=== PATIENT | male | born 1945 | race Caucasian/White ===

== ENCOUNTER 2020-04-06 08:40 | Outpatient (CLI) | payer MEDICARE, OTHER, SELFPAY ==
--- NOTE | 2020-04-06 08:48 | US_ITS ---
WS: [id number] RENAL ULTRASOUND HISTORY: CKD STAGE 3 COMPARISON: None available. TECHNIQUE: 2-D and color Doppler imaging of the kidney submitted. Right kidney: 10.1 cm x 4.0 cm x 4.9 cm. Normal echogenicity with no hydronephrosis or mass. Left kidney: 10.4 cm x 4.6 cm x 6.0 cm. Normal echogenicity with no hydronephrosis or mass. Cortical cyst lower pole measures 1.3 x 1.7 x 1.8 cm. No solid mass. Aorta: Normal. Urinary Bladder: Normal distention. US/US renal BI* [id number] IMPRESSION: 1. No hydronephrosis. 2. Simple cyst lower pole LEFT kidney.
== END 2020-04-06 08:41 | disposition home or self-care (01) ==
LOC: RAD 08:51 → CDL 08:53 → RAD 08:54
PROVIDERS: PCP Internal Medicine; Visit Provider Internal Medicine
DX: N28.1 Cyst of kidney, acquired (principal); N18.30 Chronic kidney disease, stage 3 unspecified
CPT/HCPCS: 76770

== ENCOUNTER 2023-09-14 08:05 | Outpatient (CLI) | payer MEDICARE, SELFPAY ==
--- NOTE | 2023-09-14 08:11 | US_ITS ---
WS: [id number] ULTRASOUND ABDOMEN CLINICAL INFORMATION: THROMBOCYTOPENIA COMPARISON: Ultrasound 2020 FINDINGS: Liver Size: Mild hepatomegaly. Craniocaudal length: 16.4 cm. Echogenicity: Coarse Surface nodularity: None. Mass (size and location): None. Bile ducts Intrahepatic ducts: Normal. Common bile duct diameter: 0.4 cm. Gallbladder Normal. Gallstones: None. Gallbladder sludge: None. Gallbladder wall thickening: None. Pericholecystic fluid: None. Sonographic Mayers sign: Absent. Pancreas Not well visualized Spleen Splenomegaly: None. Craniocaudal length: 9.9 cm. Right kidney: Normal. Hydronephrosis: None. Size: 9.5 cm x 4.3 cm x 4.5 cm Left kidney: Simple cyst described below. Hydronephrosis: None. Size: 10.9 cm x 3.6 cm x 4.1 cm. Abdominal aorta and IVC Visualized portions are normal. Ascites: None. IMPRESSION: 1. Mild hepatomegaly with coarse hepatic echogenicity compatible with fatty infiltration. 2. Normal gallbladder. Normal common bile duct. 3. Simple cyst LEFT kidney measuring 2.2 x 2.2 x 2.5 cm. Previously this measured 1.3 x 1.6 x 1.7 cm . No hydronephrosis.
== END 2023-09-14 08:06 | disposition home or self-care (01) ==
LOC: RAD 08:07
PROVIDERS: PCP Internal Medicine; Visit Provider Internal Medicine
DX: D69.6 Thrombocytopenia, unspecified (principal); R16.0 Hepatomegaly, not elsewhere classified; N28.1 Cyst of kidney, acquired
CPT/HCPCS: 76700

== ENCOUNTER → 2023-11-22 14:04 | Outpatient (BNVA) | payer MEDICARE, SELFPAY | PROVIDERS: PCP Internal Medicine; Visit Provider Dermatology | DX: D48.5 Neoplasm of uncertain behavior of skin (principal); L57.0 Actinic keratosis; L82.1 Other seborrheic keratosis; L57.8 Other skin changes due to chronic exposure to nonionizing radiation; Q80.0 Ichthyosis vulgaris; L81.4 Other melanin hyperpigmentation | CPT/HCPCS: 11102; 17000; 99204 ==

== ENCOUNTER → 2023-12-26 10:51 | Outpatient (BNVA) | payer MEDICARE, SELFPAY | PROVIDERS: PCP Internal Medicine; Visit Provider Dermatology | DX: C44.529 Squamous cell carcinoma of skin of other part of trunk (principal); L57.0 Actinic keratosis; L82.0 Inflamed seborrheic keratosis | CPT/HCPCS: 11602; 13101; 17000; 17110 ==

== ENCOUNTER 2024-05-06 07:45 | Outpatient (CLI) | payer MEDICARE, SELFPAY ==
--- NOTE | 2024-05-06 07:51 | XRR_ITS ---
PROCEDURE INFORMATION: Exam: XR Left Wrist Exam date and time: 05/06/2024 8:09 AM Age: 79 years old Clinical indication: Pain; Wrist; Left; Additional info: Pain in left wrist TECHNIQUE: Imaging protocol: Radiologic exam of the left wrist. Views: 3 or more views. Frontal Oblique Lateral COMPARISON: No relevant prior studies available. FINDINGS: Bones/joints: Moderate to severe generalized bony degenerative changes. Severe bony sclerosis, osteophytes and joint space narrowing between the distal radius ulna and proximal lunate. Moderate to severe degenerative changes identified within the 1st carpal metacarpal articulation. Moderate to severe lateral wrist sclerosis with osteophytes, joint space narrowing. Diffusely decreased bone density. No visualized evidence for acute bony fracture or dislocation. Soft tissues: The soft tissue appear unremarkable. Notes: If there is further concern, followup radiographs or MRI of the wrist may be performed for complete assessment. XR/XR wrist LT min 3V* [id number] IMPRESSION: 1. Moderate to severe chronic bony degenerative changes. 2. No acute bony fracture or dislocation.
== END 2024-05-06 07:46 | disposition home or self-care (01) ==
LOC: RAD 07:46
PROVIDERS: PCP Internal Medicine; Visit Provider Internal Medicine
DX: M19.032 Primary osteoarthritis, left wrist (principal); M25.732 Osteophyte, left wrist
CPT/HCPCS: 73110

== ENCOUNTER → 2024-05-12 14:16 | Outpatient (BNVA) | payer MEDICARE, SELFPAY | PROVIDERS: PCP Internal Medicine; Visit Provider Nurse Practitioner Family | DX: Q80.0 Ichthyosis vulgaris (principal); L82.1 Other seborrheic keratosis; L57.8 Other skin changes due to chronic exposure to nonionizing radiation; L81.4 Other melanin hyperpigmentation; Z85.828 Personal history of other malignant neoplasm of skin; L57.0 Actinic keratosis | CPT/HCPCS: 17000; 99214 ==

== ENCOUNTER → 2024-11-06 08:04 | Outpatient (BNVA) | payer MEDICARE, SELFPAY | PROVIDERS: PCP Internal Medicine; Visit Provider Nurse Practitioner Family | DX: Q80.0 Ichthyosis vulgaris (principal); L82.1 Other seborrheic keratosis; L57.8 Other skin changes due to chronic exposure to nonionizing radiation; L81.4 Other melanin hyperpigmentation; Z08 Encounter for follow-up examination after completed treatment for malignant neoplasm; Z85.828 Personal history of other malignant neoplasm of skin; L57.0 Actinic keratosis | CPT/HCPCS: 17000; 99214 ==

== ENCOUNTER → 2025-02-09 14:52 | Outpatient (BNVA) | payer MEDICARE, SELFPAY | PROVIDERS: PCP Internal Medicine; Visit Provider Nurse Practitioner Family | DX: L81.4 Other melanin hyperpigmentation (principal); L57.8 Other skin changes due to chronic exposure to nonionizing radiation; X32.XXXA Exposure to sunlight, initial encounter; L82.1 Other seborrheic keratosis; Z08 Encounter for follow-up examination after completed treatment for malignant neoplasm; Z85.828 Personal history of other malignant neoplasm of skin; S20.461A Insect bite (nonvenomous) of right back wall of thorax, initial encounter; X58.XXXA Exposure to other specified factors, initial encounter; L82.0 Inflamed seborrheic keratosis; L29.89 Other pruritus; R20.9 Unspecified disturbances of skin sensation; R20.8 Other disturbances of skin sensation; L53.8 Other specified erythematous conditions | CPT/HCPCS: 10120; 17110; 99213 ==

== ENCOUNTER → 2025-05-11 13:13 | Outpatient (BNVA) | payer MEDICARE, SELFPAY | PROVIDERS: PCP Internal Medicine; Visit Provider Nurse Practitioner Family | DX: L21.8 Other seborrheic dermatitis (principal); L82.1 Other seborrheic keratosis; L57.8 Other skin changes due to chronic exposure to nonionizing radiation; X32.XXXA Exposure to sunlight, initial encounter; L81.4 Other melanin hyperpigmentation; Z08 Encounter for follow-up examination after completed treatment for malignant neoplasm; Z85.828 Personal history of other malignant neoplasm of skin; L57.0 Actinic keratosis | CPT/HCPCS: 17000; 99214 ==

== ENCOUNTER 2025-05-19 13:06 | Outpatient (CLI) | payer MEDICARE, SELFPAY ==
--- NOTE | 2025-05-19 13:10 | XRR_ITS ---
PROCEDURE INFORMATION: Exam: XR Lumbosacral Spine Exam date and time: 05/19/2025 1:16 PM Age: 80 years old Clinical indication: Low back pain; PT states lower rib pain x few weeks. ; Additional info: Degenerative disc disease, lumbosacral spine w/ radiculopath TECHNIQUE: Imaging protocol: Radiologic exam of the lumbosacral spine. Views: 4 or 5 views. COMPARISON: No relevant prior studies available. FINDINGS: Bones/joints: Multilevel moderate to severe disc space narrowing and productive degenerative endplate changes throughout the spine most significant at L1-L2 and L5/S1. Soft tissues: Unremarkable. Vasculature: Scattered vascular calcifications. XR/XR lumbar spine min 4V [id number] IMPRESSION: 1. Multilevel moderate to severe disc space narrowing and productive degenerative endplate changes throughout the spine most significant at L1-L2 and L5/S1. 2. Scattered vascular calcifications.
--- NOTE | 2025-05-19 13:10 | XRR_ITS ---
PROCEDURE INFORMATION: Exam: XR Right Ribs Exam date and time: 05/19/2025 1:16 PM Age: 80 years old Clinical indication: Chest wall pain; Right; Additional info: Right sided rib pain TECHNIQUE: Imaging protocol: Radiologic exam of the right ribs. Views: 2 views. COMPARISON: No relevant prior studies available. FINDINGS: Bones/joints: Normal. Soft tissues: Normal. XR/XR ribs RT 2V* [id number] IMPRESSION: No acute findings.
== END 2025-05-19 13:07 | disposition home or self-care (01) ==
LOC: RAD 13:08
PROVIDERS: PCP Internal Medicine; Visit Provider Internal Medicine
DX: R07.81 Pleurodynia (principal); M51.17 Intervertebral disc disorders with radiculopathy, lumbosacral region; M51.369 Other intervertebral disc degeneration, lumbar region without mention of lumbar back pain or lower extremity pain; M51.379 Other intervertebral disc degeneration, lumbosacral region without mention of lumbar back pain or lower extremity pain; R93.7 Abnormal findings on diagnostic imaging of other parts of musculoskeletal system
CPT/HCPCS: 71100; 72110

== ENCOUNTER 2025-05-22 15:36 | Emergency (ER) | payer MEDICARE, SELFPAY ==
[2025-05-22 15:40] VITALS: BP 182/105; PULSE 128; RESP 18; TEMP 36.9; O2SAT 96; BMI 25.1
--- NOTE | 2025-05-22 15:40 | XRR_ITS ---
PROCEDURE INFORMATION: Exam: XR Abdomen Exam date and time: 05/22/2025 5:00 PM Age: 80 years old Clinical indication: Constipation TECHNIQUE: Imaging protocol: Radiologic exam of the abdomen. Views: Frontal supine view of the abdomen. 1 View. COMPARISON: CR XR lumbar spine min 4V [id number] 05/19/2025 1:16 PM FINDINGS: Gastrointestinal tract: Perhaps moderate colonic stool burden.Nonobstructive bowel gas pattern. Bones/joints: Lumbar spondylosis. XR/XR KUB [id number] IMPRESSION: Nonobstructive bowel gas pattern.
--- OUTSIDE RECORDS SUMMARY | 2025-05-22 15:42 | XMS_ITS | Encounter Summary ---
Author Organization [facility] Address [address] [place] [address] Care Team Providers Care Shredder Tender Name Role Phone Unavailable Primary Care Provider Unavailabl e Encounter Details Date Type Department Care Team (Latest Contact Info) Description 04/30/1998 Outpatient Historical [facility] Dermatology- [facility] [address] [place] [id number] Jarred Isaacs MD NO ADDRESS ON FILE Actinic keratosis (Primary Dx); Other seborrheic keratosis Social History Tobacco Use Types Packs/Day Years Used Date Smoking Tobacco: Never Assessed Sex and Gender Information Value Date Recorded Sex Assigned at Not on file 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
--- OUTSIDE RECORDS SUMMARY | 2025-05-22 15:42 | XMS_ITS | Encounter Summary ---
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
--- OUTSIDE RECORDS SUMMARY | 2025-05-22 15:42 | XMS_ITS | Encounter Summary ---
Author Organization [facility] Address [address] [place] [address] Care Team Providers Care Cardiology Fellow Name Role Phone Unavailable Primary Care Provider Unavailabl e Encounter Details Date Type Department Care Team (Late st Contact Info) Description 05/21/2002 Outpatient Historical [facility] Dermatology- [facility] [place] [address] [place] [phone] Social History Tobacco Use Types Packs/Day Years Used Date Smoking Tobacco: Never Assessed Sex and Gender Information Value Date Recorded Sex Assigned at Not on file 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
--- OUTSIDE RECORDS SUMMARY | 2025-05-22 15:42 | XMS_ITS | Encounter Summary ---
Author Organization [facility] Address [address] [facility] Attn: [place] [address] Care Team Providers Care House Cleaner Supervisor Name Role Phone Unavailable Primary Care Provider Unavailabl e Encounter Details Date Type Department Care Team (Late st Contact Info) Description 03/17/2002 Outpatient Historical Jarred Isaacs MD NO ADDRESS ON FILE Social History Tobacco Use Types Packs/Day Years Used Date Smoking Tobacco: Never Assessed Sex and Gender Information Value Date Recorded Sex Assigned at Not on file 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
--- OUTSIDE RECORDS SUMMARY | 2025-05-22 15:42 | XMS_ITS | Clinical Summary ---
Author Organization [facility] Address [address] [place] [address] Care Team Providers Care Cosmetic Sales Name Role Phone Unavailable Primary Care Provider Unavailabl e Medications No known medications Active Problems Problem Noted Date Diagnosed Date Fibromyalgia 05/13/2012 Family History Medical History Relation Name Comments Healthy Brother Stroke Father Heart Disease Mother Healthy Sister Healthy Son 1 Healthy Son 2 Relation Name Status Comments Brother Alive Father Mother Sister Alive Son 1 Alive Son 2 Alive Social History Tobacco Use Types Packs/Day Years Used Date Smoking Tobacco: Never Alcohol Use Standard Drinks/Week Comments Yes 0 (1 standard drink = 0.6 oz pur e alcohol) 1 12 oz. 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 Gender Identity Not on file Sexual Orientation Not on file Last Filed Vital Signs Vital Sign Reading Time Taken Comments Blood Pressure 154/92 05/13/2012 10:28 AM BARGE ENGINEER Pulse 64 05/13/2012 10:28 AM BARGE ENGINEER Temperature - - Respiratory Rate - - Oxygen Saturation - - Inhaled Oxygen Concentration - - Weight 85.3 kg (188 lb) 05/13/2012 10:28 AM BARGE ENGINEER Height 175.3 cm (5' 9 ) 05/13/2012 10:28 AM BARGE ENGINEER Body Mass Index 27.76 05/13/2012 10:28 AM BARGE ENGINEER Plan of Treatment Health Maintenance Due Date Last Done Comments DTAP/TDAP/TD VACCINES (1 - Tdap) 1962 PNEUMOCOCCAL VACCINE 50+ YEARS (1 of 1 - PCV) 02/08/19 93 ZOSTER VACCINE (1 of 2) 1993 RSV VACCINE (60+ or ) (1 - 1-dose 75+ series) 2018 INFLUENZA VACCINE (#1) 2025 Insurance MEDICARE PART A AND B [facility]
--- OUTSIDE RECORDS SUMMARY | 2025-05-22 15:42 | XMS_ITS | Encounter Summary ---
Author Organization [facility] Address [address] [place] [address] Care Team Providers Care Bun Machine Operator Name Role Phone Unavailable Primary Care Provider Unavailabl e Encounter Details Date Type Department Care Team (Latest Contact Info) Description 03/13/2002 Outpatient Historical [facility] Dermatology- [facility] [place] [address] [place] [phone] Jarred Isaacs MD NO ADDRESS ON FILE ACTINIC KERATOSIS (Primary Dx); Benign arabella scalp/skin neck; [place] arabella skin arm; MALIG NEOPLASM SKIN FACE NEC Social History Tobacco Use Types Packs/Day Years Used Date Smoking Tobacco: Never Assessed Sex and Gender Information Value Date Recorded Sex Assigned at Not on file 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
--- OUTSIDE RECORDS SUMMARY | 2025-05-22 15:42 | XMS_ITS | Encounter Summary ---
Author Organization [facility] Address [address] [place] [address] Care Team Providers Care Service Administrator Name Role Phone Unavailable Primary Care Provider Unavailabl e Encounter Details Date Type Department Care Team (Latest Contact Info) Description 06/01/2000 Outpatient Historical [facility] Dermatology- [facility] [address] [place] [phone] Jarred Isaacs MD NO ADDRESS ON FILE Actinic keratosis (Primary Dx); Ichthyosis congenita; Other seborrheic keratosis Social History Tobacco Use Types Packs/Day Years Used Date Smoking Tobacco: Never Assessed Sex and Gender Information Value Date Recorded Sex Assigned at Not on file 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
--- OUTSIDE RECORDS SUMMARY | 2025-05-22 15:42 | XMS_ITS ---
Author Organization Unknown [facility] Start Date Provider Encounter for Check-up [id number] [facility]
[2025-05-22 17:30] VITALS: BP 199/112; PULSE 104; O2SAT 92
[2025-05-22 17:30] LABS: Hematocrit 39.1 % (37-53); Hemoglobin 12.90 g/dL (11.27-16.99); Mean Corpuscular HGB Conc 33.0 g/dL (30-55); Mean Corpuscular Hemoglobin 29.1 pg (27-33); Mean Corpuscular Volume 88.3 fl (82-101); Nucleated Red Blood Cells % 0 %; Platelet Count 261 10^3/cmm (157-399); Red Blood Count 4.43 10^6/uL (3.85-5.65); White Blood Count 13.22 10^3/uL (3.29-11.43)
--- NOTE | 2025-05-22 17:31 | ED_ITS ---
HPI - Abdominal Pain 2 General: Chief Complaint: Abdominal Pain Stated Complaint: No BM X3 Time Seen by Provider: 05/22/25 17:04 History of Present Illness: Patient is a 80-year-old gentleman presents to the emergency room with some abdominal discomfort, however mainly complaining of constipation. He states his last bowel movement was 3 days ago. He took a suppository, Dulcolax, and started per rectum, however when he had the urge to go to the bathroom, the suppository came out. Denies any nausea, vomiting. Patient was seen by primary care 05/19, and did not have constipation symptoms at that time. He cannot remember his last colonoscopy, possibly between 10-20 years ago. Associated Symptoms: Reports bloating, change in bowel habits, change in stool character and constipation; Denies belching, chills, fever(s), heartburn, nausea and vomiting Related Data Previous Rx's ?Medication ?Instructions ?Recorded lactulose 10 gram/15 mL oral 30 g (45 mL) PO Q2H 48 ho urs #473 05/22/25 solution mL Allergies Allergy/AdvReac Type Severity Reaction Status Date / Time No Known Allergies Allergy Unverified 08/20/20 07:48 Review of Systems 2 General: Reports: 10 or more systems reviewed and unremarkable except in HPI and below Const: Denies: fever(s) or chills Eyes: Denies: change in vision or blurry vision ENMT: Denies: throat pain or mouth pain Card: Denies: chest pain or palpitations GI: Reports: abdominal pain, constipation, bloating, change in bowel habits and change in stool character; Denies: nausea, vomiting, dysphagia, heartburn, belching, pain on defecation or rectal pain : Denies: flank pain or difficulty urinating Musc: Denies: neck pain, back pain or extremity pain Skin/Breast: Denies: rash or pruritus Neuro: Denies: headache(s) or numbness in extremities Psych: Denies: anxiety or depression PFSH ED 2 PFSH: Social History Smoking and tobacco/nicotine status: former use of tobacco/nicotine Physical Exam 2 Const: COMMON NORMALS: no acute distress, average body habitus, patient oriented x3, no limitations, healthy appearing, alert and well nourished HENMT: COMMON NORMALS: normocephalic, atraumatic and hearing grossly normal bilaterally HEAD & SCALP: normocephalic and atraumatic Eye: COMMON NORMALS: Equal, round and reactive pupils present, EOMs intact bilaterally, conjunctivae normal, no scleral icterus and no papilledema C ONJUNCTIVA: Yes conjunctivae normal PUPIL: Yes Equal, round and reactive pupils present DIRECT OPHTHALMOSCOPY: Yes no papilledema Neck/C-Spine: COMMON NORMALS: full ROM, no lymphadenopathy, supple and no meningeal signs Lymph: LYMPHATIC: no lymphadenopathy noted Chest: COMMONS NORMALS: normal inspection of the chest and normal palpation of entire chest wall Resp: COMMON NORMALS: normal respiratory effort, No retractions, No use of accessory muscles and clear to auscultation bilaterally AUSCULTATION: clear to auscultation bilaterally Cardio: COMMON NORMALS: regular rate, regular rhythm, S1 normal heart sound present and S2 normal heart sound present RATE: regular rate RHYTHM: r egular rhythm HEART SOUNDS: S1 normal heart sound present and S2 normal heart sound present GI: COMMON NORMALS: Soft to palpation and No hepatosplenomegaly present A USCULTATION: Yes Hypoactive bowel sounds present PALPATION: Yes Soft to palpation, Yes Tenderness to palpation present (GI) Details: RUQ and Yes No hepatosplenomegaly present : COMMON NORMALS: Yes no CVA tenderness BLADDER/KIDNEY EXAM: Yes no CVA tenderness Back/Pelvis: COMMON NORMALS: no CVA tenderness Extremity: COMMON NORMALS: normal to inspection, full ROM and capillary refill normal Neuro: COMMON NORMALS: patient oriented x3 SENSORIUM/ORIENTATION: Yes alert MENINGEAL SIGNS: Yes no meningeal signs Course 2 Reevaluation(s): Reevaluation #1: Patient states he has attempted to have a BM on 4 occasions since admission here. He states just air. Will repeat lactulose. Awaiting ultrasound of right upper quadrant Reevaluation #2: Patient had BM x 2. Pain improved. Vital Signs: Vital signs: Vital Signs Temperature 98.4 F 05/22/25 15:40 Pulse Rate 128 H 05/22/25 18:30 Respiratory Rate 18 05/22/25 15:40 Blood Pressure 149/94 05/22/25 18:30 Pulse Oximetry 94 05/22/25 18:30 Oxygen Delivery Me thod Room Air 05/22/25 18:30 MDM - Abdominal Pain Medical Decision Making Patient is a 80-year-old gentleman that reports to the emergency room with no bowel movement, and abdominal pain. Lipase is elevated at 492. Will obtain ultrasound of right upper quadrant. Medical Records I reviewed the patient's medical records. Lab Data I reviewed the patient's lab results. 05/22/25 17:23 05/22/25 17:23 Labs/Radiology: Radiology Impressions KUB X-Ray 05/22/25 15:40 IMPRESSION: Nonobstructive bowel gas pattern. Abdomen Ultrasound 05/22/25 18:40 IMPRESSION: 1. Fatty liver. 2. Additional findings, as above. Laboratory Results WBC 13.22 10^3/uL (3.29-11.43) H 05/22/25 17:23 RBC 4.43 10^6/uL (3.85-5.65) 05/22/25 17:23 Hgb 12.90 g/dL (11.27-16.99) 05/22/25 17:23 Hct 39.1 % (37-53) 05/22/25 17:23 MCV 88.3 fl (82-101) 05/22/25 17:23 MCH 29.1 pg (27-33) 05/22/25 17:23 MCHC 33.0 g/dL (30-55) 05/22/25 17:23 RDW 13.0 % (12.1-15.1) 05/22/25 17:23 Plt Count 261 10^3/cmm (157-399) 05/22/25 17:23 MPV 9.9 fL (7.4-10.4) 05/22/25 17:23 Neut % (Auto) 79.6 % 05/22/25 17:23 Lymph % (Auto) 9.7 % 05/22/25 17:23 Taliaferro % (Auto) 9.5 % 05/22/25 17:23 Eos % (Auto) 0.3 % 05/22/25 17:23 Baso % (Auto) 0.3 % 05/22/25 17:23 Neut # (Auto) 10.52 10^3/uL (1.8-7.7) H 05/22/25 17:23 Lymph # (Auto) 1.3 10^3/uL (0.8-4.8) 05/22/25 17:23 Taliaferro # (Auto) 1.3 10^3/uL (0.2-0.9) H 05/22/25 17:23 Eos # (Auto) 0.0 10^3/uL (0.0-0.8) 05/22/25 17:23 Baso # (Auto) 0.0 10^3/uL (0.0-0.1) 05/22/25 17:23 Nucleated RBC % (auto) 0 % 05/22/25 17:23 Nucleated RBCs # 0.0 /100WBC 05/22/25 17:23 Sodium 133 mmol/L (136-145) L 05/22/25 17:23 Potassium 4.1 mmol/L (3.5-5.1) 05/22/25 17:23 Chloride 96 mmol/L (98-107) L 05/22/25 17:23 Carbon Dioxide 26 mmol/L (22-29) 05/22/25 17:23 Anion Gap 15.1 (5-19) 05/22/25 17:23 BUN 25 mg/dL (8-23) H 05/22/25 17:23 Creatinine 1.0 mg/dL (0.7-1.2) 05/22/25 17:23 GFR Calculation Not Reportable 05/22/25 17:23 Glucose 112 mg/dL (65-115) 05/22/25 17:23 Calculated Osmolality 281 mOsm/kg (285-295) L 05/22/25 17:23 Calcium 9.3 mg/dL (8.5-10.5) 05/22/25 17:23 Total Bilirubin 0.5 mg/dL (0.15-1.2) 05/22/25 17:23 AST 29 U/L (0-40) 05/22/25 17:23 ALT 30 U/L (0-41) 05/22/25 17:23 Alkaline Phosphatase 116 U/L (40-130) 05/22/25 17:23 Total Protein 7.4 g/dL (6.6-8.7) 05/22/25 17:23 Albumin 3.7 g/dL (3.5-5.2) 05/22/25 17:23 Globulin 3.7 g/dL (1.3-4.6) 05/22/25 17:23 Lipase 482 U/L (13-60) H 05/22/25 17:23 All radiology interpretation(s) finalized by discharge ED provider radiology interpretation(s): Large fecal content with nonobstructive pattern on my view. Discharge Plan Discharge Patient Disposition: Home Clinical Impression: Constipation Qualifiers: Constipation type: slow transit constipation Qualified Code(s): K59.01 - Slow transit constipation Condition: Stable Prescriptions: New lactulose 10 gram/15 mL solution 30 g PO Q2H 2 Days Qty: 473 0RF Rx Instructions: until desired laxative effect Discharge Orders: Discharge ED (Routine); Ordered 05/22/25 Ordered By: Samra Mazariegos Referrals: Rusty Allen MD [Physician, General Surgery] - 7-10 days Referral Note: Needs Colonoscopy Ally Taylor MD [Primary Care Provider, Internal Medicine] Patient Instructions: Abdominal Pain (ED), Patient Portal & Smith Instructions Activity Restrictions/Additional Instructions: - You need a colonoscopy. Referral has been made to Dr. Allen. If you do not get a call from their office, contact Dr. Allen's office to make a appointment. - Clear liquid diet only until all the symptoms resolve - Avoid narcotics - At the pharmacy: Lactulose. Use as directed. - To help with daily bowel movements: Obtain a probiotic [id number]. Thank you for choosing [facility] for your healthcare needs today. You have been screened and evaluated and felt safe for discharge. Health conditions do change or evolve sometimes and as such it is important that you follow up with your Primary Doctor to be re checked, 3-5 days is a general good time frame for follow up. You are always welcome to return to the ED for re assessment if your symptoms are worsening or you have new concerns Print Language: Mosotho Coding Level of Care Code ED Bit Sander for Sarabjit Browne
[2025-05-22] MEDS: lactulose oral liq 20 gm/30 mL UDC 30 GM PO ×2 (17:33→19:09)
[2025-05-22 17:51] LABS: Alanine Aminotransferase 30 U/L (0-41); Albumin Level 3.7 g/dL (3.5-5.2); Alkaline Phosphatase 116 U/L (40-130); Anion Gap 15.1 (5-19); Aspartate Amino Transferase 29 U/L (0-40); Blood Urea Nitrogen 25 mg/dL (8-23); Calcium 9.3 mg/dL (8.5-10.5); Carbon Dioxide 26 mmol/L (22-29); Chloride 96 mmol/L (98-107); Creatinine Clr Calc Pharmacy 59.0185; Globulin 3.7 g/dL (1.3-4.6); Glucose 112 mg/dL (65-115); Osmolality Calculated 281 mOsm/kg (285-295); Potassium 4.1 mmol/L (3.5-5.1); Sodium 133 mmol/L (136-145); Total Protein 7.4 g/dL (6.6-8.7)
[2025-05-22 18:02] LABS: Lipase 482 U/L (13-60)
[2025-05-22 18:30] VITALS: BP 149/94; PULSE 128; O2SAT 94
--- NOTE | 2025-05-22 18:40 | USR_ITS ---
PROCEDURE INFORMATION: Exam: US Abdomen, Limited; Right Upper Quadrant Exam date and time: 05/22/2025 7:28 PM Age: 80 years old Clinical indication: Abdominal pain; Other: Back pain; Additional info: Elevated lipase, abdominal pain TECHNIQUE: Imaging protocol: Real time ultrasound of the abdomen with image documentation. Limited exam focused on the right upper quadrant. COMPARISON: US abdomen complete* [id number] 09/14/2023 8:24 AM FINDINGS: Liver: Mildly echogenic, suggesting fatty infiltration. Questionable 9 mm low-density hepatic lesion, nonspecific in appearance. Gallbladder: No gallstones. No gallbladder wall thickening or pericholecystic fluid. Negative sonographic Mayers's sign, as per the performing authorization representative. Biliary ducts: No stones. No ductal dilatation. Pancreas: Suboptimally visualized. Right kidney: No mass. No definite stones. No hydronephrosis. US/US abdomen limited [id number] IMPRESSION: 1. Fatty liver. 2. Additional findings, as above.
--- NOTE | 2025-05-22 19:05 | PC.NURSE ---
PT is not compliant with continuous monitoring at this time. PT states he is needing to get up and down too much. Pt education provided we can place him on monitors when returning. Pt states he is fine.
--- NOTE | 2025-05-25 07:39 | DCPLANNER ---
messaged gen surg for er f/u
== END 2025-05-22 20:40 | disposition home or self-care (01) ==
PROVIDERS: Emergency Medicine; Emergency Provider Physician Assistant; PCP Internal Medicine
DX: K59.01 Slow transit constipation (principal); Z87.891 Personal history of nicotine dependence
CPT/HCPCS: 36415; 74018; 76705; 80053; 83690; 85025; 99284; J9999

== ENCOUNTER 2025-05-28 12:48 | Outpatient (CLI) | payer MEDICARE, SELFPAY ==
--- NOTE | 2025-05-28 12:52 | CT_ITS ---
WS: [id number] CT CHEST, ABDOMEN AND PELVIS WITH CONTRAST HISTORY: CHRONIC COUGH, WEIGHT LOSS, ABD PAIN TECHNIQUE: Contiguous 5 mm axial imaging performed through the chest, abdomen and pelvis with IV contrast, oral contrast has not been provided. Coronal and sagittal reformats chest. Coronal and sagittal reformats through the abdomen and pelvis. All CT scans at [facility] use at least one of these dose optimization techniques: automated exposure control; mA and/or kV adjustment per patient size (includes targeted exams where dose is matched to clinical indication); or iterative reconstruction. CONTRAST: Omnipaque 350; 100 mL IV. DLP: 728.09 mGy.cm COMPARISON: 11/03/2011, ultrasound abdomen is 05/22/[address]: Lungs are clear. No pulmonary nodule or mass. Normal size aorta. Normal size pulmonary artery. Normal size heart. No pericardial or pleural effusions. There are a few axillary, mediastinal and hilar lymph nodes but they are not significantly enlarged. The largest lymph node is RIGHT hilar at 9 mm. No hiatal hernia. Enhancing destructive expansile lesion involving the body of the RIGHT scapula. Mass measures 2.9 x 3.8 cm. Additional expansile destructive bone lesion involving the RIGHT anterolateral sixth rib. Additional destructive bone lesion with soft tissue involving the posterior medial LEFT 11th rib.. There is also lytic change in the anterior T11 vertebral body. Abdomen CT: Liver is normal size. There are several low-attenuation nonenhancing masses suggestive of metastatic disease. These lesions are in the RIGHT lobe of the liver with the largest measuring 1.8 cm towards the diaphragm. Additional subcentimeter lesion in the LEFT lobe of the liver highly suspicious for metastatic site. Portal vein is patent. No intrahepatic duct dilatation. Gallbladder is present and slightly contracted. Normal size spleen. There are a few irregular tubular structures within the spleen which do not enhance. No enhancing lesions. No adrenal mass. Abnormal pancreas. The pancreas is atrophic with extensive calcifications from chronic pancreatitis. Pancreatic duct is dilated throughout. Common bile duct is normal at the pancreatic head. No obvious pancreatic head mass identified. Mild perinephric stranding around the RIGHT kidney. There are a few too small to characterize hypodensities. Nonobstructing central calcification. Ureter is not dilated. Normal size LEFT kidney with no obstruction. Nonobstructing central calcification. Mild perinephric stranding. 2.8 x 2.4 cm cyst in the lower pole. LEFT ureter is not obstructed. Stomach is not distended. There is mild asymmetric wall thickening of the stomach. Greater curvature the stomach measures 1.7 cm. Mild asymmetric wall thickening within the second portion of the duodenum. No small bowel obstruction. The appendix is identified and normal. Constipation. No colitis. No significant diverticulitis. There is several abnormal lymph nodes in the upper abdomen at the gastrohepatic ligament and the celiac axis. The largest is mildly hypervascular measuring 1.5 cm. No retroperitoneal or inguinal enlarged lymph nodes. Pelvic CT: No free fluid in the pelvis. Urinary bladder is minimally distended. Patent bilateral inguinal canals containing fat only. Mild muscle atrophy surrounding the RIGHT hip. Large destructive bone lesion involving the RIGHT ilium. Enhancing soft tissue mass and destructive bone measures 3.2 x 4.3 cm. There is a moth-eaten appearance to the RIGHT ilium with pathological fracture likely. Additional lytic area in the LEFT ischium. There are a few additional subtle areas of low- attenuation within the bones of the pelvis. Additional metastatic disease in the RIGHT ischial tuberosity. Suspected additional mass in the LEFT iliac bone. CT/CT chest abdpel w/*[id number] IMPRESSION: 1. Hepatic metastasis. Several sites in the liver with the largest measuring 1 .8 cm. 2. Lymphadenopathy in the gastrohepatic ligament and celiac axis. Largest lymp h node 1.5 cm. 3. Pancreas is abnormal. Pancreas is atrophic with a dilated pancreatic duct a nd extensive calcifications. The common bile duct at the pancreatic head is nor mal. These findings could all be seen with chronic pancreatitis or neoplasm. No identifiable pancreatic mass seen. 4. No adrenal mass. 5. Stomach is not distended. There is mild diffuse gastric wall thickening. Th ere is also mild asymmetric thickening of the second portion of the duodenum. C onsider upper endoscopy to evaluate the stomach for possible infiltrating gastr ic carcinoma. 6. No GI tract obstruction. Normal appendix. 7. Numerous sites of bony metastasis with expansile lesions and soft tissue en hancing components. The most concerning lesion involves the RIGHT ilium as ther e is a pathological fracture. The lesion extends through the entire ilium. 8. Additional metastatic sites include the RIGHT anterolateral sixth rib, body of the RIGHT scapula, anterior T11 vertebral body and the posterior medial LEF T rib. 9. Extensive metastatic sites in the RIGHT ilium and bilaterally in the ischiu m. Favor there are additional metastatic sites also. 10. No evidence for pulmonary metastasis or adenopathy. Notified Ally Taylor MD at 05/29/2025 11:10 AM.
[2025-05-28] MEDS: iohexol 350 mg/mL 500 mL Btl (per mL) IV (13:35)
== END 2025-05-28 12:49 | disposition home or self-care (01) ==
LOC: RAD 12:50
PROVIDERS: PCP Internal Medicine; Visit Provider Internal Medicine
DX: R63.4 Abnormal weight loss (principal); R35.89 Other polyuria; D69.6 Thrombocytopenia, unspecified; R05.3 Chronic cough
CPT/HCPCS: 71260; 74177

== ENCOUNTER 2025-06-02 07:51 | Oncology outpatient (recurring) (ONCR) | payer MEDICARE, SELFPAY | END 2025-06-24 23:59 | disposition home or self-care (01) | PROVIDERS: PCP Internal Medicine; Visit Provider Internal Medicine Medical Oncology | DX: K76.89 Other specified diseases of liver (principal); M89.8X8 Other specified disorders of bone, other site; R52 Pain, unspecified; Z79.899 Other long term (current) drug therapy | CPT/HCPCS: 99205 ==

== ENCOUNTER → 2025-06-04 10:09 | Outpatient (BNVA) | payer MEDICARE, SELFPAY | PROVIDERS: PCP Internal Medicine; Visit Provider Student in an Organized Health Care Education/Training Program | DX: C79.52 Secondary malignant neoplasm of bone marrow (principal); C78.7 Secondary malignant neoplasm of liver and intrahepatic bile duct; R03.0 Elevated blood-pressure reading, without diagnosis of hypertension; C79.9 Secondary malignant neoplasm of unspecified site | CPT/HCPCS: 99204 ==

== ENCOUNTER 2025-06-06 05:13 | Inpatient (IN) | payer MEDICARE, SELFPAY ==
[2025-06-06] VITALS (13 sets, daily range): BP systolic 98–133; BP diastolic 58–82; PULSE 74–129; RESP 16–23; TEMP 36.4–36.9; O2SAT 91–98; BMI 23.9
--- OUTSIDE RECORDS SUMMARY | 2025-06-06 05:19 | XMS_ITS | Encounter Summary ---
Author Organization [facility] Address [address] [place] [address] Care Team Providers Care Director Of Alumni Relations Name Role Phone Unavailable Primary Care Provider Unavailabl e Encounter Details Date Type Department Care Team (Latest Contact Info) Description 06/01/2000 Outpatient Historical [facility] Dermatology- [facility] [place] [address] [place] [id number] Jarred Isaacs MD NO ADDRESS ON FILE Actinic keratosis (Primary Dx); Ichthyosis congenita; Other seborrheic keratosis Social History Tobacco Use Types Packs/Day Years Used Date Smoking Tobacco: Never Assessed Sex and Gender Information Value Date Recorded Sex Assigned at Not on file 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
--- OUTSIDE RECORDS SUMMARY | 2025-06-06 05:19 | XMS_ITS | Encounter Summary ---
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
--- OUTSIDE RECORDS SUMMARY | 2025-06-06 05:19 | XMS_ITS | Encounter Summary ---
Author Organization [facility] Address [address] [place] [address] Care Team Providers Care Cellophane Bag Machine Operator Name Role Phone Unavailable Primary Care Provider Unavailabl e Encounter Details Date Type Department Care Team (Late st Contact Info) Description 05/21/2002 Outpatient Historical [facility] Dermatology- [facility] [place] [address] [place] [phone] Social History Tobacco Use Types Packs/Day Years Used Date Smoking Tobacco: Never Assessed Sex and Gender Information Value Date Recorded Sex Assigned at Not on file 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
--- OUTSIDE RECORDS SUMMARY | 2025-06-06 05:19 | XMS_ITS | Encounter Summary ---
Author Organization [facility] Address [address] [place] [address] Care Team Providers Care Security Technician Name Role Phone Unavailable Primary Care Provider Unavailabl e Encounter Details Date Type Department Care Team (Latest Contact Info) Description 03/13/2002 Outpatient Historical [facility] Dermatology- [facility] [place] [address] [place] [phone] Jarred Isaacs MD NO ADDRESS ON FILE ACTINIC KERATOSIS (Primary Dx); Benign arabella scalp/skin neck; Malig arabella skin arm; MALIG NEOPLASM SKIN FACE NEC Social History Tobacco Use Types Packs/Day Years Used Date Smoking Tobacco: Never Assessed Sex and Gender Information Value Date Recorded Sex Assigned at Not on file 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
--- OUTSIDE RECORDS SUMMARY | 2025-06-06 05:19 | XMS_ITS | Clinical Summary ---
Author Organization [facility] Address [address] 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 Gender Identity Not on file Sexual Orientation Not on file Last Filed Vital Signs Vital Sign Reading Time Taken Comments Blood Pressure 154/92 05/13/2012 10:28 AM AIR PRESS OPERATOR Pulse 64 05/13/2012 10:28 AM AIR PRESS OPERATOR Temperature - - Respiratory Rate - - Oxygen Saturation - - Inhaled Oxygen Concentration - - Weight 85.3 kg (188 lb) 05/13/2012 10:28 AM AIR PRESS OPERATOR Height 175.3 cm (5' 9 ) 05/13/2012 10:28 AM AIR PRESS OPERATOR Body Mass Index 27.76 05/13/2012 10:28 AM AIR PRESS OPERATOR Plan of Treatment Health Maintenance Due Date Last Done Comments DTAP/TDAP/TD VACCINES (1 - Tdap) 1962 PNEUMOCOCCAL VACCINE 50+ YEARS (1 of 1 - PCV) 02/08/19 93 ZOSTER VACCINE (1 of 2) 1993 RSV VACCINE (60+ or ) (1 - 1-dose 75+ series) 2018 INFLUENZA VACCINE (#1) 2025 Insurance MEDICARE PART A AND B [facility]
--- OUTSIDE RECORDS SUMMARY | 2025-06-06 05:19 | XMS_ITS | Encounter Summary ---
Author Organization 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
--- OUTSIDE RECORDS SUMMARY | 2025-06-06 05:19 | XMS_ITS | Encounter Summary ---
Author Organization [facility] Address [address] [place] [address] Care Team Providers Care Radiologic Technology Instructor Name Role Phone Unavailable Primary Care Provider Unavailabl e Encounter Details Date Type Department Care Team (Latest Contact Info) Description 04/30/1998 Outpatient Historical [facility] Dermatology- 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
--- NOTE | 2025-06-06 05:35 | ECG_ITS ---
[facility] 2025[facility]06[facility]06 Pat Name: Kennedy Yao Department: Room: Gender: Male Delinquent Account Clerk: : 1945 Requested By: Gino Brown Order Number: [id number] Audrey MD: Isaac Senior M.D. Measurements Intervals [place] Rate: 142 P: 0 RI: 0 QRS: 18 QRSD: 78 T: 82 QT: 247 QTc: 380 Interpretive Statements ATRIAL FIBRILLATION WITH RAPID VENTRICULAR RESPONSE ABNORMAL RHYTHM ECG No previous ECG available for comparison Electronically Signed On 06-06-2025 19:44:32 STEEL RULE INSPECTOR by Isaac Senior M.D. [email or web address]
[2025-06-06] MEDS: dilTIAZem 5 mg/mL SDV 5 mL 20 MG IVP (05:47)
--- NOTE | 2025-06-06 05:49 | ED_ITS ---
Documented by User: Gino Padilla DO 06/07/25 01:43 HPI - Abdominal Pain 2 General: Chief Complaint: Abdominal Pain Stated Complaint: still constipated, pain weak Time Seen by Provider: 06/06/25 05:32 History of Present Illness: Patient is a 80yo male presenting with constipation that has been ongoing for at least several days. He was seen last Sunday and was prescribed a bowel preparation medication . He reports that the preparation successfully cleared his bowels initially, but despite subsequent treatment with franki;alLax, he continues to have difficulty with bowel movements. He describes feeling the urge to defecate but being unable to squeeze anything out and requiring significant straining when he is able to pass stool. The patient also reports concerns about his urinary system being affected, stating it is hard for me to go and that his urinary symptoms seem to correlate with his bowel issues. He reports abdominal pain on palpation that has worsened recently, which he attributes possibly to pain medications and laxatives. The patient mentions a rapid decline in his health over the past month, having been quite active until then. He has a colonoscopy scheduled for Sunday and an endoscopy for Sunday, reportedly related to cancer concerns. His primary care physician, Dr. Ally Martins, ordered a CAT scan which revealed bone lesions. The patient also reports recent changes in vital signs, with lower blood pressure readings and elevated heart rate on his home monitoring device. He denies chest pain but acknowledges weakness and some swelling in his feet. Related Data Home Medications ?Medication ?Instructions ?Recorded ?Confirmed lisinopril 20 mg tablet 20 mg PO DAILY 06/02/2505/25 polyethylene glycol 3350 17 17 g PO DAILY 06/06/25 gram/dose oral powder (Miralax) Previous Rx's ?Medication ?Instructions ?Recorded hydrocodone 10 mg-acetaminophen 1 tab PO Q6H PRN pain 30 days #90 06/02/25 325 mg tablet tabs Allergies Allergy/AdvReac Type Severity Reaction Status Date / Time No Known Allergies Allergy Unverified 06/04/25 10:10 PFSH ED 2 PFSH: Social History Smoking and tobacco/nicotine status: former use of tobacco/nicotine Physical Exam 2 Const: GENERAL APPEARANCE: cooperative, ill appearing and frail appearing O RIENTATION/CONSCIOUSNESS: Yes awake, Yes oriented to person, Yes oriented to place and Yes oriented to time HENMT: COMMON NORMALS: normocephalic, atraumatic and Normal external nose present HEAD & SCALP: normocephalic and atraumatic FACE & SINUS: normal facial exam and face symmetric NOSE: Normal external nose present Eye: COMMON NORMALS: Equal, round and reactive pupils present and EOMs intact bilaterally PUPIL: Yes Equal, round and reactive pupils present Neck/C-Spine: GENERAL: Yes trachea midline Chest: CHEST: Yes Symmetrical chest wall rise Resp: COMMON NORMALS: normal respiratory effort and clear to auscultation bilaterally EFFORT & INSPECTION: Yes symmetric chest movement A USCULTATION: clear to auscultation bilaterally and diminished lung sounds Cardio: RATE: tachycardic RHYTHM: abnormal rhythm irregularly irregular GI: COMMON NORMALS: Normal to inspection, nondistended, normoactive bowel sounds present and Soft to palpation PALPATION: Yes Soft to palpation and Yes Tenderness to palpation present (GI) (diffuse) Extremity: GENERAL: Yes edema Neuro: NEGRITA COMA SCALE: document GCS findings Negr[place] coma scale eye opening: Spontaneous Negrita coma scale verbal response: Orientated Negrita coma scale motor response: Obey commands Negrita coma scale total score: 15 S ENSORIUM/ORIENTATION: Yes oriented to person, Yes oriented to place and Yes oriented to time SENSORY EXAM: Yes extremities (intact) Psych: COMMON NORMALS: speech normal SPEECH: Yes normal speech Skin: COMMON NORMALS: no rashes or lesions noted GENERAL SKIN EXAM: no rashes or lesions noted Course 2 Vital Signs: Vital signs: Vital Signs Temperature 97.5 F L 06/06/25 21:00 Pulse Rate 84 06/07/25 00:26 Respiratory Rate 23 H 06/07/25 00:26 Blood Pressure 137/63 06/07/25 00:26 Pulse Oximetry 94 06/07/25 00:26 Oxygen Delivery Me thod Room Air 06/06/25 16:00 MDM - Abdominal Pain Medical Decision Making 80-year-old male patient with a history of recently diagnosed likely colon cancer. He complains of generalized weakness, fast heart rate, and constipation. His heart rate has been as high as 170 here. Irregular in atrial fibrillation no chest pain. No significant ST wave changes on EKG. Given a bolus of diltiazem, and started on a drip. Bolus seem to help with heart rate reduction to 100 from 160-170. Laboratories pending in this patient. Imaging is as well. He will be checked out to the oncoming physician at shift change. Lab Data 06/06/25 05:37 06/06/25 11:30 Labs/Radiology: Radiology Impressions Chest X-Ray 06/06/25 05:54 IMPRESSION: No acute findings. KUB X-Ray 06/06/25 05:54 IMPRESSION: No acute findings. Chest/Abdomen/Pelvis CT 06/06/25 07:27 IMPRESSION: Metastatic disease probably central lymph nodes and bone. No finding to explain the patient's sepsis. IMPRESSION: 1. Extensive metastatic disease. Several metastases appear to have slightly progressed since the recent prior study. 2. No findings to explain sepsis. COMMENTS: Consistent with the [employer]'s Incidental Findings Committee white paper (J Am Quan Radiol 2018): Any incidental renal lesion less than 1 cm or classified as too small to characterize, or any incidental cystic renal lesion characterized as simple-appearing, is likely benign. No follow-up imaging is recommended for these lesions per consensus recommendations based on imaging criteria. Laboratory Results WBC 21.49 10^3/uL (3.29-11.43) H 06/06/25 05:37 RBC 4.45 10^6/uL (3.85-5.65) 06/06/25 05:37 Hgb 12.80 g/dL (11.27-16.99) 06/06/25 05:37 Hct 38.5 % (37-53) 06/06/25 05:37 MCV 86.5 fl (82-101) 06/06/25 05:37 MCH 28.8 pg (27-33) 06/06/25 05:37 MCHC 33.2 g/dL (30-55) 06/06/25 05:37 RDW 13.4 % (12.1-15.1) 06/06/25 05:37 Plt Count 277 10^3/cmm (157-399) 06/06/25 05:37 MPV 10.0 fL (7.4-10.4) 06/06/25 05:37 Neut % (Auto) 83.7 % 06/06/25 05:37 Lymph % (Auto) 7.1 % 06/06/25 05:37 Chaves % (Auto) 7.9 % 06/06/25 05:37 Eos % (Auto) 0.1 % 06/06/25 05:37 Baso % (Auto) 0.3 % 06/06/25 05:37 Neut # (Auto) 17.99 10^3/uL (1.8-7.7) H 06/06/25 05:37 Lymph # (Auto) 1.5 10^3/uL (0.8-4.8) 06/06/25 05:37 [place]aves # (Auto) 1.7 10^3/uL (0.2-0.9) H 06/06/25 05:37 Eos # (Auto) 0.0 10^3/uL (0.0-0.8) 06/06/25 05:37 Baso # (Auto) 0.1 10^3/uL (0.0-0.1) 06/06/25 05:37 Nucleated RBC % (auto) 0 % 06/06/25 05:37 Nucleated RBCs # 0.0 /100WBC 06/06/25 05:37 Sodium 129 mmol/L (136-145) L 06/06/25 05:37 Potassium 4.7 mmol/L (3.5-5.1) 06/06/25 05:37 Chloride 90 mmol/L (98-107) L 06/06/25 05:37 Carbon Dioxide 27 mmol/L (22-29) 06/06/25 05:37 Anion Gap 16.7 (5-19) 06/06/25 05:37 BUN 22 mg/dL (8-23) 06/06/25 05:37 Creatinine 1.2 mg/dL (0.7-1.2) 06/06/25 05:37 GFR Calculation Not Reportable 06/06/25 05:37 Glucose 137 mg/dL (65-115) H 06/06/25 05:37 Calculated Osmolality 273 mOsm/kg (285-295) L 06/06/25 05:37 Lactic Acid 3.2 mmol/L (0.5-2.2) H 06/06/25 05:37 Lactic Acid (Sepsis) 2.1 mmol/L (0.5-2.2) 06/06/25 08:26 Calcium 8.9 mg/dL (8.5-10.5) 06/06/25 05:37 Magnesium 2.7 mg/dL (1.7-2.3) H 06/06/25 05:37 Total Bilirubin 0.8 mg/dL (0.15-1.2) 06/06/25 05:37 AST 21 U/L (0-40) 06/06/25 05:37 ALT 21 U/L (0-41) 06/06/25 05:37 Alkaline Phosphatase 128 U/L (40-130) 06/06/25 05:37 Troponin T Baseline 40 ng/L (0-15) H 06/06/25 05:37 Troponin T 60 Minute 32.82 ng/L (0-15) H 06/06/25 06:27 Delta Troponin T -7.18 ABS# (0-10) L 06/06/25 06:27 C-Reactive Protein 227.3 mg/L (0.0-4.9) H 06/06/25 05:37 NT-Pro-B Natriuret Pep 2645 pg/mL (0-450) H 06/06/25 05:37 Total Protein 6.0 g/dL (6.6-8.7) L 06/06/25 05:37 Albumin 3.1 g/dL (3.5-5.2) L 06/06/25 05:37 Globulin 2.9 g/dL (1.3-4.6) 06/06/25 05:37 Lipase 78 U/L (13-60) H 06/06/25 05:37 TSH 4.44 uIU/mL (0.27-4.20) H 06/06/25 05:37 Urine Color [place] (Yellow) A 06/06/25 06:38 Urine Appearance Clear (CLEAR) 06/06/25 06:38 Urine pH 5.5 (5-7) 06/06/25 06:38 Ur Specific [place] 1.022 (1.005-1.030) 06/06/25 06:38 Urine Protein Trace (Negative) A 06/06/25 06:38 Urine Glucose (UA) Negative (Normal) 06/06/25 06:38 Urine Ketones Trace (Negative) 06/06/25 06:38 Urine Blood Trace (Negative) A 06/06/25 06:38 Urine Nitrate Negative (Negative) 06/06/25 06:38 Urine Bilirubin Negative (Negative) 06/06/25 06:38 Urine Urobilinogen 0.2 mg/dL (Negative) 06/06/25 06:38 Ur Leukocyte Esterase Negative (Negative) 06/06/25 06:38 Urine RBC 0-2 /hpf (0-2) 06/06/25 06:38 Urine WBC 0-5 /hpf (0-5) 06/06/25 06:38 Ur Squamous Epith Cells 0-5 /hpf (0-5) 06/06/25 06:38 Amorphous Sediment Not Reportable 06/06/25 06:38 Urine Bacteria None seen /hpf (NONE) 06/06/25 06:38 Hyaline Casts 4.11 /lpf 06/06/25 06:38 Serum Ketones Negative (Negative) 06/06/25 05:37 All radiology interpretation(s) finalized by discharge EKG Data EKG 1: Interpretation: EKG time 05 read 05 shows atrial fibrillation with rapid ventricular rate. Rate is 140. [place] is normal. QTc is 329. No significant ST wave changes. Discharge Plan Discharge Patient Disposition: Admitted As Inpatient Admit Provider: Edwardo Conde Clinical Impression: Atrial fibrillation with RVR, Elevated lactic acid level, Hyponatremia, Dehydration Constipation Qualifiers: Constipation type: unspecified constipation type Qualified Code(s): K59.00 - Constipation, unspecified Leukocytosis Qualifiers: Leukocytosis type: unspecified Qualified Code(s): D72.829 - Elevated white blood cell count, unspecified Condition: Stable Coding Level of Care Code ED Compliance Professional for Chg Fwd Documented by User: Cathie Aguirre MD 06/06/25 17:58 HPI - Abdominal Pain 2 General: Chief Complaint: Abdominal Pain Stated Complaint: still constipated, pain weak Time Seen by Provider: 06/06/25 05:32 Related Data Home Medications ?Medication ?Instructions ?Recorded ?Confirmed lisinopril 20 mg tablet 20 mg PO DAILY 06/02/2505/25 polyethylene glycol 3350 17 17 g PO DAILY 06/06/25 gram/dose oral powder (Miralax) Previous Rx's ?Medication ?Instructions ?Recorded hydrocodone 10 mg-acetaminophen 1 tab PO Q6H PRN pain 30 days #90 06/02/25 325 mg tablet tabs Allergies Allergy/AdvReac Type Severity Reaction Status Date / Time No Known Allergies Allergy Unverified 06/04/25 10:10 PFSH ED 2 PFSH: Social History Smoking and tobacco/nicotine status: former use of tobacco/nicotine Physical Exam 2 Neuro: NEGRITA COMA SCALE: document GCS findings [place] coma scale total score: 15 Course 2 Vital Signs: Vital signs: Vital Signs Temperature 97.5 F L 06/06/25 21:00 Pulse Rate 84 06/07/25 00:26 Respiratory Rate 23 H 06/07/25 00:26 Blood Pressure 137/63 06/07/25 00:26 Pulse Oximetry 94 06/07/25 00:26 Oxygen Delivery Me thod Room Air 06/06/25 16:00 MDM - Abdominal Pain Medical Decision Making 80-year-old male patient with a history of recently diagnosed likely colon cancer. He complains of generalized weakness, fast heart rate, and constipation. His heart rate has been as high as 170 here. Irregular in atrial fibrillation no chest pain. No significant ST wave changes on EKG. Given a bolus of diltiazem, and started on a drip. Bolus seem to help with heart rate reduction to 100 from 160-170. Laboratories pending in this patient. Imaging is as well. He will be checked out to the oncoming physician at shift change. Patient care transitioned to [place] at shift change. Patient's reason for coming to the emergency room: Abdominal pain, constipation, trouble urinating, weakness Social determinants: Patient is retired. . I reviewed the patient's medical record. Patient has been seen in oncology clinic and by general surgery this month. Also was seen at the end of April here in the emergency room for constipation CT of the abdomen pelvis from earlier this month 1. Hepatic metastasis. Several sites in the liver with the largest measuring 1.8 cm. 2. Lymphadenopathy in the gastrohepatic ligament and celiac axis. Largest lymph node 1.5 cm. 3. Pancreas is abnormal. Pancreas is atrophic with a dilated pancreatic duct and extensive calcifications. The common bile duct at the pancreatic head is normal. These findings could all be seen with chronic pancreatitis or neoplasm. No identifiable pancreatic mass seen. 4. No adrenal mass. 5. Stomach is not distended. There is mild diffuse gastric wall thickening. There is also mild asymmetric thickening of the second portion of the duodenum. Consider upper endoscopy to evaluate the stomach for possible infiltrating gastric carcinoma. 6. No GI tract obstruction. Normal appendix. 7. Numerous sites of bony metastasis with expansile lesions and soft tissue enhancing components. The most concerning lesion involves the RIGHT ilium as there is a pathological fracture. The lesion extends through the entire ilium. 8. Additional metastatic sites include the RIGHT anterolateral sixth rib, body of the RIGHT scapula, anterior T11 vertebral body and the posterior medial LEFT rib. 9. Extensive metastatic sites in the RIGHT ilium and bilaterally in the ischium. Favor there are additional metastatic sites also. 10. No evidence for pulmonary metastasis or adenopathy. I reviewed the patient's current home meds OPHTHALMOLOGIST: No last 3 weeks patient has received several pain medication prescriptions. None prior to that this year Alternate historians: None Differential diagnosis for patient presenting with generalized weakness including but not limited to and based on the above HPI, review of systems and physical exam: Sepsis. Dehydration. Renal failure. Electrolyte abnormalities. Anemia. Congestive heart failure. Hypotension. Coronary syndrome. Hepatitis. Cirrhosis. Infections such as pneumonia, urinary tract infection, [place] illness, Cellulitis, Viral infections including influenza and Covid-19. Workup: labwork and lab/exam driven imaging ordered to evaluate, rule in and rule out above pathologies. Differential diagnosis including but not limited to and based on the above HPI, review of systems and physical exam: - patient with complaint of constipation: Small bowel obstruction. Gastroparesis. Constipation. Also evaluation for urinary retention, liver disease, renal failure. Orders placed to evaluate differential diagnosis based on the above differential, HPI and physical exam Lab Review: Laboratory results were reviewed and interpreted by myself the emergency room physician. Leukocytosis with a white count of 21,000. Lactic acid is elevated at 3.2. Initial troponin is slightly elevated at 40. No anemia. Troponin initially was elevated and decreased some but was not a significant delta. Urinalysis negative for infection. Sodium is a little low at 129. EKG: Time 6:51 AM. Rate 120. Atrial fibrillation with rapid ventricular response, No ST-T changes, no ectopy, This was reviewed and interpreted by myself the ER physician at 6:[address] of the chest abdomen pelvis: Metastatic disease but no obvious source of sepsis. This was reviewed and interpreted by myself the emergency room physician. I also reviewed the radiology report. Assessment of risk: Level of risk: Moderate risk patient newly diagnosed metastatic disease Hospitalization considerations: Patient is being admitted Reexamination: Patient heart rate has improved quite a bit to around 100. No altered mental status. No increased work of breathing. No oxygen requirements. Assessment and plan: Atrial fibrillation with rapid ventricular response Abdominal pain Dehydration Constipation Hyponatremia Leukocytosis ?Diltiazem and diltiazem drip: Some improvement. Rate is down to just above 100. ?Leukocytosis and elevated lactic acid but no specific source. He has not had any fever. He leukostasis may just be related to metastatic disease. Treated empirically for sepsis though -2 L normal saline bolus. 30 mL/kg ideal body weight -Broad-spectrum antibiotics were administered. Zyvox and meropenem -Sepsis quality measures. -Lactic acid with a reflex was ordered. -Blood cultures were ordered. ?I reevaluated the patient's volume status after sepsis fluids were given. Blood pressure stable. Heart rate is down -I discussed the patient with the hospitalist on-call who is admitting the patient. - Discussed findings and plan with patient. Answered any questions. - All laboratory values were reviewed and interpreted personally by myself, the ER physician - All imaging was reviewed and interpreted personally by myself, the ER physician. - Evaluation and treatment of this problem were appropriate in the emergency setting Critical Care: -I spent a total of 68 minutes of critical care time managing the patient, independent of any other practitioner. -The time involved in the performance of separately reportable procedures was not counted towards critical care time. Lab Data 06/06/25 05:37 06/06/25 11:30 Labs/Radiology: Radiology Impressions Chest X-Ray 06/06/25 05:54 IMPRESSION: No acute findings. KUB X-Ray 06/06/25 05:54 IMPRESSION: No acute findings. Chest/Abdomen/Pelvis CT 06/06/25 07:27 IMPRESSION: Metastatic disease probably central lymph nodes and bone. No finding to explain the patient's sepsis. IMPRESSION: 1. Extensive metastatic disease. Several metastases appear to have slightly progressed since the recent prior study. 2. No findings to explain sepsis. COMMENTS: Consistent with the [employer]'s Incidental Findings Committee white paper (J Am Quan Radiol 2018): Any incidental renal lesion less than 1 cm or classified as too small to characterize, or any incidental cystic renal lesion characterized as simple-appearing, is likely benign. No follow-up imaging is recommended for these lesions per consensus recommendations based on imaging criteria. Laboratory Results WBC 21.49 10^3/uL (3.29-11.43) H 06/06/25 05:37 RBC 4.45 10^6/uL (3.85-5.65) 06/06/25 05:37 Hgb 12.80 g/dL (11.27-16.99) 06/06/25 05:37 Hct 38.5 % (37-53) 06/06/25 05:37 MCV 86.5 fl (82-101) 06/06/25 05:37 MCH 28.8 pg (27-33) 06/06/25 05:37 MCHC 33.2 g/dL (30-55) 06/06/25 05:37 RDW 13.4 % (12.1-15.1) 06/06/25 05:37 Plt Count 277 10^3/cmm (157-399) 06/06/25 05:37 MPV 10.0 fL (7.4-10.4) 06/06/25 05:37 Neut % (Auto) 83.7 % 06/06/25 05:37 Lymph % (Auto) 7.1 % 06/06/25 05:37 Chaves % (Auto) 7.9 % 06/06/25 05:37 Eos % (Auto) 0.1 % 06/06/25 05:37 Baso % (Auto) 0.3 % 06/06/25 05:37 Neut # (Auto) 17.99 10^3/uL (1.8-7.7) H 06/06/25 05:37 Lymph # (Auto) 1.5 10^3/uL (0.8-4.8) 06/06/25 05:37 [place] # (Auto) 1.7 10^3/uL (0.2-0.9) H 06/06/25 05:37 Eos # (Auto) 0.0 10^3/uL (0.0-0.8) 06/06/25 05:37 Baso # (Auto) 0.1 10^3/uL (0.0-0.1) 06/06/25 05:37 Nucleated RBC % (auto) 0 % 06/06/25 05:37 Nucleated RBCs # 0.0 /100WBC 06/06/25 05:37 Sodium 129 mmol/L (136-145) L 06/06/25 05:37 Potassium 4.7 mmol/L (3.5-5.1) 06/06/25 05:37 Chloride 90 mmol/L (98-107) L 06/06/25 05:37 Carbon Dioxide 27 mmol/L (22-29) 06/06/25 05:37 Anion Gap 16.7 (5-19) 06/06/25 05:37 BUN 22 mg/dL (8-23) 06/06/25 05:37 Creatinine 1.2 mg/dL (0.7-1.2) 06/06/25 05:37 GFR Calculation Not Reportable 06/06/25 05:37 Glucose 137 mg/dL (65-115) H 06/06/25 05:37 Calculated Osmolality 273 mOsm/kg (285-295) L 06/06/25 05:37 Lactic Acid 3.2 mmol/L (0.5-2.2) H 06/06/25 05:37 Lactic Acid (Sepsis) 2.1 mmol/L (0.5-2.2) 06/06/25 08:26 Calcium 8.9 mg/dL (8.5-10.5) 06/06/25 05:37 Magnesium 2.7 mg/dL (1.7-2.3) H 06/06/25 05:37 Total Bilirubin 0.8 mg/dL (0.15-1.2) 06/06/25 05:37 AST 21 U/L (0-40) 06/06/25 05:37 ALT 21 U/L (0-41) 06/06/25 05:37 Alkaline Phosphatase 128 U/L (40-130) 06/06/25 05:37 Troponin T Baseline 40 ng/L (0-15) H 06/06/25 05:37 Troponin T 60 Minute 32.82 ng/L (0-15) H 06/06/25 06:27 Delta Troponin T -7.18 ABS# (0-10) L 06/06/25 06:27 C-Reactive Protein 227.3 mg/L (0.0-4.9) H 06/06/25 05:37 NT-Pro-B Natriuret Pep 2645 pg/mL (0-450) H 06/06/25 05:37 Total Protein 6.0 g/dL (6.6-8.7) L 06/06/25 05:37 Albumin 3.1 g/dL (3.5-5.2) L 06/06/25 05:37 Globulin 2.9 g/dL (1.3-4.6) 06/06/25 05:37 Lipase 78 U/L (13-60) H 06/06/25 05:37 TSH 4.44 uIU/mL (0.27-4.20) H 06/06/25 05:37 Urine Color [place] (Yellow) A 06/06/25 06:38 Urine Appearance Clear (CLEAR) 06/06/25 06:38 Urine pH 5.5 (5-7) 06/06/25 06:38 Ur Specific [place] 1.022 (1.005-1.030) 06/06/25 06:38 Urine Protein Trace (Negative) A 06/06/25 06:38 Urine Glucose (UA) Negative (Normal) 06/06/25 06:38 Urine Ketones Trace (Negative) 06/06/25 06:38 Urine Blood Trace (Negative) A 06/06/25 06:38 Urine Nitrate Negative (Negative) 06/06/25 06:38 Urine Bilirubin Negative (Negative) 06/06/25 06:38 Urine Urobilinogen 0.2 mg/dL (Negative) 06/06/25 06:38 Ur Leukocyte Esterase Negative (Negative) 06/06/25 06:38 Urine RBC 0-2 /hpf (0-2) 06/06/25 06:38 Urine WBC 0-5 /hpf (0-5) 06/06/25 06:38 Ur Squamous Epith Cells 0-5 /hpf (0-5) 06/06/25 06:38 Amorphous Sediment Not Reportable 06/06/25 06:38 Urine Bacteria None seen /hpf (NONE) 06/06/25 06:38 Hyaline Casts 4.11 /lpf 06/06/25 06:38 Serum Ketones Negative (Negative) 06/06/25 05:37 Discharge Plan Discharge Patient Disposition: Admitted As Inpatient Admit Provider: Edwardo Conde Clinical Impression: Atrial fibrillation with RVR, Elevated lactic acid level, Hyponatremia, Dehydration Constipation Qualifiers: Constipation type: unspecified constipation type Qualified Code(s): K59.00 - Constipation, unspecified Leukocytosis Qualifiers: Leukocytosis type: unspecified Qualified Code(s): D72.829 - Elevated white blood cell count, unspecified Condition: Stable Coding Level of Care Code ED Compliance Professional for Sarabjit Browne
--- NOTE | 2025-06-06 05:54 | XRR_ITS ---
PROCEDURE INFORMATION: Exam: XR Chest Exam date and time: 06/06/2025 6:05 AM Age: 80 years old Clinical indication: Other: General weakness/tachycardia; General weakness with tachycardia. ; Additional info: Weakness tachycardia TECHNIQUE: Imaging protocol: Radiologic exam of the chest. Views: 1 view. COMPARISON: CT chest abdpel w/*[id number] 05/28/2025 1:25 PM FINDINGS: Lungs: Unremarkable. No consolidation. Pleural spaces: Unremarkable. No pleural effusion. No pneumothorax. Heart/Mediastinum: Unremarkable. No cardiomegaly. Bones/joints: Unremarkable. XR/XR chest 1V portable [id number] IMPRESSION: No acute findings.
--- NOTE | 2025-06-06 05:54 | XRR_ITS ---
PROCEDURE INFORMATION: Exam: XR Abdomen Exam date and time: 06/06/2025 6:05 AM Age: 80 years old Clinical indication: C/O constipation TECHNIQUE: Imaging protocol: Radiologic exam of the abdomen. Views: Frontal supine view of the abdomen. 1 View. COMPARISON: CT chest abdpel w/*[id number] 05/28/2025 1:25 PM FINDINGS: Gastrointestinal tract: Normal. No bowel dilation. Bones/joints: Unremarkable. XR/XR KUB portable [id number] IMPRESSION: No acute findings.
[2025-06-06] MEDS: DILTIAZEM HCL/D5W 125 MG/125 ML BAG IV (05:56)
[2025-06-06 05:57] LABS: Hematocrit 38.5 % (37-53); Hemoglobin 12.80 g/dL (11.27-16.99); Mean Corpuscular HGB Conc 33.2 g/dL (30-55); Mean Corpuscular Hemoglobin 28.8 pg (27-33); Mean Corpuscular Volume 86.5 fl (82-101); Nucleated Red Blood Cells % 0 %; Platelet Count 277 10^3/cmm (157-399); Red Blood Count 4.45 10^6/uL (3.85-5.65); White Blood Count 21.49 10^3/uL (3.29-11.43)
[2025-06-06 05:58] LABS: Ketone (Acetest) Serum Negative (Negative)
[2025-06-06 06:13] LABS: Lactic Sepsis W/Reflex 3.2 mmol/L (0.5-2.2)
[2025-06-06 06:14] LABS: Reflex Lactate Order REFLEX LACTIC ORDERD
[2025-06-06 06:16] LABS: Troponin(5th) Baseline 40 ng/L (0-15)
[2025-06-06 06:23] LABS: Alanine Aminotransferase 21 U/L (0-41); Albumin Level 3.1 g/dL (3.5-5.2); Alkaline Phosphatase 128 U/L (40-130); Anion Gap 16.7 (5-19); Aspartate Amino Transferase 21 U/L (0-40); Blood Urea Nitrogen 22 mg/dL (8-23); Calcium 8.9 mg/dL (8.5-10.5); Carbon Dioxide 27 mmol/L (22-29); Chloride 90 mmol/L (98-107); Globulin 2.9 g/dL (1.3-4.6); Glucose 137 mg/dL (65-115); Lipase 78 U/L (13-60); Magnesium 2.7 mg/dL (1.7-2.3); NT Pro B Type Natriuretic Pept 2645 pg/mL (0-450); Osmolality Calculated 273 mOsm/kg (285-295); Potassium 4.7 mmol/L (3.5-5.1); Sodium 129 mmol/L (136-145); Thyroid Stimulating Hormone 4.44 uIU/mL (0.27-4.20); Total Protein 6.0 g/dL (6.6-8.7)
--- NOTE | 2025-06-06 06:51 | ECG_ITS ---
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 Measurements Intervals [place] Rate: 120 P: 0 SC: 0 QRS: 7 QRSD: 89 T: 52 QT: 290 QTc: 410 Interpretive Statements ATRIAL FIBRILLATION WITH RAPID VENTRICULAR RESPONSE ABNORMAL RHYTHM ECG Compared to ECG 06/06/2025 05:25:32 NO SIGNIFICANT CHANGE Electronically Signed On 06-06-2025 20:03:32 GARAGE ATTENDANT by Isaac Senior M.D. [email or web address]
[2025-06-06 07:16] LABS: Glucose Urine UA Negative (Normal); Nitrate Urine Negative (Negative); Specific Gravity, Urine 1.022 (1.005-1.030)
[2025-06-06] MEDS: ondansetron 2 mg/ML SDV 2 mL 4 MG IVP (07:16)
[2025-06-06] MEDS: HYDROmorphone 0.5 MG/0.5 ML INJ 1 MG IVP (07:16)
[2025-06-06 07:19] LABS: Add Urine Microscopic? YES
--- NOTE | 2025-06-06 07:27 | CTR_ITS ---
PROCEDURE INFORMATION: Exam: CT Chest With Contrast; Diagnostic Exam date and time: 06/06/2025 7:54 AM Age: 80 years old Clinical indication: Other: Sepsis TECHNIQUE: Imaging protocol: Diagnostic computed tomography of the chest with contrast. Radiation optimization: All CT scans at this facility use at least one of these dose optimization techniques: automated exposure control; mA and/or kV adjustment per patient size (includes targeted exams where dose is matched to clinical indication); or iterative reconstruction. Contrast material: OMNI 350; Contrast volume: 100 ml; Contrast route: INTRAVENOUS (IV); COMPARISON: CT chest abdpel w/*[id number] 05/28/2025 1:25 PM RADIATION DOSE METRICS: Total DLP (mGy-cm): 864.88 FINDINGS: Lungs: Mild hypoventilatory changes at the lung bases. Pleural spaces: Unremarkable. No pneumothorax. No pleural effusion. Heart: Unremarkable. No cardiomegaly. No pericardial effusion. Lymph nodes: Visible central lymph nodes are borderline, the largest is anterior to the right mainstem bronchus and measures 17 mm in short axis dimension. Mild left hilar adenopathy is present as well. Vasculature: Unremarkable. No aortic aneurysm. Bones/joints: Osseous metastasis with extraosseous components in the axial and appendicular skeleton, unchanged from before. This includes several ribs, vertebral bodies, and the right scapula. Soft tissues: Unremarkable. PROCEDURE INFORMATION: Exam: CT Abdomen And Pelvis With Contrast Exam date and time: 06/06/2025 7:54 AM Age: 80 years old Clinical indication: Other: Sepsis TECHNIQUE: Imaging protocol: Computed tomography of the abdomen and pelvis with contrast. Radiation optimization: All CT scans at this facility use at least one of these dose optimization techniques: automated exposure control; mA and/or kV adjustment per patient size (includes targeted exams where dose is matched to clinical indication); or iterative reconstruction. Contrast material: OMNI 350; Contrast volume: 100 ml; Contrast route: INTRAVENOUS (IV); COMPARISON: CT chest abdpel w/*[id number] 05/28/2025 1:25 PM RADIATION DOSE METRICS: Total DLP (mGy-cm): 864.88 FINDINGS: Liver: At least 2 hepatic masses, the largest in the subdiaphragmatic right lobe and measuring approximately 3.4 cm in size. This appears larger than before. Gallbladder and biliary ducts: Mildly distended gallbladder. Pancreas: Chronic calcific pancreatitis. Pancreas is atrophic and contains numerous coarse calcifications. Spleen: Normal. No splenomegaly. Adrenal glands: Normal. No mass. Kidneys and ureters: Punctate nonobstructing renal calculi. Left lower pole renal cyst. Stomach and bowel: Unremarkable. No obstruction. No mucosal thickening. Appendix: No evidence of appendicitis. Intraperitoneal space: Unremarkable. No free air. No significant fluid collection. Vasculature: Unremarkable. No abdominal aortic aneurysm. Lymph nodes: Para-aortic, retroperitoneal, and mesenteric adenopathy is present. Urinary bladder: Unremarkable as visualized. Reproductive: Unremarkable as visualized. Bones/joints: Osseous metastasis with extraosseous component arises from anterior right 6th rib. Scattered lytic metastasis, 1 in the mid right iliac bone with a large extraosseous component and an associated pathologic fracture.. This appears slightly larger than on 05/28 2025. Soft tissues: Unremarkable. CT/CT chest abdpel w/*[id number] IMPRESSION: Metastatic disease probably central lymph nodes and bone. No finding to explain the patient's sepsis. IMPRESSION: 1. Extensive metastatic disease. Several metastases appear to have slightly progressed since the recent prior study. 2. No findings to explain sepsis. COMMENTS: Consistent with the [employer]'s Incidental Findings Committee white paper (J Am Quan Radiol 2018): Any incidental renal lesion less than 1 cm or classified as too small to characterize, or any incidental cystic renal lesion characterized as simple-appearing, is likely benign. No follow-up imaging is recommended for these lesions per consensus recommendations based on imaging criteria.
[2025-06-06] MEDS: linezolid premix 600 MG/300 ML PREMIX 300 MG IV (07:40)
[2025-06-06] MEDS: iohexol 350 mg/mL 500 mL Btl (per mL) IV (07:57)
[2025-06-06 08:48] LABS: Lactic Acid level (Lactate) 2.1 mmol/L (0.5-2.2)
--- NOTE | 2025-06-06 09:14 | PM.HP ---
Providers/Chief Complaint Admitting Physician: Edwardo Conde Primary Care Provider: Ally Taylor MD Chief Complaint: still constipated, pain weak History of Present Illness Kennedy Yao is a 80 year old male w/ pmhx of HLD, HTN, and was recently found to have metastatic cancer in the process of staging w/ scheduled outpatient EGD, and colonsoscopy with Dr. Allen on 06/09/25. Patient presents to ED today with c/o increased heart rate, and generalized weakness. Associated signs and symptoms of fever about a week(103 ?F ), shortness of breath with exertion, hypotension, difficulty urinating, and constipation. He was found to have have cardiac rhythm of atrial fibrillation with RVR. Patient was then started on Cardizem drip and sent to cardiac stepdown unit. He denies headache, syncope, chest pain, N/V/D, and recent medication changes. Patient reports attempting to alleviate constipation with lactulose 10gm/15mL he received after emergency department visit on 05/22/25, in which he was being seen for ABD pain and constipation. He states it made him go too often at that time and began to use Dulcolax again but reports both fail to alleviate constipation as he still has to continue to strain for liquid bowel movements. Patient to be admitted to hospitalist services for further medical management and care. While in ED a CBC, CMP, Troponin series, TSH, Lipase, Lactic acid was collected, reviewed, and results as follows: WBC 21.49, Neut 17.99, [place] 1.7, Hgb 12.8, Hct 38.5, Plt 277. Na 129, Cholride 90, K 4.7, Mag 2.7, Osmo 273, glucose 137, Trop baseline 40, 2hr Trop 32.82, Delta Trop -7.18, BNP 2645. CRP 227.3, Albumin 3.1, Lipase 78, TSH 4.44, Lactic acid 3.2. A UA was obtained as well and negative for UTI. While in ED patient received the following medications: Meropenem 500 mg IVP, Linezolid 600 mg IV, 2L NS bolus, Cardizem 20mg IVP bolus, then placed on Cardizem drip, Dilaudid 1 mg IVP, Zofran 4 mg IVP. -05/28/24: Chest/Abd/Pelvis CT: 1. Hepatic metastasis. Several sites in the liver with the largest measuring 1.8 cm. 2. Lymphadenopathy in the gastrohepatic ligament and celiac axis. Largest lymph node 1.5 cm. 3. Pancreas is abnormal. Pancreas is atrophic with a dilated pancreatic duct and extensive calcifications. The common bile duct at the pancreatic head is normal. These findings could all be seen with chronic pancreatitis or neoplasm. No identifiable pancreatic mass seen. 4. No adrenal mass. 5. Stomach is not distended. There is mild diffuse gastric wall thickening. There is also mild asymmetric thickening of the second portion of the duodenum. Consider upper endoscopy to evaluate the stomach for possible infiltrating gastric carcinoma. 6. No GI tract obstruction. Normal appendix. 7. Numerous sites of bony metastasis with expansile lesions and soft tissue enhancing components. The most concerning lesion involves the RIGHT ilium as there is a pathological fracture. The lesion extends through the entire ilium. 8. Additional metastatic sites include the RIGHT anterolateral sixth rib, body of the RIGHT scapula, anterior T11 vertebral body and the posterior medial LEFT rib. 9. Extensive metastatic sites in the RIGHT ilium and bilaterally in the ischium. Favor there are additional metastatic sites also. 10. No evidence for pulmonary metastasis or adenopathy. Review of Systems Const: Reports: fever(s), change in appetite and fatigue; Denies: chills or body aches Eyes: Denies: change in vision or eye discomfort ENMT: Reports: dry mouth; Denies: throat pain, mouth pain or nasal congestion Card: Reports: irregular heart rhythm and dyspnea on exertion; Denies: chest pain, palpitations, edema, lightheadedness or syncope Resp: Reports: dyspnea; Denies: wheezing, stridor or chest congestion GI: Reports: abdominal pain and constipation; Denies: nausea, vomiting or diarrhea : Reports: difficulty urinating; Denies: urinary incontinence Skin/Breast: Denies: rash or erythema Neuro: Denies: headache(s), numbness in extremities or dizziness Medications/Allergies Home Medications ?Medication ?Instructions ?Recorded ?Confirmed ?Last Taken ?Type hydrocodone 10 mg-acetaminophen 1 tab PO Q6H PRN pain 30 days #90 06/02/25 06/06/25 06/05/25 Rx 325 mg tablet tabs lisinopril 20 mg tablet 20 mg PO DAILY 06/02/25 06/06/25 06/05/25 History polyethylene glycol 3350 17 17 g PO DAILY 06/06/25 06/06/25 06/05/25 History gram/dose oral powder (Miralax) Allergies Allergy/AdvReac Type Severity Reaction Status Date / Time No Known Allergies Allergy Unverified 06/04/25 10:10 PFSH Acute PFSH: Social History Smoking and tobacco/nicotine status: former use of tobacco/nicotine Vitals/I&O/Wt Last Vital Signs Temp 97.6 F 06/06/25 05:16 Pulse 103 H 06/06/25 08:49 Resp 19 H 06/06/25 08:49 BP 113/60 06/06/25 08:49 Pulse Ox 93 06/06/25 08:49 O2 Del Method Room Air 06/06/25 05:16 06/05/25 06/06/25 06/06/25 22:59 06:59 14:59 Intake Total 3.583 / 3.583 1316.125 / 1316.125 Balance 3.583 / 3.583 1316.125 / 1316.125 Weight last 48 hrs Weight 73.539 kg Physical Exam Narrative: General: A&Ox4, no apparent distress, resting in bed on room air. Denies chest pain. HEENT: Normo-cephalic, atraumatic, grossly unremarkable exam Cardio: A-fib RVR, normal S1-S2 w/o any murmurs, rubs, or gallops and JVD normal Respiratory: Clear to bilateral upper and lower lobes on auscultation w/o any wheezes, rhonchi GI: Constipation, abd soft, tender, non-distended, normo-active bowel sounds present. Neuro: Moves all extremities, no sensory deficits, Normal speech Behavior: Appropriate and cooperative Extremities: Adequate palpable pulses. No clubbing, cyanosis or edema, Full ROM Quick SOFA Score: Respiratory Rate: 18 Blood Pressure: 104/66 [place] Coma Scale: 15 qSOFA Score: 0 If qSOFA score 2 or greater, continue: Blood Pressure Mean: 78 Bilirubin (mg/dl): 0.8 Platelets (x10?/ml): 277 Creatinine (mg/dl): 1.2 Evaluation: Current stage of sepsis: ruled out/differential diagnosis (Likely A-fib RVR) Sepsis stage criteria used: Sepsis-3 Focused Exam: Vital signs: Temp Pulse Resp BP Pulse Ox O2 Del Method 06/06/25 09:45 Room Air 06/06/25 09:45 97.6 F 101 H 18 104/66 93 Room Air 06/06/25 09:32 94 115/82 98 06/06/25 08:49 103 H 19 H 113/60 93 06/06/25 08:24 121 H 20 H 110/60 92 06/06/25 07:17 104 H 18 114/60 94 06/06/25 06:40 113 H 133/77 91 06/06/25 06:14 124 H 133/77 93 06/06/25 05:57 112 H 133/77 93 06/06/25 05:16 97.6 F 129 H 16 133/77 97 Room Air Respiratory exam: no crakcles, no rales, no rhonchi, no wheezes and no stridor Cardiovascular exam: irregular rate (Afib RVR), no murmurs, no gallops and no rubs Peripheral pulse strength: 3+ Normal Peripheral pulse location: Radial Skin exam: pallor not present, not diaphoretic and no mottling Date exam was performed: 06/06/25 Time exam was performed: 11:44 Sepsis Screen No Definite Risk Today, 08:49 Respiratory Rate, (12 - 18) 18 breaths/min Today, 09:45 Blood Pressure 104/66 mmHg Today, 09:45 [place] Coma Scale Score 15 Today, 09:45 Quick SOFA Score 0 Today, 08:49 SOFA Score: [place] Coma Scale Score 15 Today, 09:45 Blood Pressure Mean 78 mmHg Today, 09:45 Total Bilirubin, (0.15-1.2) 0.8 mg/dL Today, 05:37 Platelet Count, (157-399) 277 10^3/cmm Today, 05:37 Creatinine, (0.7-1.2) 1.2 mg/dL Today, 05:37 Data 06/06/25 05:37 06/06/25 05:37 Other Labs: 06/06: Chest/abd/pelvis CT : reviewed and results as follows: Extensive metastatic disease. Several metastases appear to have slightly progressed since the recent prior study. No findings to explain sepsis. 06/06: KUB XR: reviewed and results as follows: No acute findings. 06/06: CXR: reviewed and results as follows: No acute findings 06/06: EKG 0535: Afib RVR, no significant ST changes, QRS 89, QTc 410, HR 120 06/06: EKG 0535: Afib RVR, no significant ST changes, QRS 78, QTc 380, HR 142 Micro: Microbiology 06/06/25 05:45 Blood Culture - Preliminary Blood SPECIMEN COLLECTED 06/06/25 05:44 Blood Culture - Preliminary Blood SPECIMEN COLLECTED A&P Assessment and plan 1. Atrial fibrillation with RVR: 2. Hyponatremia: 3. Dehydration: 4. Leukocytosis, unspecified type: 5. Elevated lactic acid level: 6. Constipation, unspecified constipation type: 7. Secondary malignancy of bone marrow: 8. Secondary malignancy of liver: Plan: New Onset Afib RVR ? Patient presents asymptomatic ? CHADS VASc score: 3 points, 4.6% risk of stroke/TIA/systemic embolism. Would benefit from anticoagulation although with planned EGD and colonoscopy for next week will hold off on anticoagulation. Patient to follow-up with PCP post scheduled procedures with Dr. Allen to be initiated on anticoagulation. ? 06/06: EKG 0535: Afib RVR, no significant ST changes, QRS 89, QTc 410, HR 120 ? 06/06: EKG 0535: Afib RVR, no significant ST changes, QRS 78, QTc 380, HR 142 ? Cardiac enzymes: Trop baseline 40, 2hr Trop 32.82, Delta Trop -7.18 ? Echo ordered, pending ? K 4.7, Mag 2.7, replace as indicated ? TSH 4.44 ? Anemia workup- negative. ? Continuous cardiac monitoring ? IV bolus of Cardizem, and IV drip initiated in ED, continue Elevated Lactic Acid level Leukocytosis ? CRP 227.3, Lactic acid 3.2 ? WBC 21.49, Neut 17.99 ? 06/06: Chest/abd/pelvis CT: Extensive metastatic disease. Several metastases appear to have slightly progressed since the recent prior study. No findings to explain sepsis. ? 06/06: KUB XR: No acute findings. ? 06/06: CXR:: No acute findings ? Blood cultures ordered, pending ? UA collected, negative. ? IV piperacillin-tazobactam 3.375gm IV q8hr ? Continue IVF of NS at 75 ml/hr Dehydration Constipation Hyponatremia, likely secondary ? Na 129, recheck Na level this afternoon. ? Received 2L NS bolus in ED ? Continue IVF NS @ 75ml/hr ? On home pain medication hydrocodone 10-325 PO q6hr- likely contributing to constipation ? Dulcolax 10 mg PO PRN, MiraLAX 17GM PO dly, Colace 100mg PO BID. ? Fall precautions ? Monitor CMP dly. HTN ? Patient presents with hypotension ? V/S q4h, monitor ? Hold home medication lisinopril 20 mg PO dly HLD ? Lipid panel ordered for a.m., pending ? Home medication atorvastatin recently discontinued to r/o possible GI upset. Patient states it helped for only 3 to 4 days then GI issues returned. Malignancy of liver and bone marrow ? See imaging as per above ? Follows oncologist, Dr. Jacobson outpatient ? Metastatic cancer in the process of staging w/ scheduled outpatient EGD, and colonsoscopy with Dr. Allen on 06/09/25 TSH minimally elevated ? TSH 4.44 ? Patient to follow-up with PCP outpatient CODE STATUS: AND VTE prophylaxis: SCDs, Patient would benefit from anticoagulation although with planned EGD and colonoscopy for 06/09/25- will hold off on anticoagulation. Patient to follow-up with PCP post scheduled procedures with Dr. Allen. PDMP PDMP Reviewed: Not Reviewed Attestations Medical Necessity Statement*: Admitted under inpatient status. Given complexity of patient's presentation, new onset Afib RVR, co-morbid conditions, and required intensity of treatment, a hospitalization exceeding two midnights is anticipated. and High Time for a total of 77 minutes, includes reviewing past or interval history, examining/interviewing patient, placing orders, counseling patient/family/other support, updating patient/family/other support, discussing plan of care with staff, communicating with other healthcare providers, documenting encounter and coordinating care Diagnoses Atrial fibrillation with RVR I48.91 Hyponatremia E87.1 Dehydration E86.0 Leukocytosis, unspecified type D72.829 Leukocytosis type: unspecified Elevated lactic acid level R79.89 Constipation, unspecified constipation type K59.00 Constipation type: unspecified constipation type Secondary malignancy of bone marrow C79.52 Secondary malignancy of liver C78.7
--- NOTE | 2025-06-06 09:43 | PC.NURSE ---
Patient transferred from ED to CSU via a bed at 0945. Patient was able to walk from the ED bed to the CSU bed. He has CoAxia drip currently running.
--- NOTE | 2025-06-06 11:11 | USCV_ITS ---
Estevandiana Kennedy Age: 80 Gender: M : 1945 Exam Date: 06/06/2025 15:19 Ordering Phys: Prisca Boston NP Technologist: Nelson Russell Exam Location: [facility] [place] Indication: New onset afib rvr BP: 98 / 58 HR: 90 Rhythm: Atrial fibrillation Technical Quality: Adequate MEASUREMENTS (Male / Female) Normal Values 2D ECHO LV Diastolic Diameter PLAX 4.3 cm 4.2 - 5.9 / 3.9 - 5.3 cm IVS Diastolic Thickness 0.9 cm 0.6 - 1.0 / 0.6 - 0.9 cm IVS Systolic Thickness 1.0 cm LVPW Diastolic Thickness 0.7 cm 0.6 - 1.0 / 0.6 - 0.9 cm LVPW Systolic Thickness 1.6 cm LVOT Diameter 2.0 cm LV Ejection Fraction 2D Teich 67.3 % LV Ejection Fraction MOD 4C 65.1 % LV Ejection Fraction MOD 2C 60.0 % LV Ejection Fraction 2C AL 60.5 % RA Systolic Volume 4C AL 36.3 ml RA Systolic Volume 4C MOD 35.3 ml LA Sys Volume AL 90.0 cm cubed LA Sys Volume Index AL 46.7 cm cubed/m squared Aorta at Sinotubular Diameter 2.5 cm M-MODE LA Ao Ratio MM 1.8 AV Cusp Separation MM 1.7 cm DOPPLER AV Peak Velocity 118.0 cm/s LVOT Peak Velocity 75.0 cm/s AV Area Cont Eq vti 2.3 cm squared AV Area Cont Eq pk 2.0 cm squared MV Peak Velocity 103.0 cm/s MV Area PHT 5.7 cm squared Mitral E to A Ratio 101.0 PV Peak Velocity 170.7 cm/s RV Ejection Time 0.2 s FINDINGS Left Ventricle Normal left ventricular size, systolic function and wall thickness with no regional wall motion abnormality. Left ventricular ejection fraction is 60%. Indeterminate diastolic function due to atrial fibrillation Right Ventricle Normal right ventricular size and systolic function. RVSP could not be calculated due to incomplete tricuspid regurgitation velocity profile. Right Atrium Normal right atrial size. Left Atrium Moderately increased left atrial size. IA Septum Normal appearance of the interatrial septum. Mitral Valve Normal mitral valve structure. Mild mitral valve regurgitation. Aortic Valve Normal aortic valve structure. No aortic valve stenosis or regurgitation. Tricuspid Valve Normal tricuspid valve structure. No tricuspid valve stenosis or regurgitation. Normal pulmonary pressure. Pulmonic Valve Normal pulmonic valve structure. No pulmonic valve stenosis or regurgitation. Pericardium No pericardial effusion. Aorta Normal diameter of the aortic root and ascending thoracic aorta. IVC Inferior vena cava not visualized. CONCLUSIONS Normal left ventricular size, systolic function and wall thickness with ejection fraction of 60%. Normal right ventricular size and systolic function. Mild mitral valve regurgitation Moderate left atrial enlargement Isaac Senior MD, FACC (Electronically Signed) Final Date: 06 June 2025 19:07 S
--- NOTE | 2025-06-06 11:57 | ECG_ITS ---
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 Measurements Intervals Shanks Rate: 82 P: 0 HI: 0 QRS: 28 QRSD: 79 T: 55 QT: 346 QTc: 404 Interpretive Statements ATRIAL FIBRILLATION NONSPECIFIC T WAVE ABNORMALITY ABNORMAL RHYTHM ECG Compared to ECG 06/06/2025 06:51:46 NO SIGNIFICANT CHANGE Electronically Signed On 06-06-2025 20:01:43 RECEIVING CHECKER by Isaac Senior M.D. [email or web address]
[2025-06-06 12:02] LABS: Troponin 5 6HR 24.92 ng/L (0-15)
[2025-06-06 12:25] LABS: Sodium 125 mmol/L (136-145)
--- NOTE | 2025-06-06 15:59 | PC.NURSE ---
Provider okay'd to start cardizem 30mg PO once now.
[2025-06-06] MEDS: piperacillin-tazobactam 3.375 GM in sodium chloride 0.9% (plus) 50 ML IV (16:41)
[2025-06-07] MEDS: piperacillin-tazobactam 3.375 GM in sodium chloride 0.9% (plus) 50 ML IV ×3 (00:23→16:25)
[2025-06-07 00:26] VITALS: BP 137/63; PULSE 84; RESP 23; O2SAT 94
[2025-06-07 03:03] LABS: Hematocrit 34.6 % (37-53); Hemoglobin 11.40 g/dL (11.27-16.99); Mean Corpuscular HGB Conc 32.9 g/dL (30-55); Mean Corpuscular Hemoglobin 28.6 pg (27-33); Mean Corpuscular Volume 86.7 fl (82-101); Nucleated Red Blood Cells % 0 %; Platelet Count 213 10^3/cmm (157-399); Red Blood Count 3.99 10^6/uL (3.85-5.65); White Blood Count 18.73 10^3/uL (3.29-11.43)
[2025-06-07 03:20] LABS: Cholesterol 65 mg/dL (0-200); HDL Cholesterol 12 mg/dL (60-100); Triglycerides 169 mg/dL (0-150)
[2025-06-07 03:21] LABS: Alanine Aminotransferase 15 U/L (0-41); Albumin Level 2.4 g/dL (3.5-5.2); Alkaline Phosphatase 165 U/L (40-130); Anion Gap 16.6 (5-19); Aspartate Amino Transferase 18 U/L (0-40); Blood Urea Nitrogen 21 mg/dL (8-23); Calcium 8.0 mg/dL (8.5-10.5); Carbon Dioxide 24 mmol/L (22-29); Chloride 91 mmol/L (98-107); Globulin 2.2 g/dL (1.3-4.6); Glucose 113 mg/dL (65-115); Magnesium 2.4 mg/dL (1.7-2.3); Osmolality Calculated 268 mOsm/kg (285-295); Potassium 4.6 mmol/L (3.5-5.1); Sodium 127 mmol/L (136-145); Total Protein 4.6 g/dL (6.6-8.7)
[2025-06-07 04:00] VITALS: BP 147/64; PULSE 85; RESP 15; TEMP 36.8; O2SAT 93
[2025-06-07] MEDS: polyethylene glycol 3350 Pkt 17 gm PO (05:25)
[2025-06-07 06:00] VITALS: BMI 24.9
[2025-06-07 07:50] VITALS: BP 134/76; PULSE 78; RESP 22; TEMP 36.8; O2SAT 94
--- NOTE | 2025-06-07 08:16 | PM.PN ---
Subjective Subjective: Kennedy Yao is a 80 year old male w/ pmhx of HLD, HTN, and was recently found to have metastatic cancer in the process of staging w/ scheduled outpatient EGD, and colonsoscopy with Dr. Allen on 06/09/25. Patient presents to ED today with c/o increased heart rate, and generalized weakness This morning, patient states he feels improved Vitals/I&O/Wt Last Vital Signs Temp 98.2 F 06/07/25 07:50 Pulse 78 06/07/25 07:50 Resp 22 H 06/07/25 07:50 BP 134/76 06/07/25 07:50 Pulse Ox 94 06/07/25 07:50 O2 Del Method Room Air 06/07/25 04:00 06/06/25 06/07/25 06/07/25 22:59 06:59 14:59 Intake Total 301.875 / 2800.167 290 / 3090.167 Output Total 250 / 550 250 / 800 Balance 51.875 / 2250.167 40 / 2290.167 Weight last 48 hrs Weight 76.6 kg Weight 76.6 kg Weight 76 kg Weight 73.539 kg Physical Exam Narrative: Alert and oriented, no acute distress Const: COMMON NORMALS: alert ORIENTATION/CONSCIOUSNESS: Yes oriented to person, Yes oriented to place and Yes oriented to time HENMT: COMMON NORMALS: normocephalic and atraumatic HEAD & SCALP: normocephalic and atraumatic Neck/C-Spine: COMMON NORMALS: no meningeal signs GENERAL: Yes trachea midline and No JVD Resp: AUSCULTATION: diminished lung sounds Cardio: OTHER: irregularly, irregular GI: OTHER: soft, mild distension and tenderness Extremity: OTHER: no edema Neuro: SENSORIUM/ORIENTATION: Yes alert, Yes oriented to person, Yes oriented to place and Yes oriented to time MENINGEAL SIGNS: Yes no meningeal signs SPEECH: speech normal MOTOR EXAM: 5/5 motor strength present throughout Data 06/07/25 02:18 06/07/25 02:18 Micro: Microbiology 06/06/25 05:45 Blood Culture - Preliminary Blood NEGATIVE TO DATE 06/06/25 05:44 Blood Culture - Preliminary Blood NEGATIVE TO DATE CT Abd/Pel: Radiologist's impression: 05/28/24: Chest/Abd/Pelvis CT: 1. Hepatic metastasis. Several sites in the liver with the largest measuring 1.8 cm. 2. Lymphadenopathy in the gastrohepatic ligament and celiac axis. Largest lymph node 1.5 cm. 3. Pancreas is abnormal. Pancreas is atrophic with a dilated pancreatic duct and extensive calcifications. The common bile duct at the pancreatic head is normal. These findings could all be seen with chronic pancreatitis or neoplasm. No identifiable pancreatic mass seen. 4. No adrenal mass. 5. Stomach is not distended. There is mild diffuse gastric wall thickening. There is also mild asymmetric thickening of the second portion of the duodenum. Consider upper endoscopy to evaluate the stomach for possible infiltrating gastric carcinoma. 6. No GI tract obstruction. Normal appendix. 7. Numerous sites of bony metastasis with expansile lesions and soft tissue enhancing components. The most concerning lesion involves the RIGHT ilium as there is a pathological fracture. The lesion extends through the entire ilium. 8. Additional metastatic sites include the RIGHT anterolateral sixth rib, body of the RIGHT scapula, anterior T11 vertebral body and the posterior medial LEFT rib. 9. Extensive metastatic sites in the RIGHT ilium and bilaterally in the ischium. Favor there are additional metastatic sites also. 10. No evidence for pulmonary metastasis or adenopathy. 06/06: KUB XR: reviewed and results as follows: No acute findings. 06/06: CXR: reviewed and results as follows: No acute findings EKG 1: Physician Coding Specialist Interpretation: 06/06: EKG 0535: Afib RVR, no significant ST changes, QRS 89, QTc 410, HR 120 A&P Assessment and plan 1. Atrial fibrillation with RVR: Patient asymptomatic on presentation, noted to be in a fib RVR. Patient started on cardizem infusion after bolus given CHADS VASc score: 3 points, 4.6% risk of stroke/TIA/systemic embolism. Would benefit from anticoagulation although with planned EGD and colonoscopy for next week will hold off on anticoagulation. Patient to follow-up with PCP post scheduled procedures with Dr. Allen to be initiated on anticoagulation. Cardiac enzymes: Trop baseline 40, 2hr Trop 32.82, Delta Trop -7.18 ? Echo obtained- EF 60 percent Continue to monitor Consult cardiology- Dr Senior informed 2. Hyponatremia: Serum sodium 125 on arrival, 127 this AM Received 2L NS bolus in ED ? Continue IVF NS @ 75ml/hr Hyponatremia may be related to malignancy. Workup with urine and serum osmolality and urine sodium Monitor closely 3. Dehydration: Received fluids, improved 4. Leukocytosis, unspecified type: WBC 21.49 on arrival. Has declined to 18.73 this AM CRP 227.3, Lactic acid 3.2 06/06: Chest/abd/pelvis CT: Extensive metastatic disease. Several metastases appear to have slightly progressed since the recent prior study. No infectious etiology 06/06- kub AND cxr- no acute findings UA negative Blood cultures obtained- follow ? IV piperacillin-tazobactam 3.375gm IV q8hr, continue 5. Constipation, unspecified constipation type: Bowel regimen for constipation 6. Secondary malignancy of liver: See imaging as per above ? Follows oncologist, Dr. Jacobson outpatient ? Metastatic cancer in the process of staging w/ scheduled outpatient EGD, and colonsoscopy with Dr. Allen on 06/09/25 7. Secondary malignancy of bone marrow: 8. HTN (hypertension): Patient presents with hypotension ? V/S q4h, monitor ? Hold home medication lisinopril 20 mg PO dly Plan: TSH minimally elevated ? TSH 4.44 ? Patient to follow-up with PCP outpatient CODE STATUS: AND VTE prophylaxis: SCDs, Patient would benefit from anticoagulation although with planned EGD and colonoscopy for 06/09/25- will hold off on anticoagulation. Patient to follow-up with PCP post scheduled procedures with Dr. Allen. PDMP PDMP Reviewed: Not Reviewed Attestations Medical Necessity Statement*: Admitted under inpatient status. Given complexity of patient's presentation, new onset Afib RVR, co-morbid conditions, and required intensity of treatment, a hospitalization exceeding two midnights is anticipated. Coding Level of Care Code 54612 Diagnoses Atrial fibrillation with RVR I48.91 Hyponatremia E87.1 Dehydration E86.0 Leukocytosis, unspecified type D72.829 Leukocytosis type: unspecified Constipation, unspecified constipation type K59.00 Constipation type: unspecified constipation type Secondary malignancy of liver C78.7 Secondary malignancy of bone marrow C79.52 HTN (hypertension) I10
[2025-06-07 11:43] VITALS: BP 156/82; PULSE 81; RESP 19; O2SAT 95
--- NOTE | 2025-06-07 14:57 | PM.CONSULT ---
Providers/Reason For Consult Consulting Physician/Specialty*: Isaac Senior MD Reason for Consult*: Atrial fibrillation with rapid ventricular response Requesting Physician: Sylvia Yates MD Attending Physician: Sylvia Yates MD Primary Care Provider: Ally Taylor MD History of Present Illness History of Present Illness Kennedy Yao is a 80 year old male with a h/o HTN and newly diagnosed metastatic cancer to the liver and bone with unknown primary, possibly GI who presented to the ER with constipation, diarrhea and found to be in new afib with RVR. Patient reports some PORRAS as an outpatient. Patient had 3 separate EKGs on 06/06/2025?all showed atrial fibrillation with normal intervals. The first 2 EKG showed rapid ventricular response with heart rates of 142 and subsequently 120 bpm. The last EKG showed controlled ventricular response of 82 bpm. Telemetry today revealed normal sinus rhythm with heart rates in the 80s. Echo 06/06/25: Normal left ventricular size, systolic function and wall thickness with ejection fraction of 60%. Normal right ventricular size and systolic function. Mild mitral valve regurgitation Moderate left atrial enlargement Medications/Allergies Home Medications ?Medication ?Instructions ?Recorded ?Confirmed ?Last Taken ?Type hydrocodone 10 mg-acetaminophen 1 tab PO Q6H PRN pain 30 days #90 06/02/25 06/06/25 06/05/25 Rx 325 mg tablet tabs lisinopril 20 mg tablet 20 mg PO DAILY 06/02/25 06/06/25 06/05/25 History polyethylene glycol 3350 17 17 g PO DAILY 06/06/25 06/06/25 06/05/25 History gram/dose oral powder (Miralax) Allergies Allergy/AdvReac Type Severity Reaction Status Date / Time No Known Allergies Allergy Unverified 06/04/25 10:10 Current Medications Generic Name Dose Route Start Last Admin Trade Name Freq PRN Reason Stop Dose Admin Acetaminophen 650 mg 06/06/25 11:05 06/07/25 02:29 Acetaminophen 325 Mg Tablet PO 650 mg Q6H PRN Administration Mild/Mod Pain Or Temp >/= 101 Diltiazem HCl 30 mg 06/06/25 21:00 06/07/25 13:10 Diltiazem 30 Mg Tablet PO 30 mg TID GITA Administration Docusate Sodium 100 mg 06/06/25 17:00 06/07/25 05:25 Docusate Sodium 100 Mg Capsule PO 100 mg BID GITA Administration DILTIAZEM HCL/D5W 125 mg in 125 mls @ 0 mls/hr 06/06/25 05:45 06/06/25 18:30 Cardizem IV 0 mg/hr .Q0M GITA 0 mls/hr Protocol Titration Per Protocol Piperacillin Sod/Tazobactam 50 mls @ 12.5 mls/hr 06/06/25 16:00 06/07/25 12:27 Sod 3.375 gm/ Sodium Chloride IV Infused Q8H GITA Infusion Protocol Polyethylene Glycol 17 gm 06/07/25 05:00 06/07/25 05:25 Polyethylene Glycol 3350 Pkt 17 Gm PO 17 gm DAILY GITA Administration PFSH Acute PFSH: Social History Smoking and tobacco/nicotine status: former use of tobacco/nicotine Vitals/I&O/Wt Last Vital Signs Temp 98.2 F 06/07/25 07:50 Pulse 81 06/07/25 11:43 Resp 19 H 06/07/25 11:43 BP 156/82 06/07/25 11:43 Pulse Ox 95 06/07/25 11:43 O2 Del Method Room Air 06/07/25 04:00 06/06/25 06/07/25 06/07/25 22:59 06:59 14:59 Intake Total 301.875 / 2800.167 290 / 3090.167 290 / 290 Output Total 250 / 550 250 / 800 150 / 150 Balance 51.875 / 2250.167 40 / 2290.167 140 / 140 Weight last 48 hrs Weight 168 lb 13.985 oz Weight 168 lb 13.985 oz Weight 167 lb 8.821 oz Weight 162 lb 2 oz Physical Exam Narrative: General: In no acute distress Neck: No jugular venous distention or carotid bruits Heart: Normal S1 and S2 with a regular rate and rhythm, no cardiac murmurs Lungs: Normal respiratory effort with no use of intercostal muscles, clear lungs sounds to auscultation Extremities: No lower extremity edema Neuro: Alert and oriented x 3 Data 06/07/25 02:18 06/07/25 02:18 Micro: Microbiology 06/06/25 05:45 Blood Culture - Preliminary Blood NEGATIVE TO DATE 06/06/25 05:44 Blood Culture - Preliminary Blood NEGATIVE TO DATE A&P Assessment and plan 1. Atrial fibrillation with RVR: 2. Hyponatremia: 3. HTN (hypertension): Plan: - new afib with rvr on admission possibly triggered by hyponatremia. Spontaneously converted to NSR after IV Cardizem. Due to some PORRAS as an outpatient, I cannot rule out underlying ischemia. Lexiscan nuclear stress test in am. - correct hyponatremia with NS IVF - echo with normal LV systolic function - elevated ntprobnp due to afib with rvr on admission. Repeat in am - CHADS VASC2 score is 3. Agree with holding anticoagulation until after his EGD and colonoscopy early this week. Then would use Eliquis 5mg po bid - can change dilt 30mg tid to dilt 24 hours release 120mg once daily PDMP PDMP Reviewed: Not Reviewed Coding Level of Care Code Acute Code for [facility] Fwd Diagnoses Atrial fibrillation with RVR I48.91 Hyponatremia E87.1 HTN (hypertension) I10
--- NOTE | 2025-06-07 15:20 | ECG_ITS ---
[facility] Test Date: 2025-06-08 Pat Name: Kennedy Yao Department: Room: 112 Gender: Male [employer]: : 1945 Requested By: Isaac Senior Order Number: [id number] Audrey MD: TEA FERRARA Interpretive Statements Lung unchanged pre/post procedure; Intraprocedure shortess of breath; Symptoms resoled by discharge NOTE: Please note that this is the electrocardiogram portion of the Lexiscan/Sestamibi stress test. The perfusion scan will be documented separately. DATA: Baseline heart rate was 105 beats per minute. Baseline blood pressure was 128/71 millimeters of mercury. Target heart rate was 138. Maximum heart rate achieved was 131. which was 94 % of the predicted target heart rate. Maximum blood pressure was 154/81 millimeters of mercury. The reason for ending the test was completion of the protocol. The patient did not experience any symptoms. ELECTROCARDIOGRAM: BASELINE: Sinus rhythm. Normal axis. Otherwise, no ST-T changes suggestive of ischemia noted. No arrhythmia noted. EXERCISE: After Lexiscan injection, no ST-T changes suggestive of ischemic noted. No arrhythmia noted. CONCLUSION: Please note due to baseline abnormality of the EKG specificity and sensitivity of the EKG portion of LexiScan MIBI stress test will be low 1. EKG not suggestive of ischemia 2. Lexiscan injection unremarkable. 3. Perfusion scan will be documented separately. Electronically Signed On 06-08-2025 12:37:39 VEHICLE REFINISHER by TEA FERRARA [email or web address]
[2025-06-07 16:00] VITALS: BP 186/88; PULSE 100; RESP 25; O2SAT 96
[2025-06-07 20:00] VITALS: BP 153/82; PULSE 96; RESP 20; TEMP 36.5
[2025-06-08] VITALS (11 sets, daily range): BP systolic 109–150; BP diastolic 57–94; PULSE 71–142; RESP 12–27; TEMP 36.3–36.7; O2SAT 91–93
[2025-06-08] MEDS: oxyCODONE-APAP 5-325 mg Tablet 1 TAB PO ×2 (00:29→17:45)
[2025-06-08] MEDS: piperacillin-tazobactam 3.375 GM in sodium chloride 0.9% (plus) 50 ML IV ×3 (00:30→16:17)
[2025-06-08 03:41] LABS: Hematocrit 35.2 % (37-53); Hemoglobin 12.00 g/dL (11.27-16.99); Mean Corpuscular HGB Conc 34.1 g/dL (30-55); Mean Corpuscular Hemoglobin 29.1 pg (27-33); Mean Corpuscular Volume 85.2 fl (82-101); Nucleated Red Blood Cells % 0 %; Platelet Count 223 10^3/cmm (157-399); Red Blood Count 4.13 10^6/uL (3.85-5.65); White Blood Count 24.11 10^3/uL (3.29-11.43)
[2025-06-08] MEDS: dilTIAZem ER (24HR) 120 mg Capsule PO (04:24)
[2025-06-08] MEDS: polyethylene glycol 3350 Pkt 17 gm PO (04:25)
[2025-06-08 04:30] LABS: NT Pro B Type Natriuretic Pept 2183 pg/mL (0-450)
[2025-06-08 04:31] LABS: Alanine Aminotransferase 16 U/L (0-41); Albumin Level 2.4 g/dL (3.5-5.2); Alkaline Phosphatase 150 U/L (40-130); Anion Gap 19.0 (5-19); Aspartate Amino Transferase 21 U/L (0-40); Blood Urea Nitrogen 21 mg/dL (8-23); Calcium 8.0 mg/dL (8.5-10.5); Carbon Dioxide 22 mmol/L (22-29); Chloride 93 mmol/L (98-107); Globulin 2.2 g/dL (1.3-4.6); Glucose 116 mg/dL (65-115); Magnesium 2.3 mg/dL (1.7-2.3); Osmolality Calculated 272 mOsm/kg (285-295); Potassium 5.0 mmol/L (3.5-5.1); Sodium 129 mmol/L (136-145); Total Protein 4.6 g/dL (6.6-8.7)
--- NOTE | 2025-06-08 07:12 | PC.NURSE ---
2239- Patient complaining of abdominal soreness and stating 'm constipated. Its in the colon not the rectum. Patient is requesting an enema at this time. Dr. Hendrix notified and received orders to give oxy 5 mg PRN Q4hrs. Patient given PRN dulcolax and oxy.
--- NOTE | 2025-06-08 08:44 | PC.CHAP ---
Pastoral Care Encounter/Spiritual Assessment Type of Contact [] Declined occupational health and safety manager visit [] Patient/Family/Request visit [] Outpatient visit [] Follow-up visit [] Physician referral [] Code/Alert [x] Routine visit [] Staff referral [] Actively dying [] Patient sleeping [] Family support [] [x] Out of room [] Palliative care [] [] Receiving care in room [] Pre-surgical visit [] Trauma [] Long length of stay [] ICU visit [] Other: Relational/Emotional Strength [] Patient feels connected with others/family/visitors/staff [] Distress [] Loneliness/isolation [] Abandonment Spirituality of Patient [] Person of Yuli [] Attends Baptism of their Yuli [] Believes in Prayer [] Reads Bible or Sabianism materials [] There are Spiritual issues to be addressed Analyst Competitive Intelligence Interventions [] Prayer [] Active listening [] Non-anxious presence [] Spiritual/emotional support [] Crisis/trauma care [] Spiritual counseling [] Bereavement support [] Provided bereavement packet [] Provided Bible/devotional materials [] Provided toy/stuffed animal, coloring book to patient or family member [] Provided Communion [] Anointing/[place] [] Salvation [] Completed spiritual assessment [] Other: Impact on Illness or Injury [] Angry [] Fearful [] Anxious [] Often cries [] Exhaustion [] Unable to work [] Unable to attend taoism [] Unable to walk/stand [] Unable to read [] Unable to drive [] Unable to eat/drink [] Unable to sleep [] Unable to be with family [] Patient intubated [] Other: Summary Time spent with patient
--- NOTE | 2025-06-08 10:49 | ECG_ITS ---
[facility] Test Date: 2025-06-08 Pat Name: Kennedy Yao Department: Room: 112 Gender: Male [employer]or [employer] D[employer]: : 1945 Requested By: Krysta Vargas Order Number: [id number] Audrey MD: Jenifer Wooten M.D. Measurements Intervals [place] Rate: 100 P: 36 ND: 158 QRS: -3 QRSD: 75 T: 42 QT: 305 QTc: 395 Interpretive Statements SINUS TACHYCARDIA SEPTAL MYOCARDIAL INFARCTION , PROBABLY OLD [40+ ms Q WAVE IN V1/V2] Compared to ECG 06/06/2025 11:57:17 Myocardial infarct finding now present Atrial fibrillation no longer present T-wave abnormality no longer present Electronically Signed On 06-09-2025 21:54:55 BUTTON BRADDER by Jenifer Wooten M.D. [id number]
--- NOTE | 2025-06-08 11:06 | PC.SOCIAL ---
IMM Updated Updated pt on IMM. No questions voiced. Provided pt a copy. Initialed, dated, & timed a copy & placed in chart.
--- NOTE | 2025-06-08 13:00 | P.PN_ITS ---
<Statement entered by Isaac Senior MD - 06/08/25 17:27> Patient was evaluated and cared for in conjunction with an advanced practice practitioner. I personally saw the patient and reviewed the chart and all pertinent data. I discussed the patient in detail with the advanced practice practitioner. Please see their note for complete assessment and agreed upon plan of care for the patient. Since afib rate hard to control and going in and out of afib with RVR, will start antiarrythmia to control rhythm Start sotalol 80mg x 1 tonight hold diltiazem increase sotalol to 120mg bid starting tomorrow EKG 2 hours after each sotalol dose, hold sotalol if QTc > 500msec. Of note, if patient in afib computer often inaccurate in measuring the QTc EGD and colonoscopy cancelled by Gen surgery For now, to prevent stroke, start lovenox 1 mg/kg sc bid Dr. Solorzano to take over care in am Subjective 2 Subjective: Patient doing well this morning with no complaints. He just had a stress test. He was seen this morning and going in and out of A-fib with RVR and sinus tach with PACs. EKG was taken that showed sinus tachycardia. Vitals/I&O/Wt Last Vital Signs Temp 97.4 F L 06/08/25 04:00 Pulse 88 06/08/25 11:34 Resp 17 06/08/25 11:34 BP 119/80 06/08/25 11:34 Pulse Ox 93 06/08/25 11:34 O2 Del Method Room Air 06/08/25 04:00 06/07/25 06/08/25 06/08/25 22:59 06:59 14:59 Intake Total 50 / 340 49.375 / 389.375 0 / 0 Output Total 350 / 500 25 / 525 Balance -300 / -160 24.375 / -135.625 0 / 0 Weight last 48 hrs Weight 169 lb 1.513 oz Weight 169 lb 1.513 oz Weight 168 lb 13.985 oz Weight 168 lb 13.985 oz Physical Exam 2 Narrative: General: No apparent distress HENMT: normoceophalic Muskuloskeletal: Full ROM Respiratory: Normal respiratory effort, clear to auscultation bilaterally throughout all lung malhotra, no use of accessory muscles Cardio: No JVD, irregularly irregular rate and rhythm, S1 S2 normal, no murmurs, peripheral pulses 2+ radial palpated bilaterally GI: Normal to inspection, nondistended Extremities: Full ROM, normal, normal capillary refill, no cyanosis or edema Neuro: Alert and oriented x4, no focal motor deficits Psych: Affect normal, denies suicidal ideation, mental status grossly normal Skin: No rashes or lesions noted, no wounds Data 06/08/25 02:50 06/08/25 02:50 A&P Assessment and plan 1. Atrial fibrillation with RVR: 2. Hyponatremia: 3. Primary hypertension: Plan: Patient was given extra IR Cardizem 30 mg on top of the 120 ER they were given early this AM. Rates initially improved but patient went back into afib rvr. discussed with Dr. Senior recommended hold Cardizem for tonight. sotolol 80 mg now. reasses in the am. Stress test showed medium sized area of fixed perfusion defect in the basal to distal inferior septal wall on both rest and stress images suggestive of old FL versus artifact without ischemia noted. continue medical management. patient asymptomatic. PDMP PDMP Reviewed: Not Reviewed Attestations 2 Medical Necessity Statement*: Deferred to primary Coding Level of Care Code Acute Code for [facility] Fwd Diagnoses Atrial fibrillation with RVR I48.91 Hyponatremia E87.1 Primary hypertension I10 Hypertension type: primary hypertension
--- NOTE | 2025-06-08 14:31 | PM.CONSULT ---
Providers/Reason For Consult Consulting Physician/Specialty*: Dr. Allen general surgery Reason for Consult*: Metastatic cancer of unknown primary Attending Physician: Misha Villegas MD Primary Care Provider: Ally Taylor MD History of Present Illness History of Present Illness Kennedy Yao is a 80 year old male whom surgery was consulted to discuss elective EGD and colonoscopy as part of his workup for possible metastatic cancer of unknown primary. Patient is admitted with A-fib with RVR. Medications/Allergies Home Medications ?Medication ?Instructions ?Recorded ?Confirmed ?Last Taken ?Type hydrocodone 10 mg-acetaminophen 1 tab PO Q6H PRN pain 30 days #90 06/02/25 06/06/25 06/05/25 Rx 325 mg tablet tabs lisinopril 20 mg tablet 20 mg PO DAILY 06/02/25 06/06/25 06/05/25 History polyethylene glycol 3350 17 17 g PO DAILY 06/06/25 06/06/25 06/05/25 History gram/dose oral powder (Miralax) Allergies Allergy/AdvReac Type Severity Reaction Status Date / Time No Known Allergies Allergy Unverified 06/04/25 10:10 Current Medications Generic Name Dose Route Start Last Admin Trade Name Freq PRN Reason Stop Dose Admin Acetaminophen 650 mg 06/06/25 11:05 06/07/25 02:29 Acetaminophen 325 Mg Tablet PO 650 mg Q6H PRN Administration Mild/Mod Pain Or Temp >/= 101 Bisacodyl 10 mg 06/06/25 11:05 06/08/25 00:29 Bisacodyl 5 Mg Tablet PO 10 mg DAILY PRN Administration Constipation (see protocol) Protocol Docusate Sodium 100 mg 06/06/25 17:00 06/08/25 04:25 Docusate Sodium 100 Mg Capsule PO 100 mg BID IGTA Administration DILTIAZEM HCL/D5W 125 mg in 125 mls @ 0 mls/hr 06/06/25 05:45 06/06/25 18:30 Cardizem IV 0 mg/hr .Q0M GITA 0 mls/hr Protocol Titration Per Protocol Piperacillin Sod/Tazobactam 50 mls @ 12.5 mls/hr 06/06/25 16:00 06/08/25 13:49 Sod 3.375 gm/ Sodium Chloride IV Infused Q8H GITA Infusion Protocol Oxycodone/Acetaminophen 1 tab 06/08/25 00:12 06/08/25 00:29 Oxycodone-Apap 5-325 Mg Tablet PO 1 tab Q4H PRN Administration MODERATE PAIN Polyethylene Glycol 17 gm 06/07/25 05:00 06/08/25 04:25 Polyethylene Glycol 3350 Pkt 17 Gm PO 17 gm DAILY GITA Administration PFSH Acute PFSH: Social History Smoking and tobacco/nicotine status: former use of tobacco/nicotine Vitals/I&O/Wt Last Vital Signs Temp 97.4 F L 06/08/25 04:00 Pulse 88 06/08/25 11:34 Resp 17 06/08/25 11:34 BP 119/80 06/08/25 11:34 Pulse Ox 93 06/08/25 11:34 O2 Del Method Room Air 06/08/25 04:00 06/07/25 06/08/25 06/08/25 22:59 06:59 14:59 Intake Total 50 / 340 49.375 / 389.375 50 / 50 Output Total 350 / 500 25 / 525 Balance -300 / -160 24.375 / -135.625 50 / 50 Weight last 48 hrs Weight 169 lb 1.513 oz Weight 169 lb 1.513 oz Weight 168 lb 13.985 oz Weight 168 lb 13.985 oz Physical Exam Narrative: Chest: Unlabored breathing room air. Heart: A-fib Abdomen: Soft, nontender, nondistended. Data 06/09/25 07:41 06/09/25 07:41 A&P Assessment and plan 1. Metastatic malignant neoplasm of unknown primary site: Plan: 80-year-old male whom surgery was consulted to discuss elective EGD and colonoscopy as part of his workup for suspected metastatic cancer of unknown primary. In my view it is not safe to proceed with endoscopy at this time since he is admitted with A-fib with RVR. Will postpone endoscopy at this point. PDMP PDMP Reviewed: Not Reviewed Coding Level of Care Code 61258 Diagnoses Metastatic malignant neoplasm of unknown primary site C79.9; C80.1
--- NOTE | 2025-06-08 15:20 | NMCV_ITS ---
NM david perf SPECT r/s* [id number] Kennedy Yao Age: 80 Gender: M : 1945 Exam Date: 06/08/2025 07:34 Ordering Phys: Isaac Senior MD ([email or web address]) Technologist: SARAH Ng Exam Location: [facility] Indications: cp STRESS TEST Please see separate stress test report in [facility] for full findings IMAGE PROTOCOL Rest/Stress 1 Lexiscan Day Radiopharmaceutical Dose (mCi) Administration Site Administered by Rest: Tc-99m 10.9 IV SARAH Ng Sestamibi Stress:Tc-99m 32.9 IV SARAH Ross Sestamibi Rest: 08-Jun-2025 60 Discovery 630 Stress: 08-Jun-2025 30 Discovery 630 0.4mg Lexiscan. Supine position only as patient was unable to lay prone. SPECT RESULTS Technical Quality: Good Raw Data Analysis: Normal Image Corrections: No attenuation or motion correction applied Summed Stress Score: 1 Summed Rest Score: 2 Summed Difference Score: 0 PERFUSION FINDINGS Medium size area of fixed perfusion defect noted in basal to distal inferoseptal wall on both rest and stress images in the absence of wall motion normality it could be an artifact. No ischemia noted. FUNCTIONAL RESULTS (calculated via Gated SPECT) Stress Image LV EF (%): 69 Stress EDV (mL):70 TID: 0.76 Stress ESV (mL):22 FUNCTIONAL FINDINGS: There is normal left ventricular systolic function. IMPRESSIONS Medium sized area of fixed perfusion defect noted in basal to distal inferoseptal wall on both rest and stress images suggestive of old myocardial infarction versus artifact. No ischemia noted on this study. Jason Hartmann MD (Electronically Signed) Final Date: 08 June 2025 11:19 S
--- NOTE | 2025-06-08 18:46 | ECG_ITS ---
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 Measurements Intervals [place] Rate: 78 P: 29 AR: 152 QRS: 4 QRSD: 86 T: 42 QT: 376 QTc: 429 Interpretive Statements SINUS RHYTHM SEPTAL MYOCARDIAL INFARCTION , OF INDETERMINATE AGE [40+ ms Q WAVE IN V1/V2] Compared to ECG 06/08/2025 10:49:44 Sinus tachycardia no longer present Myocardial infarct finding still present Electronically Signed On 06-09-2025 21:26:58 OCCUPATIONAL THERAPIST by Jenifer Wooten M.D. [email or web address]
--- NOTE | 2025-06-08 18:51 | PC.NURSE ---
Provider is called to come and talk with patient's family and patient about his condition. Nursing has spent over 30 minutes in talking with family about his health issues. They are requesting to talk with family and patient so he knows the seriousness of his health.
--- NOTE | 2025-06-08 20:54 | PM.PN ---
Subjective Subjective: Patient doing well this morning with no complaints. he had the stress test and was wondering about his EGD that was supposedly for tomorrow but cancelled since he is admitted as inpatient He was seen this morning and going in and out of A-fib with RVR and sinus tach with PACs. EKG was taken that showed sinus tachycardia. Vitals/I&O/Wt Last Vital Signs Temp 97.6 F 06/08/25 19:52 Pulse 75 06/08/25 19:52 Resp 26 H 06/08/25 19:52 BP 109/66 06/08/25 19:52 Pulse Ox 92 06/08/25 19:52 O2 Del Method Room Air 06/08/25 19:52 06/08/25 06/08/25 06/08/25 06:59 14:59 22:59 Intake Total 49.375 / 389.375 50 / 50 Output Total 25 / 525 75 / 75 Balance 24.375 / -135.625 50 / 50 -75 / -25 Weight last 48 hrs Weight 76.7 kg Weight 76.7 kg Weight 76.6 kg Weight 76.6 kg Physical Exam Narrative: General: Alert and oriented, lying comfortably without any distress HEENT: Normocephalic, atraumatic, grossly unremarkable exam Cardio: normal rate rhythm with irregular rhythm, normal S1-S2 without any murmurs, rubs, or gallops and JVD normal Respiratory: normal vascular breathing on auscultation without any wheezes, stridor, rhonchi GI: Abdomen soft, nontender, nondistended, normoactive bowel sounds present all 4 quadrants, Neuro: intact cranial nerves motor and sensory and cerebellar/coordination function without any focal neurological deficit Behavior: Appropriate and cooperative Extremities: Adequate palpable pulses, patient having lichenification of the both arms and the legs since the patient has underlying condition of xerosis cutis Data 06/08/25 02:50 06/08/25 02:50 A&P Assessment and plan 1. Atrial fibrillation with RVR: Patient asymptomatic on presentation, noted to be in a fib RVR. Patient was initially started on Cardizem and also received intermittent boluses of Cardizem since he was getting in and out of atrial fibrillation with RVR Cardiology on board, started on sotalol 80 mg and to be seen in the morning. Myocardial perfusion scan reported fixed perfusion defect without any acute reversible ischemia. CHADS VASc score: 3 points, 4.6% risk of stroke/TIA/systemic embolism and will benefit from anticoagulation however it was held since the patient was planned for EGD, however currently not planned since patient is high risk at the moment. Enoxaparin 80 mg twice daily as per cardiology plan to continue Telemetry monitoring EKGs reviewed, if the patient goes into atrial fibrillation or having any symptoms then to repeat windows software developer vitals and hemodynamics 2. 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 Hyponatremia improved with gentle hydration. Continue to monitor sodium Hyponatremia workup with urine studies has been sent. If worsening sodium levels then consider nephrology on board 3. Dehydration: Received fluids, improved Adequate intake and output monitoring 4. Leukocytosis, unspecified type: Patient having worsening leukocytosis, however blood cultures till date is negative Imaging studies showed features of metastatic disease but no active infectious source. Inflammatory markers are raised that could also be due to malignancy. The patient is not having any septic shock or sepsis features on clinical exam However based on the patient immunocompromise status and given the benefit of doubt, continue on antibiotics. Repeat blood cultures requested If the patient repeat blood cultures are negative, then consider de-escalating antibiotics or discontinuation after clinical assessment. 5. Constipation, unspecified constipation type: Bowel regimen for constipation 6. Secondary malignancy of liver: See imaging as per above ? Follows oncologist, Dr. Jacobson outpatient ? Metastatic cancer in the process of staging w/ scheduled outpatient EGD, and colonsoscopy with Dr. Allen on 06/09/25 and was not proceeded send the patient is having atrial fibrillation with RVR and is unstable to proceed with that -Surgery consulted and to follow the recommendations 7. Secondary malignancy of bone marrow: As mentioned above 8. Primary hypertension: Patient presents with hypotension ? V/S q4h, monitor Hold any antihypertensive medications, currently blood pressure stable Plan: TSH minimally elevated ? TSH 4.44, send for T3 and T4 ? Patient to follow-up with PCP outpatient CODE STATUS: AND VTE/full dose anticoagulation: enoxaparin 80 mg twice daily PDMP PDMP Reviewed: Not Reviewed Attestations Medical Necessity Statement*: Patient will stay more than 2 midnights for further management of his atrial fibrillation with RVR and unstable parameters Time Spent in Patient Care: 16 - 35 minutes (>than 50% of time spent in counselling and/or direct pt care on unit). Other Attestations: Patient condition has been discussed at length with the patient/family, I have independently reviewed the chart labs imaging/diagnostics/EKG. the goals of care and code status with the patient/family/NOK/legal pest control service representative, and documented accordingly. I have reconciled the medications after confirmation/comorbidities/current clinical condition. The management has been done according to the current clinical condition with respect to patient goals of care and based on recommendations/guidelines. The patient/family has been informed about the current condition and further plan of care. Agreed with the plan of care and understood without any language barrier. Every effort was made to ensure accuracy of access registrar. Any obvious errors or omissions should be clarified with the author of the document. Coding Level of Care Code 65948 Diagnoses Atrial fibrillation with RVR I48.91 Hyponatremia E87.1 Dehydration E86.0 Leukocytosis, unspecified type D72.829 Leukocytosis type: unspecified Constipation, unspecified constipation type K59.00 Constipation type: unspecified constipation type Secondary malignancy of liver C78.7 Secondary malignancy of bone marrow C79.52 Primary hypertension I10 Hypertension type: primary hypertension
[2025-06-08 22:16] LABS: Free T4 Free Thyroxine 0.83 ng/dL (0.82-1.77)
[2025-06-09] VITALS (9 sets, daily range): BP systolic 109–170; BP diastolic 59–83; PULSE 71–87; RESP 18–24; TEMP 36.4–36.7; O2SAT 90–97
[2025-06-09 00:10] LABS: Creatinine Urine, Random 140 mg/dL (39-259); Microalbum Creatinine Ratio Ur 7 mg/dL (0-20)
[2025-06-09 00:11] LABS: Potassium, Radom Urine 77 mmol/L
[2025-06-09 00:25] LABS: Urine Random Chloride < 10 mmol/L; Urine Random Sodium < 10 mmol/L
[2025-06-09] MEDS: piperacillin-tazobactam 3.375 GM in sodium chloride 0.9% (plus) 50 ML IV ×2 (00:51→09:15)
[2025-06-09] MEDS: oxyCODONE-APAP 5-325 mg Tablet 1 TAB PO ×2 (02:57→20:59)
[2025-06-09] MEDS: polyethylene glycol 3350 Pkt 17 gm PO (05:25)
[2025-06-09 08:13] LABS: Hematocrit 35.2 % (37-53); Hemoglobin 11.80 g/dL (11.27-16.99); Mean Corpuscular HGB Conc 33.5 g/dL (30-55); Mean Corpuscular Hemoglobin 28.6 pg (27-33); Mean Corpuscular Volume 85.4 fl (82-101); Nucleated Red Blood Cells % 0 %; Platelet Count 216 10^3/cmm (157-399); Red Blood Count 4.12 10^6/uL (3.85-5.65); White Blood Count 22.95 10^3/uL (3.29-11.43)
[2025-06-09 08:36] LABS: Alanine Aminotransferase 16 U/L (0-41); Albumin Level 2.2 g/dL (3.5-5.2); Alkaline Phosphatase 132 U/L (40-130); Anion Gap 18.7 (5-19); Aspartate Amino Transferase 23 U/L (0-40); Blood Urea Nitrogen 30 mg/dL (8-23); Calcium 7.5 mg/dL (8.5-10.5); Carbon Dioxide 23 mmol/L (22-29); Chloride 92 mmol/L (98-107); Globulin 1.9 g/dL (1.3-4.6); Glucose 120 mg/dL (65-115); Osmolality Calculated 275 mOsm/kg (285-295); Potassium 4.7 mmol/L (3.5-5.1); Sodium 129 mmol/L (136-145); Total Protein 4.1 g/dL (6.6-8.7)
[2025-06-09 09:12] LABS: Magnesium 2.2 mg/dL (1.7-2.3)
--- NOTE | 2025-06-09 09:55 | ECG_ITS ---
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 Measurements Intervals [place] Rate: 68 P: 11 GA: 153 QRS: 7 QRSD: 93 T: 41 QT: 384 QTc: 409 Interpretive Statements SINUS RHYTHM Compared to ECG 06/08/2025 18:50:19 Myocardial infarct finding no longer present Electronically Signed On 06-09-2025 21:46:43 WEBSITE PROGRAMMER by Jenifer Wooten M.D. [id number] [id number]
--- NOTE | 2025-06-09 10:12 | P.PN_ITS ---
Subjective 2 Subjective: NAEON Vitals/I&O/Wt Last Vital Signs Temp 98.0 F 06/09/25 07:39 Pulse 73 06/09/25 07:39 Resp 24 H 06/09/25 07:39 BP 132/69 06/09/25 07:39 Pulse Ox 91 06/09/25 07:39 O2 Del Method Room Air 06/09/25 03:55 06/08/25 06/09/25 06/09/25 22:59 06:59 14:59 Intake Total 50 / 100 50 / 150 820 / 820 Output Total 100 / 100 30 / 30 Balance -50 / 0 50 / 50 790 / 790 Weight last 48 hrs Weight 168 lb 13.985 oz Weight 168 lb 13.985 oz Weight 169 lb 1.513 oz Weight 169 lb 1.513 oz Physical Exam 2 Narrative: in afib unlabored breathing ra abdomen soft, nt, nd Data 06/09/25 07:41 06/09/25 07:41 Micro: Microbiology 06/08/25 22:22 Blood Culture - Preliminary Blood SPECIMEN COLLECTED 06/08/25 21:13 Blood Culture - Preliminary Blood SPECIMEN COLLECTED A&P Assessment and plan 1. Metastatic malignant neoplasm of unknown primary site: Plan: 80-year-old male whom surgery was consulted to discuss elective EGD and colonoscopy as part of his workup for possible metastatic cancer with unknown primary. Discussed with son and patient the fact that it is not safe to proceed with endoscopy this time. They both expressed understanding. Once he is cleared from a cardiology standpoint he can return to clinic and discuss if he would like to proceed with endoscopy. Discussed with hospitalist PDMP PDMP Reviewed: Not Reviewed Attestations 2 Medical Necessity Statement*: N/A Coding Level of Care Code 59558 Diagnoses Metastatic malignant neoplasm of unknown primary site C79.9; C80.1
--- NOTE | 2025-06-09 11:04 | P.PN_ITS ---
<Statement entered by Pablo Solorzano M.D - 06/18/25 10:41> Patient was cared for in conjunction with an advanced practice practitioner.? I reviewed the chart and all pertinent data including imaging, telemetry, and laboratory results.? I discussed the patient in detail with the advanced practice practitioner.? Please see? their documentation for progress note, testing results and agreed upon plan of care for the patient. Subjective 2 Subjective: Patient has converted back to sinus rhythm. He had some heart rates in the 40s and 50s when he converted around 3 AM this morning. He ran in the 50s until about 6 this morning and then has steadily ran in the 70s. Heart rate has been controlled. Blood pressure well-controlled. Vitals/I&O/Wt Last Vital Signs Temp 98.0 F 06/09/25 07:39 Pulse 73 06/09/25 07:39 Resp 24 H 06/09/25 07:39 BP 132/69 06/09/25 07:39 Pulse Ox 91 06/09/25 07:39 O2 Del Method Room Air 06/09/25 03:55 06/08/25 06/09/25 06/09/25 22:59 06:59 14:59 Intake Total 50 / 100 50 / 150 820 / 820 Output Total 100 / 100 30 / 30 Balance -50 / 0 50 / 50 790 / 790 Weight last 48 hrs Weight 168 lb 13.985 oz Weight 168 lb 13.985 oz Weight 169 lb 1.513 oz Weight 169 lb 1.513 oz Physical Exam 2 Narrative: General: No apparent distress HENMT: normoceophalic Muskuloskeletal: Full ROM Respiratory: Normal respiratory effort, clear to auscultation bilaterally throughout all lung malhotra, no use of accessory muscles Cardio: No JVD, regular rate and rhythm, S1 S2 normal, no murmurs, peripheral pulses 2+ radial palpated bilaterally GI: Normal to inspection, nondistended Extremities: Full ROM, normal, normal capillary refill, no cyanosis or edema Neuro: Alert and oriented x4, no focal motor deficits Psych: Affect normal, denies suicidal ideation, mental status grossly normal Skin: No rashes or lesions noted, no wounds Data 06/09/25 07:41 06/09/25 07:41 Micro: Microbiology 06/08/25 22:22 Blood Culture - Preliminary Blood SPECIMEN COLLECTED 06/08/25 21:13 Blood Culture - Preliminary Blood SPECIMEN COLLECTED A&P Assessment and plan 1. Atrial fibrillation with RVR: 2. Hyponatremia: 3. Primary hypertension: Plan: Patient has been given 1 dose of sotalol 80 mg. Creatinine clearance is 55.8. QTc normal at 429. Patient has had some slight bradycardia with this therefore we will put patient on sotalol 80 mg p.o. twice daily. EKG 2 hours after each dose and if patient's QTc is 500 or greater dose should be held. Electrolytes including mag and potassium as well as renal function will be looked at in the AM. Patient is not getting the colonoscopy so we will transition to oral a apixaban 5 mg twice daily for stroke coverage. PDMP PDMP Reviewed: Not Reviewed Attestations 2 Medical Necessity Statement*: Defer to primary. Coding Level of Care Code Acute Code for [facility] Fwd Diagnoses Atrial fibrillation with RVR I48.91 Hyponatremia E87.1 Primary hypertension I10 Hypertension type: primary hypertension
--- NOTE | 2025-06-09 14:18 | ECG_ITS ---
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 Measurements Intervals [place] Rate: 72 P: 22 [place]: 165 QRS: 7 QRSD: 86 T: 40 QT: 404 QTc: 445 Interpretive Statements SINUS RHYTHM Compared to ECG 06/09/2025 10:08:52 No significant changes Electronically Signed On 06-09-2025 21:43:09 DEPARTMENT CLERK by Jenifer Wooten M.D. [email or web address] [id number]
--- NOTE | 2025-06-09 16:18 | PC.NURSE ---
patient's son expressed concern about the patient being discharged too soon and the alf not being able to properly take care of the patient. Son also concerned because [place] the [place] two days and doesn't want to burden his with the discharge. Dr Villegas notified about son's wishes for patient to remain inpatient.
--- NOTE | 2025-06-09 17:05 | PC.NURSE ---
patient refusing all meds, Dr Villegas notified.
--- NOTE | 2025-06-09 17:06 | PC.NURSE ---
Patient states he does not want to be hooked up to anything. Patient stated I just want to lay here and as fast as I can. Dr Villegas notified.
--- NOTE | 2025-06-09 17:22 | P.PN_ITS ---
Subjective 2 Subjective: Patient was seen in the morning and he was feeling a little bit tired and overwhelmed because of him staying in the hospital and still not improving. His vitals and further diagnostics were reviewed. Cardiology on board. Patient has converted back to sinus rhythm. He had some heart rates in the 40s and 50s when he converted around 3 AM this morning. He ran in the 50s until about 6 this morning and then has steadily ran in the 70s. Heart rate has been controlled. Blood pressure well-controlled. Vitals/I&O/Wt Last Vital Signs Temp 98.0 F 06/09/25 07:39 Pulse 72 06/09/25 15:43 Resp 21 H 06/09/25 15:43 BP 170/83 06/09/25 15:43 Pulse Ox 97 06/09/25 15:43 O2 Del Method Room Air 06/09/25 12:00 06/09/25 06/09/25 06/09/25 06:59 14:59 22:59 Intake Total 50 / 150 1490 / 1490 Output Total 30 / 30 Balance 50 / 50 1460 / 1460 Weight last 48 hrs Weight 76.6 kg Weight 76.6 kg Weight 76.7 kg Weight 76.7 kg Physical Exam 2 Narrative: General: Alert and oriented, lying comfortably without any distress HEENT: Normocephalic, atraumatic, grossly unremarkable exam Cardio: normal rate rhythm, normal S1-S2 without any murmurs, rubs, or gallops and JVD normal Respiratory: normal vascular breathing on auscultation without any wheezes, stridor, rhonchi GI: Abdomen soft, nontender, nondistended, normoactive bowel sounds present all 4 quadrants, Neuro: intact cranial nerves motor and sensory and cerebellar/coordination function without any focal neurological deficit Behavior: Appropriate and cooperative Extremities: Adequate palpable pulses, patient having lichenification of the both arms and the legs since the patient has underlying condition of xerosis cutis Data 06/09/25 07:41 06/09/25 07:41 Micro: Microbiology 06/08/25 22:22 Blood Culture - Preliminary Blood SPECIMEN COLLECTED 06/08/25 21:13 Blood Culture - Preliminary Blood SPECIMEN COLLECTED A&P Assessment and plan 1. Atrial fibrillation with RVR: Cardiology consulted and on board patient asymptomatic on presentation, noted to be in a fib RVR. Patient was initially started on Cardizem and also received intermittent boluses of Cardizem since he was getting in and out of atrial fibrillation with RVR Myocardial perfusion scan reported fixed perfusion defect without any acute reversible ischemia. CHADS VASc score: 3 points, 4.6% risk of stroke/TIA/systemic embolism and will benefit from anticoagulation however it was held since the patient was planned for EGD, however currently not planned since patient is high risk at the moment. Sotalol 80 mg p.o. twice daily, EKG 2 hours after each dose and if QTc is 500 or greater then to hold the dose Monitor electrolytes especially potassium as well as with renal functions Enoxaparin 80 mg twice daily as per cardiology plan to continue Telemetry monitoring EKGs reviewed, if the patient goes into atrial fibrillation or having any symptoms then to repeat child care group leader vitals and hemodynamics 2. 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 Continue to monitor sodium Hyponatremia workup with urine studies reviewed, awaiting urine osmolarity If worsening sodium levels then consider nephrology on board 3. Dehydration: Received fluids, improved Adequate intake and output monitoring 4. Leukocytosis, unspecified type: Patient having worsening leukocytosis, however blood cultures till date is negative Imaging studies showed features of metastatic disease but no active infectious source. Inflammatory markers are raised that could also be due to malignancy. The patient is not having any septic shock or sepsis features on clinical exam However based on the patient immunocompromise status and given the benefit of doubt, continue on antibiotics. Repeat blood cultures requested If the patient repeat blood cultures are negative, then consider de-escalating antibiotics or discontinuation after clinical assessment. 5. Constipation, unspecified constipation type: Bowel regimen for constipation 6. Secondary malignancy of liver: See imaging as per above ? Follows oncologist, Dr. Jacobson outpatient ? Metastatic cancer in the process of staging w/ scheduled outpatient EGD, and colonsoscopy with Dr. Allen on 06/09/25 and was not proceeded send the patient is having atrial fibrillation with RVR and is unstable to proceed with that -Surgery consulted and advised to delay EGD since the patient is having atrial fibrillation which is uncontrolled and is at risk of the procedure. A thorough discussion between the son, and the patient has been done they both agreed to delay based on the patient risks and benefits. And appreciate the medical team plan and agreed with it without any language barrier Once the patient gets stable and is cleared then it can be considered to proceed with a endoscopy. 7. Secondary malignancy of bone marrow: As mentioned above 8. Primary hypertension: Patient presents with hypotension ? V/S q4h, monitor Hold any antihypertensive medications, currently blood pressure stable Plan: TSH minimally elevated ? TSH 4.44, likely subclinical, continue to monitor ? Patient to follow-up with PCP outpatient CODE STATUS: AND VTE/full dose anticoagulation: enoxaparin 80 mg twice daily as per cardiac recommendations PDMP PDMP Reviewed: Not Reviewed Attestations 2 Medical Necessity Statement*: Patient will stay more than 2 midnights since the patient is having atrial fibrillation which has been uncontrolled and started recently on a new regimen, to observe response and manage accordingly Time Spent in Patient Care: 16 - 35 minutes (>than 50% of time sp ent in counselling and/or direct pt care on unit) . Other Attestations: Patient condition has been discussed at length with the patient/family, I have independently reviewed the chart labs imaging/diagnostics/EKG. the goals of care and code status with the patient/family/NOK/legal sales representative meats, and documented accordingly. I have reconciled the medications after confirmation/comorbidities/current clinical condition. The management has been done according to the current clinical condition with respect to patient goals of care and based on recommendations/guidelines. The patient/family has been informed about the current condition and further plan of care. Agreed with the plan of care and understood without any language barrier. Every effort was made to ensure accuracy of art gallery internship. Any obvious errors or omissions should be clarified with the author of the document. Coding Level of Care Code 48901 Diagnoses Atrial fibrillation with RVR I48.91 Hyponatremia E87.1 Dehydration E86.0 Leukocytosis, unspecified type D72.829 Leukocytosis type: unspecified Constipation, unspecified constipation type K59.00 Constipation type: unspecified constipation type Secondary malignancy of liver C78.7 Secondary malignancy of bone marrow C79.52 Primary hypertension I10 Hypertension type: primary hypertension
--- NOTE | 2025-06-09 21:32 | PC.NURSE ---
Patient refused 2100 medications, stated right now he just wants to .
--- NOTE | 2025-06-10 05:38 | PC.NURSE ---
While assisting patient to bedside commode, patient stated I am going to today, and there is nothing you can do to stop it. Notified Dr. Hendrix of patients statements.
[2025-06-10 05:50] VITALS: BMI 25.5
[2025-06-10 07:45] VITALS: BP 178/95; PULSE 73; RESP 18; TEMP 36.9; O2SAT 92
--- NOTE | 2025-06-10 11:12 | PC.SOCIAL ---
IMM Updated Updated pt on IMM. No questions voiced. Provided pt a copy. Initialed, dated, & timed copy in chart.
[2025-06-10 11:16] VITALS: BP 159/84; PULSE 92; RESP 14; TEMP 36.7; O2SAT 92
[2025-06-10 11:58] VITALS: RESP 19
[2025-06-10] MEDS: oxyCODONE-APAP 5-325 mg Tablet 1 TAB PO ×2 (11:58→21:23)
--- NOTE | 2025-06-10 12:20 | P.PN_ITS ---
<Statement entered by Pablo Solorzano M.D - 06/18/25 10:48> Patient was cared for in conjunction with an advanced practice practitioner.? I reviewed the chart and all pertinent data including imaging, telemetry, and laboratory results.? I discussed the patient in detail with the advanced practice practitioner.? Please see? their documentation for progress note, testing results and agreed upon plan of care for the patient. Subjective 2 Subjective: Patient states he does not want any more medication. He stated I just want to here. I do not want any more medications that can keep me alive and I am tired of hurting like this . He did not get his evening sotalol dose. Vitals/I&O/Wt Last Vital Signs Temp 98.0 F 06/10/25 11:16 Pulse 92 06/10/25 11:16 Resp 19 H 06/10/25 11:58 BP 159/84 06/10/25 11:16 Pulse Ox 92 06/10/25 11:16 O2 Del Method Room Air 06/09/25 20:00 06/09/25 06/10/25 06/10/25 22:59 06:59 14:59 Intake Total 250 / 1740 Output Total 150 / 180 Balance 100 / 1560 Weight last 48 hrs Weight 168 lb 1.6 oz Weight 168 lb 13.985 oz Weight 168 lb 13.985 oz Physical Exam 2 Narrative: General: No apparent distress HENMT: normoceophalic Muskuloskeletal: Full ROM Respiratory: Normal respiratory effort, clear to auscultation bilaterally throughout all lung malhotra, no use of accessory muscles Cardio: No JVD, regular rate and rhythm, S1 S2 normal, no murmurs, peripheral pulses 2+ radial palpated bilaterally GI: Normal to inspection, nondistended Extremities: Full ROM, normal, normal capillary refill, no cyanosis or edema Neuro: Alert and oriented x4, no focal motor deficits Psych: Affect normal, denies suicidal ideation, mental status grossly normal Skin: No rashes or lesions noted, no wounds Data 06/09/25 07:41 06/09/25 07:41 Micro: Microbiology 06/08/25 22:22 Blood Culture - Preliminary Blood NEGATIVE TO DATE 06/08/25 21:13 Blood Culture - Preliminary Blood NEGATIVE TO DATE A&P Assessment and plan 1. Atrial fibrillation with RVR: 2. Hyponatremia: 3. Primary hypertension: Plan: At this time patient states he does not want any more medical therapy. Discussed with family at bedside. Educated patient if he were to fill severe palpitations or racing heart rate dizziness to let us know. Otherwise he does not wish to continue the medication. PDMP PDMP Reviewed: Not Reviewed Attestations 2 Medical Necessity Statement*: Deferred to primary Coding Level of Care Code Acute Code for [facility] Fwd Diagnoses Atrial fibrillation with RVR I48.91 Hyponatremia E87.1 Primary hypertension I10 Hypertension type: primary hypertension
--- NOTE | 2025-06-10 16:01 | PC.OT ---
OT tx attempted 2x today. First time cardiac nurse practitioner reports pt not appropriate for tx at this time and may be going on comfort care pending pt and family decision. Therapist later asked to attempt OT tx again as pt may now want to go to SNF. Pt currently unavailable as multiple family members and physician are in the room discussing pt plan. Tx to be attempted again tomorrow if indicated.
[2025-06-10] MEDS: piperacillin-tazobactam 3.375 GM in sodium chloride 0.9% (plus) 50 ML IV (17:29)
[2025-06-10 19:32] VITALS: BP 170/103; PULSE 83; RESP 20; TEMP 36.9; O2SAT 93
[2025-06-10 21:23] VITALS: RESP 20; O2SAT 93
--- NOTE | 2025-06-10 21:47 | P.PN_ITS ---
Subjective 2 Subjective: Over 24 hours the patient did not want to proceed with any treatment at medications and was saying again again that I give up and do not want to go through this anymore. He has been having frequent urge to go to the bathroom and weak stream. after multiple discussions and involving the family and with the help of assigned nurse as well, the patient became understanding and hopeful to go for the treatment. before agreeing he was seen by the train electronic technician and was adamant not to get any treatment. Now agrees to be compliant with the inpatient management, therefore to cont the management meanwhile and to have cardiology onboard tomorrow he was initially thinking that he does not enough time to survive and was saying he want to be left alone and wants to . there was no homicial or suicidal thinking, no psychotic features and sound and coherent mind. after thoroughly discussing his condition, all the risks and benefits of the treatment, he understood that he is getting better and would benefit with the treatment. Vitals/I&O/Wt Last Vital Signs Temp 98.5 F 06/10/25 19:32 Pulse 83 06/10/25 19:32 Resp 20 H 06/10/25 21:23 BP 170/103 06/10/25 19:32 Pulse Ox 93 06/10/25 21:23 O2 Del Method Nasal Cannula 06/10/25 19:32 06/10/25 06/10/25 06/10/25 06:59 14:59 22:59 Intake Total 250 / 1740 50 / 50 Output Total 150 / 180 250 / 250 Balance 100 / 1560 -250 / -250 50 / -200 Weight last 48 hrs Weight 76.249 kg Weight 76.6 kg Weight 76.6 kg Physical Exam 2 Narrative: General: Alert and oriented, lying comfortably without any distress HEENT: Normocephalic, atraumatic, grossly unremarkable exam Cardio: normal rate rhythm, normal S1-S2 without any murmurs, rubs, or gallops and JVD normal Respiratory: normal vascular breathing on auscultation without any wheezes, stridor, rhonchi GI: Abdomen soft, nontender, nondistended, normoactive bowel sounds present all 4 quadrants, Neuro: intact cranial nerves motor and sensory and cerebellar/coordination function without any focal neurological deficit Behavior: Appropriate and cooperative Extremities: Adequate palpable pulses, patient having lichenification of the both arms and the legs since the patient has underlying condition of xerosis cutis Urinary Catheter Management: Mtz: Cath Placed During This Visit: yes Urinary Catheter Date of Insertion: 06/10/25 Urinary Catheter Time of Insertion: 07:30 Data 06/09/25 07:41 06/09/25 07:41 Micro: Microbiology 06/08/25 22:22 Blood Culture - Preliminary Blood NEGATIVE TO DATE 06/08/25 21:13 Blood Culture - Preliminary Blood NEGATIVE TO DATE A&P Assessment and plan 1. Atrial fibrillation with RVR: Cardiology consulted and on board patient asymptomatic on presentation, noted to be in a fib RVR. Patient was initially started on Cardizem and also received intermittent boluses of Cardizem since he was getting in and out of atrial fibrillation with RVR Myocardial perfusion scan reported fixed perfusion defect without any acute reversible ischemia. CHADS VASc score: 3 points, 4.6% risk of stroke/TIA/systemic embolism and will benefit from anticoagulation however it was held since the patient was planned for EGD, however currently not planned since patient is high risk at the moment. Sotalol 80 mg p.o. twice daily, EKG 2 hours after each dose and if QTc is 500 or greater then to hold the dose patient did not recieve his morning dose since he was not compliant, after counseling, agreed and to continue the management Monitor electrolytes especially potassium as well as with renal functions Enoxaparin 80 mg twice daily as per cardiology plan to continue Telemetry monitoring EKGs reviewed, if the patient goes into atrial fibrillation or having any symptoms then to repeat elevator constructor vitals and hemodynamics 2. 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 Continue to monitor sodium Hyponatremia workup with urine studies reviewed, normal urine osm and low serum osm, coincinding with SIADH high likely cont to monitor for sodium restrict water intake to 1.2 -1.5l Max 3. Weak urinary stream: USG KUB, folleys catheter and to clamp for bladder fullness and USG to be done specifically to see the prostate size and volume started tamsulosin 0.4mg daily daily I/O monitor renal parameters 4. Leukocytosis, unspecified type: Patient having worsening leukocytosis, however blood cultures till date is negative Imaging studies showed features of metastatic disease but no active infectious source. Inflammatory markers are raised that could also be due to malignancy. The patient is not having any septic shock or sepsis features on clinical exam However based on the patient immunocompromise status and given the benefit of doubt, continue on antibiotics. Repeat blood cultures requested and prelim negative, tomorrow to desclate abx, patient does not exhibit signs and symptoms of infection or sepsis, likely high wbcs in the light of underlying malignancy. cont to monitor CBC 5. Dehydration: Received fluids, improved Adequate intake and output monitoring 6. Constipation, unspecified constipation type: Bowel regimen for constipation glycerine suppository and added lactulose since the patient did not pass adequate amount of stool and still feels urge 7. Secondary malignancy of liver: See imaging as per above ? Follows oncologist, Dr. Jacobson outpatient ? Metastatic cancer in the process of staging w/ scheduled outpatient EGD, and colonsoscopy with Dr. Allen on 06/09/25 and was not proceeded send the patient is having atrial fibrillation with RVR and is unstable to proceed with that -Surgery consulted and advised to delay EGD since the patient is having atrial fibrillation which is uncontrolled and is at risk of the procedure. A thorough discussion between the son, and the patient has been done they both agreed to delay based on the patient risks and benefits. And appreciate the medical team plan and agreed with it without any language barrier Once the patient gets stable and is cleared then it can be considered to proceed with a endoscopy. 8. Secondary malignancy of bone marrow: As mentioned above 9. Primary hypertension: Patient presents with hypotension ? V/S q4h, monitor - now the BP is in the higher side, added amlodipine 5mg daily monitor daily vitals Plan: TSH minimally elevated ? TSH 4.44, likely subclinical, continue to monitor ? Patient to follow-up with PCP outpatient CODE STATUS: AND VTE/full dose anticoagulation: apixaban for At fib PDMP PDMP Reviewed: Not Reviewed Attestations 2 Medical Necessity Statement*: Patient will stay overnight for the management of his atrial fibrillation and further discharge plan according after involving child support case officer since the patient is planned for rehab facility in the [facility]? Time Spent in Patient Care: 16 - 35 minutes (>than 50% of time sp ent in counselling and/or direct pt care on unit) . Other Attestations: Patient condition has been discussed at length with the patient/family, I have independently reviewed the chart labs imaging/diagnostics/EKG. the goals of care and code status with the patient/family/NOK/legal district sales representative, and documented accordingly. I have reconciled the medications after confirmation/comorbidities/current clinical condition. The management has been done according to the current clinical condition with respect to patient goals of care and based on recommendations/guidelines. The patient/family has been informed about the current condition and further plan of care. Agreed with the plan of care and understood without any language barrier. Every effort was made to ensure accuracy of behavioral science chair. Any obvious errors or omissions should be clarified with the author of the document. Coding Level of Care Code 31567 Diagnoses Atrial fibrillation with RVR I48.91 Hyponatremia E87.1 Weak urinary stream R39.12 Leukocytosis, unspecified type D72.829 Leukocytosis type: unspecified Dehydration E86.0 Constipation, unspecified constipation type K59.00 Constipation type: unspecified constipation type Secondary malignancy of liver C78.7 Secondary malignancy of bone marrow C79.52 Primary hypertension I10 Hypertension type: primary hypertension
[2025-06-10 23:46] VITALS: BP 133/65; PULSE 73; RESP 22; O2SAT 91
[2025-06-11] MEDS: piperacillin-tazobactam 3.375 GM in sodium chloride 0.9% (plus) 50 ML IV ×2 (01:30→09:26)
[2025-06-11 03:51] VITALS: BP 155/77; PULSE 87; RESP 19; TEMP 36.8; O2SAT 93
[2025-06-11] MEDS: lactulose oral liq 20 gm/30 mL UDC 10 GM PO (05:02)
[2025-06-11] MEDS: polyethylene glycol 3350 Pkt 17 gm PO (05:08)
[2025-06-11 05:28] LABS: Hematocrit 35.0 % (37-53); Hemoglobin 12.00 g/dL (11.27-16.99); Mean Corpuscular HGB Conc 34.3 g/dL (30-55); Mean Corpuscular Hemoglobin 28.9 pg (27-33); Mean Corpuscular Volume 84.3 fl (82-101); Nucleated Red Blood Cells % 0 %; Platelet Count 189 10^3/cmm (157-399); Red Blood Count 4.15 10^6/uL (3.85-5.65); White Blood Count 23.61 10^3/uL (3.29-11.43)
[2025-06-11 05:49] LABS: Alanine Aminotransferase 17 U/L (0-41); Albumin Level 2.3 g/dL (3.5-5.2); Alkaline Phosphatase 154 U/L (40-130); Anion Gap 18.7 (5-19); Aspartate Amino Transferase 24 U/L (0-40); Blood Urea Nitrogen 40 mg/dL (8-23); Calcium 8.0 mg/dL (8.5-10.5); Carbon Dioxide 21 mmol/L (22-29); Chloride 93 mmol/L (98-107); Globulin 2.0 g/dL (1.3-4.6); Glucose 98 mg/dL (65-115); Osmolality Calculated 276 mOsm/kg (285-295); Potassium 4.7 mmol/L (3.5-5.1); Sodium 128 mmol/L (136-145); Total Protein 4.3 g/dL (6.6-8.7)
--- NOTE | 2025-06-11 09:34 | PC.CHAP ---
Pastoral Care Encounter/Spiritual Assessment Type of Contact [] Declined fire tender visit [] Patient/Family/Request visit [] Outpatient visit [] Follow-up visit [] Physician referral [] Code/Alert [] Routine visit [] Staff referral [] Actively dying [x] Patient sleeping [] Family support [] [] Out of room [] Palliative care [] [] Receiving care in room [] Pre-surgical visit [] Trauma [] Long length of stay [] ICU visit [] Other: Relational/Emotional Strength [] Patient feels connected with others/family/visitors/staff [] Distress [] Loneliness/isolation [] Abandonment Spirituality of Patient [] Person of Yuli [] Attends Jain of their Yuli [] Believes in Prayer [] Reads Bible or Sabianism materials [] There are Spiritual issues to be addressed Search And Rescue Officer Interventions [] Prayer [] Active listening [] Non-anxious presence [] Spiritual/emotional support [] Crisis/trauma care [] Spiritual counseling [] Bereavement support [] Provided bereavement packet [] Provided Bible/devotional materials [] Provided toy/stuffed animal, coloring book to patient or family member [] Provided Communion [] Anointing/[place] [] Salvation [] Completed spiritual assessment [] Other: Impact on Illness or Injury [] Angry [] Fearful [] Anxious [] Often cries [] Exhaustion [] Unable to work [] Unable to attend amish [] Unable to walk/stand [] Unable to read [] Unable to drive [] Unable to eat/drink [] Unable to sleep [] Unable to be with family [] Patient intubated [] Other: Summary Time spent with patient
[2025-06-11 11:54] VITALS: RESP 18; O2SAT 92
[2025-06-11] MEDS: oxyCODONE-APAP 5-325 mg Tablet 1 TAB PO ×2 (11:54→21:27)
--- NOTE | 2025-06-11 12:32 | P.PN_ITS ---
<Statement entered by Pablo Solorzano M.D - 06/18/25 10:51> Patient was cared for in conjunction with an advanced practice practitioner.? I reviewed the chart and all pertinent data including imaging, telemetry, and laboratory results.? I discussed the patient in detail with the advanced practice practitioner.? Please see? their documentation for progress note, testing results and agreed upon plan of care for the patient. Subjective 2 Subjective: patient has started taking his medications again. Will get back on the monitor. No bradycardia at this time. He is in sinus rhythm. Will get EKG today to evaluate QT interval. Vitals/I&O/Wt Last Vital Signs Temp 98.3 F 06/11/25 03:51 Pulse 87 06/11/25 03:51 Resp 18 06/11/25 11:54 BP 155/77 06/11/25 03:51 Pulse Ox 92 06/11/25 11:54 O2 Del Method Nasal Cannula 06/11/25 03:51 06/10/25 06/11/25 06/11/25 22:59 06:59 14:59 Intake Total 50 / 50 290 / 340 Output Total 400 / 650 300 / 950 Balance -350 / -600 -10 / -610 Weight last 48 hrs Weight 168 lb 3.403 oz Weight 168 lb 1.6 oz Physical Exam 2 Narrative: General: No apparent distress HENMT: normoceophalic Muskuloskeletal: Full ROM Respiratory: Normal respiratory effort, clear to auscultation bilaterally throughout all lung malhotra, no use of accessory muscles Cardio: No JVD, regular rate and rhythm, S1 S2 normal, no murmurs, peripheral pulses 2+ radial palpated bilaterally GI: Normal to inspection, nondistended Extremities: Full ROM, normal, normal capillary refill, no cyanosis or edema Neuro: Alert and oriented x4, no focal motor deficits Psych: Affect normal, denies suicidal ideation, mental status grossly normal Skin: No rashes or lesions noted, no wounds Urinary Catheter Management: Mtz: Cath Placed During This Visit: yes Reason for Continuing Indwelling Catheter: Accurate Measurement of Urinary Output in Critically Ill Patients Urinary Catheter Date of Insertion: 06/10/25 Urinary Catheter Time of Insertion: 07:30 Data 06/11/25 04:34 06/11/25 04:34 Micro: Microbiology 06/06/25 05:45 Blood Culture - Final Blood NO GROWTH AFTER 5 DAYS 06/06/25 05:44 Blood Culture - Final Blood NO GROWTH AFTER 5 DAYS A&P Assessment and plan 1. Atrial fibrillation with RVR: 2. Hyponatremia: 3. Primary hypertension: Plan: At this time patient states he is taking his medications now. Working on placement for him. At this time, continue sotalol Eliquis, monitor for bradycardia. From our standpoint, ok to transfer/dc when necessary. PDMP PDMP Reviewed: Not Reviewed Attestations 2 Medical Necessity Statement*: Deferred to primary Coding Level of Care Code Acute Code for [facility] Diagnoses Atrial fibrillation with RVR I48.91 Hyponatremia E87.1 Primary hypertension I10 Hypertension type: primary hypertension
--- NOTE | 2025-06-11 12:33 | ECG_ITS ---
[employer] Test Date: 2025-06-11 Pat Name: Kennedy Yao Department: Room: 112 Gender: Male Data Processing Supervisor: : 1945 Requested By: Krysta Vargas Order Number: [id number] Reading MD: TEA FERRARA Measurements Intervals [place] Rate: 72 P: 35 MN: 154 QRS: -8 QRSD: 82 T: 65 QT: 433 QTc: 477 Interpretive Statements SINUS RHYTHM SEPTAL MYOCARDIAL INFARCTION , OF INDETERMINATE AGE [40+ ms Q WAVE IN V1/V2] Compared to ECG 06/09/2025 14:18:18 Myocardial infarct finding now present Electronically Signed On 06-17-2025 21:07:43 VERIFICATION MANAGER by TEA FERRARA [email or web address]
--- NOTE | 2025-06-11 14:25 | USR_ITS ---
PROCEDURE INFORMATION: Exam: US Retroperitoneal, Complete, Kidneys and Bladder Exam date and time: 06/11/2025 5:16 PM Age: 80 years old Clinical indication: Screening exam; Other: PT requested exam; Additional info: To look for prostate side, to check after clamping the folleys catheter for bladder volume and pv TECHNIQUE: Imaging protocol: Real-time ultrasound of the retroperitoneum with image documentation. Complete exam focused on the bilateral kidneys and urinary bladder. COMPARISON: US abdomen limited [id number] 05/22/2025 7:28 PM FINDINGS: Right kidney: No hydronephrosis. Left kidney: Left renal cyst measuring up to 2.7 cm. No hydronephrosis. Urinary bladder: Collapsed around a urinary catheter balloon. Prostate: Prostate gland not visualized. US/US renal BI* [id number] IMPRESSION: Prostate gland not visualized. Urinary catheter balloon in place.
--- NOTE | 2025-06-11 14:25 | PM.PN ---
Subjective Subjective: 06.11.25: The son wanted to transfer the patient to a urology services and called the pts PCP who called me for the son request to transfer him. However, the patient himself was not keen for transfer and wanted his urine and constipation issues to be resolved. I further explained to the family that patient condition can be managed here in [facility] and he is getting better. The cardiology can come and see him and he needs to cooperate with the physical therapy in order to be excepted for group home facility. The patient understood and showed willingness to stay. The son also agreed to keep him and to resolve his underlying conditions here in the hospital. The family was grateful for the management of the medical team 06.10.25: Over 24 hours the patient did not want to proceed with any treatment at medications and was saying again again that I give up and do not want to go through this anymore. He has been having frequent urge to go to the bathroom and weak stream. after multiple discussions and involving the family and with the help of assigned nurse as well, the patient became understanding and hopeful to go for the treatment. before agreeing he was seen by the linen tech and was adamant not to get any treatment. Now agrees to be compliant with the inpatient management, therefore to cont the management meanwhile and to have cardiology onboard tomorrow he was initially thinking that he does not enough time to survive and was saying he want to be left alone and wants to . there was no homicial or suicidal thinking, no psychotic features and sound and coherent mind. after thoroughly discussing his condition, all the risks and benefits of the treatment, he understood that he is getting better and would benefit with the treatment. Vitals/I&O/Wt Last Vital Signs Temp 98.3 F 06/11/25 03:51 Pulse 87 06/11/25 03:51 Resp 18 06/11/25 11:54 BP 155/77 06/11/25 03:51 Pulse Ox 92 06/11/25 11:54 O2 Del Method Nasal Cannula 06/11/25 03:51 06/10/25 06/11/25 06/11/25 22:59 06:59 14:59 Intake Total 50 / 50 290 / 340 50 / 50 Output Total 400 / 650 300 / 950 Balance -350 / -600 -10 / -610 50 / 50 Weight last 48 hrs Weight 76.3 kg Weight 76.249 kg Physical Exam Narrative: General: Alert and oriented, lying comfortably without any distress, on Mtz's catheter HEENT: Normocephalic, atraumatic, grossly unremarkable exam Cardio: normal rate rhythm, normal S1-S2 without any murmurs, rubs, or gallops and JVD normal Respiratory: normal vascular breathing on auscultation without any wheezes, stridor, rhonchi GI: Abdomen soft, nontender, nondistended, normoactive bowel sounds present all 4 quadrants, Neuro: intact cranial nerves motor and sensory and cerebellar/coordination function without any focal neurological deficit Behavior: Appropriate and cooperative Extremities: Adequate palpable pulses, patient having lichenification of the both arms and the legs since the patient has underlying condition of xerosis cutis Urinary Catheter Management: Mtz: Cath Placed During This Visit: yes Reason for Continuing Indwelling Catheter: Accurate Measurement of Urinary Output in Critically Ill Patients Urinary Catheter Date of Insertion: 06/10/25 Urinary Catheter Time of Insertion: 07:30 Data 06/11/25 04:34 06/11/25 04:34 Micro: Microbiology 06/06/25 05:45 Blood Culture - Final Blood NO GROWTH AFTER 5 DAYS 06/06/25 05:44 Blood Culture - Final Blood NO GROWTH AFTER 5 DAYS A&P Assessment and plan 1. Atrial fibrillation with RVR: Cardiology consulted and on board patient asymptomatic on presentation, noted to be in a fib RVR. Patient was initially started on Cardizem and also received intermittent boluses of Cardizem since he was getting in and out of atrial fibrillation with RVR Myocardial perfusion scan reported fixed perfusion defect without any acute reversible ischemia. CHADS VASc score: 3 points, 4.6% risk of stroke/TIA/systemic embolism and will benefit from anticoagulation however it was held since the patient was planned for EGD, however currently not planned since patient is high risk at the moment. Patient has been started on sotalol and tolerated well, as per cardiology he is cleared to be discharged on sotalol and apixaban for atrial fibrillation management and to follow-up with the cardiology as outpatient Maintain normal electrolytes and monitor renal functions Telemetry monitoring 2. 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 Possible multifactorial since the patient was also having low oral intake on the top of having malignancy, element of SIADH is evident since the patient osmolality is low. Continue to monitor sodium restrict water intake to 1.2 -1.5l Max 3. Weak urinary stream: USG KUB, folleys catheter and to clamp for bladder fullness and USG to be done specifically to see the prostate size and volume. started tamsulosin 0.4mg daily If prostate size increase consider finasteride as well daily I/O monitor renal parameters Urology referral at the time of discharge 4. Leukocytosis, unspecified type: Patient having worsening leukocytosis, however blood cultures till date is negative Imaging studies showed features of metastatic disease but no active infectious source. Inflammatory markers are raised that could also be due to malignancy. The patient is not having any septic shock or sepsis features on clinical exam However based on the patient immunocompromise status and given the benefit of doubt, continue on antibiotics. Repeat blood cultures requested and negative, to discontinue antibiotics Patient has no evidence of infection on signs and symptoms likely leukocytosis in the light of malignancy and advanced metastasis 5. Dehydration: Received fluids, improved Adequate intake and output monitoring 6. Constipation, unspecified constipation type: Bowel regimen for constipation glycerine suppository and added lactulose since the patient did not pass adequate amount of stool and still feels urge 7. Secondary malignancy of liver: See imaging as per above ? Follows oncologist, Dr. Jacobson outpatient ? Metastatic cancer in the process of staging w/ scheduled outpatient EGD, and colonsoscopy with Dr. Allen on 06/09/25 and was not proceeded send the patient is having atrial fibrillation with RVR and is unstable to proceed with that -Surgery consulted and advised to delay EGD since the patient is having atrial fibrillation which is uncontrolled and is at risk of the procedure. A thorough discussion between the son, and the patient has been done they both agreed to delay based on the patient risks and benefits. And appreciate the medical team plan and agreed with it without any language barrier Once the patient gets stable and is cleared then it can be considered to proceed with a endoscopy. 8. Secondary malignancy of bone marrow: As mentioned above 9. Primary hypertension: Patient presents with hypotension ? V/S q4h, monitor - now the BP is in the higher side, added amlodipine 5mg daily monitor daily vitals Plan: TSH minimally elevated ? TSH 4.44, likely subclinical, continue to monitor ? Patient to follow-up with PCP outpatient CODE STATUS: AND VTE/full dose anticoagulation: apixaban for At fib Patient is for transfer for group home facility however patient needs active participation with this physical therapy to be scheduled. PDMP PDMP Reviewed: Not Reviewed Attestations Medical Necessity Statement*: Patient will stay overnight for the management of his atrial fibrillation which is controlled and further discharge plan according, spoke to the insurance for peer to peer and since the patient did not show ability to participate in physical therapy therefore the case was not approved, informed the continuous pillowcase cutter to further work up and update the discharge plan after discussion with the family Time Spent in Patient Care: 16 - 35 minutes (>than 50% of time spent in counselling and/or direct pt care on unit). Other Attestations: Patient condition has been discussed at length with the patient/family, I have independently reviewed the chart labs imaging/diagnostics/EKG. the goals of care and code status with the patient/family/NOK/legal energy conservation representative, and documented accordingly. I have reconciled the medications after confirmation/comorbidities/current clinical condition. The management has been done according to the current clinical condition with respect to patient goals of care and based on recommendations/guidelines. The patient/family has been informed about the current condition and further plan of care. Agreed with the plan of care and understood without any language barrier. Every effort was made to ensure accuracy of rn resource nurse. Any obvious errors or omissions should be clarified with the author of the document. Coding Level of Care Code 37175 Diagnoses Atrial fibrillation with RVR I48.91 Hyponatremia E87.1 Weak urinary stream R39.12 Leukocytosis, unspecified type D72.829 Leukocytosis type: unspecified Dehydration E86.0 Constipation, unspecified constipation type K59.00 Constipation type: unspecified constipation type Secondary malignancy of liver C78.7 Secondary malignancy of bone marrow C79.52 Primary hypertension I10 Hypertension type: primary hypertension
[2025-06-11 16:00] VITALS: BP 121/67; PULSE 77; RESP 15; TEMP 36.9; O2SAT 97
--- NOTE | 2025-06-11 17:26 | PC.NURSE ---
Patients agleas catheter clamped for renal ultrasound post void at 1500. At 1630 patient stated that he could not handle the pressure and son and patient both told nurse to unclamp the catheter to let urine out. Nurse reclamped galeas after allowing about 50ml out. Son was hostile regarding the ultrasound techs timing. Nurse informed son that there were STAT ultrasound orders in the ER that caused the delay. Son then said This is fucking stat they need to get their asses down here this is priority. Nurse apologized for the delay to patient and family.
--- NOTE | 2025-06-11 17:39 | SUR.OPER ---
Attempted skilled OT treatment. Patient refused, son in room agreed with Pt's refusal.
--- NOTE | 2025-06-11 18:13 | PC.OT ---
PER P.T. AND FAMILY REPORT, D/C SKILLED OT SERVICES AT THIS TIME
[2025-06-11 20:00] VITALS: BP 173/78; PULSE 84; RESP 17; TEMP 36.7; O2SAT 91
[2025-06-11 21:27] VITALS: RESP 17; O2SAT 91
[2025-06-12] VITALS: BP 152/78; PULSE 75; RESP 17; O2SAT 92
[2025-06-12 04:00] VITALS: BP 152/83; PULSE 83; RESP 19; TEMP 36.7; O2SAT 93
[2025-06-12] MEDS: polyethylene glycol 3350 Pkt 17 gm PO (04:04)
[2025-06-12 04:47] LABS: Hematocrit 36.0 % (37-53); Hemoglobin 12.20 g/dL (11.27-16.99); Mean Corpuscular HGB Conc 33.9 g/dL (30-55); Mean Corpuscular Hemoglobin 28.6 pg (27-33); Mean Corpuscular Volume 84.5 fl (82-101); Nucleated Red Blood Cells % 0 %; Platelet Count 186 10^3/cmm (157-399); Red Blood Count 4.26 10^6/uL (3.85-5.65); White Blood Count 27.35 10^3/uL (3.29-11.43)
[2025-06-12 05:21] LABS: Alanine Aminotransferase 17 U/L (0-41); Albumin Level 2.3 g/dL (3.5-5.2); Alkaline Phosphatase 115 U/L (40-130); Anion Gap 16.6 (5-19); Aspartate Amino Transferase 24 U/L (0-40); Blood Urea Nitrogen 37 mg/dL (8-23); Calcium 8.5 mg/dL (8.5-10.5); Carbon Dioxide 24 mmol/L (22-29); Chloride 92 mmol/L (98-107); Globulin 2.7 g/dL (1.3-4.6); Glucose 123 mg/dL (65-115); Osmolality Calculated 276 mOsm/kg (285-295); Potassium 4.6 mmol/L (3.5-5.1); Sodium 128 mmol/L (136-145); Total Protein 5.0 g/dL (6.6-8.7)
[2025-06-12 08:00] VITALS: BP 134/72; PULSE 71; RESP 18; TEMP 36.5; O2SAT 93
--- NOTE | 2025-06-12 08:15 | PC.NURSE ---
Patient refused medication this morning. Stated that [facility] and is ready to so he does not want to take any medications aside from pain medications
--- NOTE | 2025-06-12 08:25 | PC.SOCIAL ---
IMM Updated Updated pt on IMM. No questions voiced. Provided pt a copy. Initialed, dated, & timed copy in chart.
[2025-06-12] MEDS: Fleet Enema 133 mL Enema PR (09:33)
--- NOTE | 2025-06-12 11:59 | PM.DCS ---
Discharge Providers Date of Admission: 06/06/25 08:53 Date of Discharge: June 12, 2025 Attending Provider at Admission: Edwardo Conde Attending Provider at Discharge: Misha Villegas MD Primary Care Provider: Ally Taylor MD Diagnoses at Discharge Discharge Diagnosis 1. Atrial fibrillation with RVR: 2. Hyponatremia: 3. Weak urinary stream: 4. Leukocytosis, unspecified type: 5. Dehydration: 6. Constipation, unspecified constipation type: 7. Secondary malignancy of liver: 8. Secondary malignancy of bone marrow: 9. Primary hypertension: Reason for Visit Reason for Visit: still constipated, pain weak Brief History: As per the admitting physician and retrospective notes: Kennedy Yao is a 80 year old male w/ pmhx of HLD, HTN, and was recently found to have metastatic cancer in the process of staging w/ scheduled outpatient EGD, and colonsoscopy with Dr. Allen on 06/09/25. Patient presents to ED today with c/o increased heart rate, and generalized weakness. Associated signs and symptoms of fever about a week(103 ?F ), shortness of breath with exertion, hypotension, difficulty urinating, and constipation. He was found to have have cardiac rhythm of atrial fibrillation with RVR. Patient was then started on Cardizem drip and sent to cardiac stepdown unit. He denies headache, syncope, chest pain, N/V/D, and recent medication changes. Patient reports attempting to alleviate constipation with lactulose 10gm/15mL he received after emergency department visit on 05/22/25, in which he was being seen for ABD pain and constipation. He states it made him go too often at that time and began to use Dulcolax again but reports both fail to alleviate constipation as he still has to continue to strain for liquid bowel movements. Patient to be admitted to hospitalist services for further medical management and care. While in ED a CBC, CMP, Troponin series, TSH, Lipase, Lactic acid was collected, reviewed, and results as follows: WBC 21.49, Neut 17.99, [place] 1.7, Hgb 12.8, Hct 38.5, Plt 277. Na 129, Cholride 90, K 4.7, Mag 2.7, Osmo 273, glucose 137, Trop baseline 40, 2hr Trop 32.82, Delta Trop -7.18, BNP 2645. CRP 227.3, Albumin 3.1, Lipase 78, TSH 4.44, Lactic acid 3.2. A UA was obtained as well and negative for UTI. While in ED patient received the following medications: Meropenem 500 mg IVP, Linezolid 600 mg IV, 2L NS bolus, Cardizem 20mg IVP bolus, then placed on Cardizem drip, Dilaudid 1 mg IVP, Zofran 4 mg IVP. Hospital Course Hospital Course During patient hospital stay he was managed as a case of atrial fibrillation with RVR. He was asymptomatic on presentation. Moi Vascor was around 3, cardiology taken on board. NM scan was done and it showed fixed perfusion defect without any acute reversible ischemia. Initially he he was given Cardizem boluses but did not improve. Later on started on sotalol 80 mg twice daily. He was monitored for QTc interval and telemetry for any bradycardia. He had mild episodes of bradycardia therefore at the time of discharge his medication dose was reduced to 40 mg twice daily. Anticoagulation with Eliquis has been added at the time of discharge as well. Patient had mild hyponatremia and later on stabilized around 129-128. He was having asymptomatic hyponatremia. 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 Patient water restriction of 1.2 to 1.5 L was done. The patient on and off at issues with the constipation and weak urinary stream. Ultrasound kidney ureter bladder was done and it did not show any obvious enlarged prostate/prostate was not visualized. Kidneys did not show any hydronephrosis. The patient kept on Mtz's catheter and urology appointment provided to follow-up within a week. The patient also had constipation bowel regimens were provided and he was able to pass bowel motion however still was feeling on and off urge to poop. He had leukocytosis which was unspecified since blood cultures were sent and repeat ones were also negative for any infectious source, possible reason likelihood of underlying malignancy since the patient did not exhibit obvious signs and symptoms with objective parameters of any infectious or sepsis. He was kept on some fluids to address his hydration. His kidney functions remained at 1.3 and nephrotoxic medications were held. Patient is recently known to have metastatic cancer and workup was scheduled including EGD however it was not done as he was admitted inpatient with atrial fibrillation with RVR. After discussion with the surgeons if we can do it as inpatient based on the patient and family request, it was suggested to hold it since he is unstable and carries risk of getting unstable during EGD. After discussion with the surgeon and family it was decided to postpone it until patient is stable and to be done/considered as outpatient. Patient blood pressure during the stay was a little bit on the higher side, due to his creatinine lisinopril was held and amlodipine started which somehow controlled his blood pressure. Of note there was an extensive discussion and thorough counseling of the patient along with the son and family because during patient hospital stay, the patient's gave up on all the management and was thinking that he is going to soon. His objective parameters were getting stable. With the patient willpower of not getting out of bed and refusing medications was noticed. Everyone from the medical team including the nurses, raspberry checker tried and counseled the patient to carry on the treatment since he is getting better. The son was also informed about his condition and he also tried with it. During the course, the son wanted to transfer the patient and called his father's PCP to call me for a transfer for possible urology intervention. Later on when I discussed with the patient since the patient carries the capacity to make decisions and informed the son that this is patient's own preference of transferring, the patient did not want any intervention and was refusing to proceed for transfer. And upon discussion of further informed that weak urinary stream or urge incontinence can be managed as outpatient and the patient does not carry acute intervention from urology as of now to proceed for a transfer with a rationale. After thorough discussion the family agreed with this. On and off the family was trying to seek nursing home facility transfer versus home hospice. Initially nursing home facility transfer was requested but it was denied since the patient refused to participate in physical therapy and was not having a willpower to get out of the bed and was saying I do not want to go out of the bed since I feel weak. Later on the family wanted to have home hospice. The bilingual patient support caseworker were informed about the situation and they tried everything to help the patient and the family. But the patient himself was giving up not to take any treatment and refusing on and off treatments. He preferred to go for home hospice. Therefore after thorough discussion, counseling about the risk and benefits of the management and all the complications have been thoroughly and extensively explained to the family including the patient without any language barrier. All the management has been done according to the guidelines and recommendations. And patient to be discharged after recommendation from cardiology and appropriate reconciliation and referrals has been made. Medications were reconciled after confirmation and according to patient comorbidities and appropriate follow-ups and referrals were provided at the time of discharge. Patient condition has been discussed at length with the patient/family, I have independently reviewed the chart labs imaging/diagnostics/EKG. the goals of care and code status with the patient/family/NOK/legal kiosk sales representative, and documented accordingly. The management has been done according to the current clinical condition with respect to patient goals of care and based on recommendations/guidelines. The patient/family has been informed about the current condition and further plan of care. Agreed with the plan of care and understood without any language barrier. Every effort was made to ensure accuracy of audio tape librarian. Any obvious errors or omissions should be clarified with the author of the document. Physical Exam Narrative: General: Alert and oriented, lying comfortably without any distress, on Mtz's catheter HEENT: Normocephalic, atraumatic, grossly unremarkable exam Cardio: normal rate rhythm, normal S1-S2 without any murmurs, rubs, or gallops and JVD normal Respiratory: normal vascular breathing on auscultation without any wheezes, stridor, rhonchi GI: Abdomen soft, nontender, nondistended, normoactive bowel sounds present all 4 quadrants, Neuro: intact cranial nerves motor and sensory and cerebellar/coordination function without any focal neurological deficit Behavior: Appropriate and cooperative Extremities: Adequate palpable pulses, patient having lichenification of the both arms and the legs since the patient has underlying condition of xerosis cutis Urinary Catheter Management: Mtz: Cath Placed During This Visit: yes Reason for Continuing Indwelling Catheter: Accurate Measurement of Urinary Output in Critically Ill Patients Urinary Catheter Date of Insertion: 06/10/25 Urinary Catheter Time of Insertion: 07:30 Discharge Data Studies Completed and Pending Completed Studies During Hospitalization Category Date Time Status CT chest abdomen pelvis [CT chest abdpel w/*[id number] Cat Scan 06/06/25 07:27 Completed ] Stat Cardiac Stress Test MIBI [Sestamibi Stress Test Request Exams 06/07/25 15:20 Completed ] Routine XR KUB portable [id number] Stat Exams 06/06/25 05:54 Completed XR chest 1V portable [id number] Stat Exams 06/06/25 05:54 Completed NM david perf SPECT r/s* [id number] Routine Nuc Med 06/08/25 15:20 Completed US echo complete [CV. echo complete* [id number]] Routine Ultrasound 06/06/25 11:11 Completed US renal BI* [id number] Routine Ultrasound 06/11/25 14:25 Completed Pending at discharge Category Date Time Status Blood Culture Stat Lab 06/08/25 22:22 Results Radiology Impressions Chest X-Ray 06/06/25 05:54 IMPRESSION: No acute findings. KUB X-Ray 06/06/25 05:54 IMPRESSION: No acute findings. Chest/Abdomen/Pelvis CT 06/06/25 07:27 IMPRESSION: Metastatic disease probably central lymph nodes and bone. No finding to explain the patient's sepsis. IMPRESSION: 1. Extensive metastatic disease. Several metastases appear to have slightly progressed since the recent prior study. 2. No findings to explain sepsis. COMMENTS: Consistent with the [employer]'s Incidental Findings Committee white paper (J Am Quan Radiol 2018): Any incidental renal lesion less than 1 cm or classified as too small to characterize, or any incidental cystic renal lesion characterized as simple-appearing, is likely benign. No follow-up imaging is recommended for these lesions per consensus recommendations based on imaging criteria. Renal Ultrasound 06/11/25 14:25 IMPRESSION: Prostate gland not visualized. Urinary catheter balloon in place. Laboratory Results WBC 27.35 10^3/uL (3.29-11.43) H 06/12/25 04:33 RBC 4.26 10^6/uL (3.85-5.65) 06/12/25 04:33 Hgb 12.20 g/dL (11.27-16.99) 06/12/25 04:33 Hct 36.0 % (37-53) L 06/12/25 04:33 MCV 84.5 fl (82-101) 06/12/25 04:33 MCH 28.6 pg (27-33) 06/12/25 04:33 MCHC 33.9 g/dL (30-55) 06/12/25 04:33 RDW 14.6 % (12.1-15.1) 06/12/25 04:33 Plt Count 186 10^3/cmm (157-399) 06/12/25 04:33 MPV 10.3 fL (7.4-10.4) 06/12/25 04:33 Neut % (Auto) 86.5 % 06/12/25 04:33 Lymph % (Auto) 5.5 % 06/12/25 04:33 [place] % (Auto) 6.4 % 06/12/25 04:33 Eos % (Auto) 0.1 % 06/12/25 04:33 Baso % (Auto) 0.3 % 06/12/25 04:33 Neut # (Auto) 23.67 10^3/uL (1.8-7.7) H 06/12/25 04:33 Lymph # (Auto) 1.5 10^3/uL (0.8-4.8) 06/12/25 04:33 [place] # (Auto) 1.7 10^3/uL (0.2-0.9) H 06/12/25 04:33 Eos # (Auto) 0.0 10^3/uL (0.0-0.8) 06/12/25 04:33 Baso # (Auto) 0.1 10^3/uL (0.0-0.1) 06/12/25 04:33 Nucleated RBC % (auto) 0 % 06/12/25 04:33 Nucleated RBCs # 0.0 /100WBC 06/12/25 04:33 Sodium 128 mmol/L (136-145) L 06/12/25 04:33 Potassium 4.6 mmol/L (3.5-5.1) 06/12/25 04:33 Chloride 92 mmol/L (98-107) L 06/12/25 04:33 Carbon Dioxide 24 mmol/L (22-29) 06/12/25 04:33 Anion Gap 16.6 (5-19) 06/12/25 04:33 BUN 37 mg/dL (8-23) H 06/12/25 04:33 Creatinine 1.3 mg/dL (0.7-1.2) H 06/12/25 04:33 GFR Calculation Not Reportable 06/12/25 04:33 Glucose 123 mg/dL (65-115) H 06/12/25 04:33 Calculated Osmolality 276 mOsm/kg (285-295) L 06/12/25 04:33 Lactic Acid 3.2 mmol/L (0.5-2.2) H 06/06/25 05:37 Lactic Acid (Sepsis) 2.1 mmol/L (0.5-2.2) 06/06/25 08:26 Calcium 8.5 mg/dL (8.5-10.5) 06/12/25 04:33 Magnesium 2.2 mg/dL (1.7-2.3) 06/09/25 07:41 Total Bilirubin 0.5 mg/dL (0.15-1.2) 06/12/25 04:33 AST 24 U/L (0-40) 06/12/25 04:33 ALT 17 U/L (0-41) 06/12/25 04:33 Alkaline Phosphatase 115 U/L (40-130) 06/12/25 04:33 Troponin T Baseline 40 ng/L (0-15) H 06/06/25 05:37 Troponin T 60 Minute 32.82 ng/L (0-15) H 06/06/25 06:27 Delta Troponin T -7.18 ABS# (0-10) L 06/06/25 06:27 Troponin T Hi Sens 6Hr 24.92 ng/L (0-15) H 06/06/25 11:30 Troponin T Hi Sens 6Hr Delta -15.08 ng/L (0-12) L 06/06/25 11:30 C-Reactive Protein 227.3 mg/L (0.0-4.9) H 06/06/25 05:37 NT-Pro-B Natriuret Pep 2183 pg/mL (0-450) H 06/08/25 02:50 Total Protein 5.0 g/dL (6.6-8.7) L 06/12/25 04:33 Albumin 2.3 g/dL (3.5-5.2) L 06/12/25 04:33 Globulin 2.7 g/dL (1.3-4.6) 06/12/25 04:33 Triglycerides 169 mg/dL (0-150) H 06/07/25 02:18 Cholesterol 65 mg/dL (0-200) 06/07/25 02:18 LDL Cholesterol, Calc 19 mg/dL (50-129) L 06/07/25 02:18 HDL Cholesterol 12 mg/dL (60-100) L 06/07/25 02:18 LDL/HDL Ratio 1.58 RATIO (0.00-3.22) 06/07/25 02:18 Cholesterol/HDL Ratio 5.42 mg/dL (1.0-5.00) H 06/07/25 02:18 Lipase 78 U/L (13-60) H 06/06/25 05:37 TSH 4.44 uIU/mL (0.27-4.20) H 06/06/25 05:37 Free T4 0.83 ng/dL (0.82-1.77) 06/08/25 02:50 Free T3 1.6 PG/ML (2.0-4.4) L 06/08/25 02:50 Urine Color [place] (Yellow) A 06/06/25 06:38 Urine Appearance Clear (CLEAR) 06/06/25 06:38 Urine pH 5.5 (5-7) 06/06/25 06:38 Ur Specific [place] 1.022 (1.005-1.030) 06/06/25 06:38 Urine Protein Trace (Negative) A 06/06/25 06:38 Urine Glucose (UA) Negative (Normal) 06/06/25 06:38 Urine Ketones Trace (Negative) 06/06/25 06:38 Urine Blood Trace (Negative) A 06/06/25 06:38 Urine Nitrate Negative (Negative) 06/06/25 06:38 Urine Bilirubin Negative (Negative) 06/06/25 06:38 Urine Urobilinogen 0.2 mg/dL (Negative) 06/06/25 06:38 Ur Leukocyte Esterase Negative (Negative) 06/06/25 06:38 Urine RBC 0-2 /hpf (0-2) 06/06/25 06:38 Urine WBC 0-5 /hpf (0-5) 06/06/25 06:38 Ur Squamous Epith Cells 0-5 /hpf (0-5) 06/06/25 06:38 Amorphous Sediment Not Reportable 06/06/25 06:38 Urine Bacteria None seen /hpf (NONE) 06/06/25 06:38 Hyaline Casts 4.11 /lpf 06/06/25 06:38 Urine Osmolality 627 mOsm/kg (50-1200) 06/08/25 22:34 Ur Random Microalbumin 1 ug/dL (0-20) 06/08/25 22:34 U Random Total Protein 39 mg/dL 06/08/25 22:34 Ur Random Sodium < 10 mmol/L 06/08/25 22:34 Ur Random Potassium 77 mmol/L 06/08/25 22:34 Ur Random Chloride < 10 mmol/L 06/08/25 22:34 Urine Creatinine 140 mg/dL (39-259) 06/08/25 22:34 Urine Creatinine 141 mg/dL (39-259) 06/08/25 22:34 Microalb/Creat Ratio 7 mg/dL (0-20) 06/08/25 22:34 Serum Ketones Negative (Negative) 06/06/25 05:37 Vitals Last Vital Signs Temp 97.7 F 06/12/25 08:00 Pulse 71 06/12/25 08:00 Resp 18 06/12/25 08:00 BP 134/72 06/12/25 08:00 Pulse Ox 93 06/12/25 08:00 O2 Del Method Room Air 06/12/25 08:00 Discharge Plan Discharge Patient Disposition: Hospice - Medical Facility Condition: Stable Prescriptions: New amlodipine 5 mg Tablet 5 mg PO DAILY 90 Days Qty: 90 0RF tamsulosin 0.4 mg Capsule 0.4 mg PO DAILY 60 Days Qty: 60 0RF Eliquis 5 mg Tablet 5 mg PO BID@0900,2100 60 Days Qty: 120 0RF sotalol 80 mg tablet 40 mg PO BID 60 Days Qty: 60 0RF Continued hydrocodone-acetaminophen 10-325 mg tablet 1 tab PO Q6H PRN (Reason: pain) 30 Days Qty: 90 0RF polyethylene glycol 3350 [Miralax] 17 gram/dose Powder 17 g PO DAILY Discontinued lisinopril 20 mg tablet 20 mg PO DAILY Chief Minister OK for DC: Cardiology Discharge Order = DC NOW: Discharge Order (Routine); Ordered 06/12/25 Ordered By: Misha Villegas Referrals: [facility] [Outside] [facility] [Outside] Cosme Russo MD [Referring, Urology] - 1 week Referral Note: weak urinary stream, prostate not visualised on USG KUB, possible urge, for urology onboard, family also prefers to see the urology Krysta Vargas NP [Nurse Practitioner, Cardiology] - 07/01/25 1:00 pm Ra Deluna MD [Staff Physician, [facility]] Referral Note: to follow post discharge renal functions and overall healthcare maintenance Discharge Diet: Cardiac Discharge Activity: Resume usual activity Patient Instructions: Atrial Fibrillation, Dehydration - Adult, Amlodipine (By mouth), Tamsulosin (By mouth), Sotalol (By mouth), Apixaban (By mouth), Constipation (DC), Hyponatremia (DC), Chronic Hypertension (DC), Abdominal Pain (ED), Opioid Safety, Patient Portal & Smith Instructions Discharge Attestations Time Spent in Discharge Care*: greater than 30 min Specific Discharge Activities: educating patient, educating and/or supporting family/caregiver, discussing with pcp/other providers, discussing with bilingual patient support caseworker/social workers/dc planners, documenting/other paperwork and evaluating patient/reviewing data Status at Discharge: Cognitive status at discharge: cognitively intact, Behavioral status at discharge: can be uncooperative, Functional status at discharge: other assisted ambulation, Overall status at discharge: patient is progressing back to baseline Quality Metrics Clinical Quality Measures [ No reported AMI, CVA or VTE this stay] Coding Level of Care Code 97681 Diagnoses Atrial fibrillation with RVR I48.91 Hyponatremia E87.1 Weak urinary stream R39.12 Leukocytosis, unspecified type D72.829 Leukocytosis type: unspecified Dehydration E86.0 Constipation, unspecified constipation type K59.00 Constipation type: unspecified constipation type Secondary malignancy of liver C78.7 Secondary malignancy of bone marrow C79.52 Primary hypertension I10 Hypertension type: primary hypertension
[2025-06-12 12:00] VITALS: BP 132/67; PULSE 67; RESP 23; TEMP 36.4; O2SAT 92
--- NOTE | 2025-06-12 13:13 | P.PN_ITS ---
<Statement entered by Pablo Solorzano M.D - 06/18/25 10:56> Patient was cared for in conjunction with an advanced practice practitioner.? I reviewed the chart and all pertinent data including imaging, telemetry, and laboratory results.? I discussed the patient in detail with the advanced practice practitioner.? Please see? their documentation for progress note, testing results and agreed upon plan of care for the patient. Subjective 2 Subjective: Patient in bed resting. He had 1 episode where heart rate was in the low 40s. Otherwise he has remained normal sinus. Vitals/I&O/Wt Last Vital Signs Temp 97.6 F 06/12/25 12:00 Pulse 67 06/12/25 12:00 Resp 23 H 06/12/25 12:00 BP 132/67 06/12/25 12:00 Pulse Ox 92 06/12/25 12:00 O2 Del Method Room Air 06/12/25 12:00 06/11/25 06/12/25 06/12/25 22:59 06:59 14:59 Intake Total 720 / 770 Output Total 400 / 400 250 / 650 Balance -400 / -350 470 / 120 Weight last 48 hrs Weight 167 lb 5.294 oz Weight 168 lb 3.403 oz Physical Exam 2 Narrative: General: No apparent distress HENMT: normoceophalic Muskuloskeletal: Full ROM Respiratory: Normal respiratory effort, clear to auscultation bilaterally throughout all lung malhotra, no use of accessory muscles Cardio: No JVD, regular rate and rhythm, S1 S2 normal, no murmurs, peripheral pulses 2+ radial palpated bilaterally GI: Normal to inspection, nondistended Extremities: Full ROM, normal, normal capillary refill, no cyanosis or edema Neuro: Alert and oriented x4, no focal motor deficits Psych: Affect normal, denies suicidal ideation, mental status grossly normal Skin: No rashes or lesions noted, no wounds Urinary Catheter Management: Mtz: Cath Placed During This Visit: yes Reason for Continuing Indwelling Catheter: Accurate Measurement of Urinary Output in Critically Ill Patients Urinary Catheter Date of Insertion: 06/10/25 Urinary Catheter Time of Insertion: 07:30 Data 06/12/25 04:33 06/12/25 04:33 A&P Assessment and plan 1. Atrial fibrillation with RVR: 2. Hyponatremia: 3. Primary hypertension: Plan: At this time patient states he is taking his medications now. Working on placement for him. At this time, decrease sotalol to 40 BID due to bradycardia, continue Eliquis, monitor for bradycardia. From our standpoint, ok to transfer/dc when necessary. PDMP PDMP Reviewed: Not Reviewed Attestations 2 Medical Necessity Statement*: Deferred to primary. Coding Level of Care Code Acute Code for Chg Fwd Diagnoses Atrial fibrillation with RVR I48.91 Hyponatremia E87.1 Primary hypertension I10 Hypertension type: primary hypertension
[2025-06-12 15:59] VITALS: BP 132/67; PULSE 67; RESP 18; TEMP 36.4; O2SAT 95
== END 2025-06-12 16:06 | disposition hospice, inpatient (51) | DRG 309 ==
LOC: ER 06:12 → CSU 09:02
PROVIDERS: Emergency Medicine; Internal Medicine Cardiovascular Disease; Nurse Practitioner Family; Admitting Provider Internal Medicine; Emergency Provider Emergency Medicine; PCP Internal Medicine; Visit Provider Student in an Organized Health Care Education/Training Program
DX: I48.91 Unspecified atrial fibrillation (principal); C78.7 Secondary malignant neoplasm of liver and intrahepatic bile duct; E87.1 Hypo-osmolality and hyponatremia; C79.52 Secondary malignant neoplasm of bone marrow; K59.00 Constipation, unspecified; E86.0 Dehydration; I10 Essential (primary) hypertension; E78.5 Hyperlipidemia, unspecified; Z87.891 Personal history of nicotine dependence; D72.829 Elevated white blood cell count, unspecified; R39.12 Poor urinary stream; Z51.5 Encounter for palliative care
CPT/HCPCS: 36415; 51702; 71045; 71260; 74018; 74177; 76770; 76857; 78452; 80053; 80061; 81001; 82009; 82044; 82436; 82570; 83605; 83690; 83735; 83880; 83935; 84133; 84156; 84295; 84300; 84439; 84443; 84481; 84484; 85025; 86140; 87040; 93005; 93306; 96365; 96366; 96367; 96372; 97162; 97167; 97530; 99284; A9500; J1171; J1650; J2020; J2185; J2405; J2543; J2785; J3490; J7030; J9999